=== PATIENT | female | born 1940 | race Caucasian/White ===

== ENCOUNTER → 2017-10-16 16:13 | Outpatient (CLI) | payer MEDICARE, OTHER, SELFPAY ==
--- NOTE | 2017-10-16 16:18 | MM_ITS ---
MM Dig screening mamm BI w/CAD CAD Screening COMPARISON: Digital mammograms 09/26/2016 and 09/23/2015 INDICATION: There is been previous lumpectomy left breast for malignancy and there is a history of breast cancer in patient's maternal aunt diagnosed after menopause. TECHNIQUE: Standard CC and MLO images were obtained. R2 CAD reviewed. FINDINGS: Again noted is a markedly dense and heterogenic parenchymal pattern lessening the sensitivity of mammography. There are stable postlumpectomy scarring in the axillary tail left breast with surgical clips noted. There are few benign-appearing calcification in each breast. There is no new or suspicious lesion in either breast and there are no suspicious microcalcifications. IMPRESSION: Stable exam with dense and heterogenic parenchymal pattern and no suspicious lesion seen BI-RADS Category: 2 Benign Finding(s) RECOMMENDED FOLLOW-UP: 1YR - 1 YEAR FOLLOW-UP (A letter has been sent to the patient regarding results of the study.)
== END ==
PROVIDERS: Family Provider Internal Medicine Adolescent Medicine; PCP Internal Medicine Adolescent Medicine; Visit Provider Internal Medicine Adolescent Medicine
DX: Z12.31 Encounter for screening mammogram for malignant neoplasm of breast (principal)
CPT/HCPCS: 77067

== ENCOUNTER → 2018-05-28 13:30 | Outpatient (CLI) | payer MEDICARE, OTHER, SELFPAY ==
--- NOTE | 2018-05-28 13:34 | MR_ITS ---
MR shoulder LT wo con HISTORY:Left shoulder pain radiating into the neck. Limited range of motion ITS.REASON: ROTATOR CUFF SYNDROME ORDERING PHYSICIAN: Sergey Stout MD PATIENT AGE: 78 years Comparison: None TECHNIQUE: Standard multiplanar multiecho sequences are performed without contrast. FINDINGS: There is complete tear of both the supraspinatus and infraspinatus tendons with retraction of the musculotendinous fibers. A small amount fluid is present in the subdeltoid region. There is acromioclavicular arthropathy with hypertrophic changes of the acromioclavicular joint and subacromial stenosis with heterogeneous increased T2 signal limits of subacromial region. The subscapularis and teres minor tendons appear intact. There is a moderate-sized shoulder joint effusion with fluid in the subcoracoid region consistent with bursitis. Fluid is present within the bicipital tendon sheath. The bicipital tendon of the long head of biceps does appear intact. No obvious labral tear. No fracture or dislocation. IMPRESSION: 1. Complete tear of the supraspinatus and infraspinatus tendons with retraction of the musculotendinous fibers. 2. Subacromial stenosis with acromioclavicular arthropathy and a moderate-sized shoulder joint effusion with subcoracoid bursitis.
== END ==
PROVIDERS: PCP Internal Medicine Adolescent Medicine; Visit Provider Internal Medicine Adolescent Medicine
DX: M75.102 Unspecified rotator cuff tear or rupture of left shoulder, not specified as traumatic (principal)
CPT/HCPCS: 73221

== ENCOUNTER 2018-07-17 10:00 | Outpatient (RCR) | payer MEDICARE, OTHER, SELFPAY | END 2018-08-04 17:00 | disposition home or self-care (01) | LOC: PT 10:00 | PROVIDERS: Visit Provider Nurse Practitioner Family | DX: M75.100 Unspecified rotator cuff tear or rupture of unspecified shoulder, not specified as traumatic (principal); M54.10 Radiculopathy, site unspecified | CPT/HCPCS: 97012; 97014; 97033; 97110; 97163; G0283 ==

== ENCOUNTER → 2018-09-30 09:31 | Outpatient (CLI) | payer MEDICARE, OTHER, SELFPAY ==
--- NOTE | 2018-09-30 | NVE_ITS ---
Venous Exam IMPRESSIONS No evidence of deep or superficial vein thrombosis involving the veins of the left upper extremity History: Swelling in the left upper extremity. Risk factors: Malignancy: History of breast cancer 1998 with left axillary lymph nodes removed.. Patient states she takes two 81 mg ASA daily. Left upper extremity venous duplex. Doppler flow study including spectral analysis, color and garcia scale imaging. Location: Vascular laboratory. Patient status: Outpatient. Tables: Venous flow and imaging: + + + Location Flow properties + + + Left internal jugular Normal phasicity; spontaneous; compressible + + + Left subclavian Normal phasicity; spontaneous; normal augmentation; compressible + + + Left axillary Normal phasicity; spontaneous; normal augmentation; compressible + + + Left brachial Normal phasicity; spontaneous; normal augmentation; compressible + + + Left cephalic Normal phasicity; spontaneous; normal augmentation; compressible + + + Left basilic Normal phasicity ; spontaneous; normal augmentation; compressible + + + Left radial Compressible + + + Left ulnar Compressible + + + (Report amended ) Electronically signed by: Mahamed Muir [id number]
== END ==
PROVIDERS: PCP Internal Medicine Adolescent Medicine; Visit Provider Internal Medicine Adolescent Medicine
DX: M79.89 Other specified soft tissue disorders (principal)
CPT/HCPCS: 93971

== ENCOUNTER → 2018-10-22 14:19 | Outpatient (CLI) | payer MEDICARE, OTHER, SELFPAY ==
--- NOTE | 2018-10-22 14:23 | MM_ITS ---
MM Dig mamm BI DX w/CAD, US breast LT complete INDICATION: Left arm swelling, history of breast cancer, left breast pain ORDERING PHYSICIAN: Sergey Stout MD PATIENT AGE: 78 years COMPARISON: 09/24/2016, 09/23/2015 TECHNIQUE: Standard images performed along with spot compression views of the left breast and left breast ultrasound FINDINGS: There is average to dense fibroglandular tissue. Right breast: Scattered asymmetric densities are present consistent with fibroglandular tissue. Coarse calcification is noted in the upper outer aspect of the right breast. Left breast: There is asymmetric density in the medial aspect of the left breast may represent fibroglandular tissue having a somewhat similar appearance on the previous mammograms. No sonographic correlate. Postsurgical changes are present in the upper outer aspect of the left breast with surgical clips in this region. There is irregular increased parenchymal density at this area likely related to parenchymal scarring from the previous surgery. Left breast ultrasound: There is a 17 x 8 mm area of hypoechogenicity in the upper outer aspect of the left breast with posterior acoustical shadowing corresponding to the mammographic abnormality consistent with scarring. No previous ultrasounds are available for comparison. IMPRESSION: Overall no significant change with no convincing evidence of malignancy. Probable scarring in the upper outer left breast in the biopsy bed. Asymmetric density in the medial aspect of the left breast slightly more prominent. Recommend 6 month mammographic and sonographic follow-up on the left BI-RADS Category: 3 Probably Benign Finding Short Term Follow-up RECOMMENDED FOLLOW-UP: 6M - 6 MONTH FOLLOW-UP (A letter has been sent to the patient regarding results of the study.)
--- NOTE | 2018-10-22 16:07 | CT_ITS ---
CT chest wo/w con HISTORY: ITS.REASON: HISTORY OF LT. BREAST CANCER; LYMPHEDEMA OF LT. ARM ORDERING PHYSICIAN: Sergey Stout MD PATIENT AGE: 78 years COMPARISON: 06/14/2016 Technique: Axial images obtained following the administration of 75 mL of Optiray 350 . Sagittal, and coronal reformatted images are also generated and reviewed. All CT scans at the facility use one or more dose reduction, viz: automated exposure control, ma/kV adjustment per patient size (including targeted exams where dose is matched to indication, i.e. head), or iterative reconstruction technique. FINDINGS: No mediastinal or hilar mass or adenopathy is evident. No axillary adenopathy. There are postsurgical changes of the left breast similar to the previous exam. No evidence of aortic aneurysm or dissection. No evidence of central pulmonary embolus. Superior vena cava is patent. There are coronary artery calcifications present. There is a small hiatal hernia. There are mild fibrotic changes in the lung apices scattered sub-5 mm opacities are noted unchanged calcified granuloma is present in the lingula. No suspicious pulmonary nodules are apparent a stable 6 x 3 mm nodule present in the left posterior costophrenic sulcus. No effusions or infiltrates. Upper abdominal images show postcholecystectomy changes with biliary ectasia. There are degenerative changes of the thoracic spine. No bony lytic changes are evident. IMPRESSION: 1. Overall stable CT appearance of the chest. 2. No evidence of metastatic disease or adenopathy.
== END ==
PROVIDERS: PCP Internal Medicine Adolescent Medicine; Visit Provider Internal Medicine Adolescent Medicine
DX: N64.4 Mastodynia (principal); I89.0 Lymphedema, not elsewhere classified; Z85.3 Personal history of malignant neoplasm of breast
CPT/HCPCS: 71270; 76641; 77066; Q9967

== ENCOUNTER → 2018-11-17 14:03 | Outpatient (CLI) | payer MEDICARE, OTHER, SELFPAY ==
--- NOTE | 2018-11-17 14:12 | XR_ITS ---
XR shoulder LT min 2V HISTORY: Left shoulder pain ITS.REASON: AP, Scapular-y, axillary views ORDERING PHYSICIAN: Evon Salas MD PATIENT AGE: 78 years Comparison: None FINDINGS: There is mild acromioclavicular arthropathy with low-lying acromion which may result in impingement symptomatology. No fracture or dislocation. No lytic or blastic change. IMPRESSION: Subacromial stenosis with mild osteoarthritic change of the acromioclavicular joint
== END ==
PROVIDERS: PCP Internal Medicine Adolescent Medicine; Visit Provider Orthopaedic Surgery
DX: M25.512 Pain in left shoulder (principal)
CPT/HCPCS: 73030

== ENCOUNTER 2018-12-31 13:00 | Outpatient (RCR) | payer MEDICARE, OTHER, SELFPAY ==
--- NOTE | 2018-11-27 11:28 | HMH.PTOPWND ---
Rehab Outpt Wound Evaluation Rehab OP Wound Evaluation Start: 11/27/18 11:03 Freq: Status: Active Protocol: Document 11/27/18 11:20 LORRI (Rec: 11/27/18 11:27 PHORNE [id number]) Electronically Signed By Du Feliz, PT 11/27/18 11:20 Subjective/History History History Pt is a 78 yowf who presents with c/o increased edema in the left UE for several mos with insidious onset of symptoms. She has hx of left breast cancer with lumpectomy and 3 lymph nodes removed ~ 9 yrs ago. She also currently has left RCT complete tears in supraspinatus and infraspinatus per MRI. She reports pain is 1/10 at rest, but 10/10 at worst (most pain is due to RCT tears). She reports PMH of HL, right TKA, and lumbar fusion at unknown levels They put rods in my back. Lymphedema Eval Classification of Lymphedema Secondary Lymphedema Yes Stemmer's sign Stemmer's Sign no Stage of Lymphedema Lymphedema stages Stage I (Pitting edema, reduces w/ elevation, no fibrosis) Skin Changes Dry Skin Yes Pain Scale Pain Scale (0-10) 1 Affected Extremities Areas Affected by Lymphedema/Edema Left Upper Extremity,Left Breast,Left Axilla Manual Lymphatic Drainage Treatment Area MLD Treatment Area Left Upper Extremity,Left Breast,Left Axilla Wound Problems/Impairments Impairments Problems/Impairmments Palpation Tenderness,Impaired Range of Motion,Impaired Strength,Impaired Lifting, Impaired Dressing,Impaired Household Care,Impaired Recreational Activities, Increased Edema,Lymphedema Present,Subjective C/O Pain, Impaired Self Care/Self Management Prognosis Rehab Potential Good Clinical Impression Consistent with Diagnosis Yes Short Term Goals Number of Weeks 4 Decreased Palpation Tenderness Yes: to min Decrease Subjective C/O Pain Yes: 8/10 at worst Patient to Understand Lymphedema Yes Treatment and Exercise
== END 2018-12-31 13:05 | disposition home or self-care (01) ==
LOC: PT 13:00
PROVIDERS: Visit Provider Internal Medicine Adolescent Medicine
DX: I89.0 Lymphedema, not elsewhere classified (principal)
CPT/HCPCS: 97140; 97163

== ENCOUNTER → 2019-02-27 10:25 | Outpatient (CLI) | payer MEDICARE, OTHER, SELFPAY ==
--- NOTE | 2019-02-27 10:29 | XR_ITS ---
EXAM: XR cervical spine 5V HISTORY: ITS.REASON: neck pain ORDERING PHYSICIAN: Evon Salas MD PATIENT AGE: 79 years COMPARISON: None FINDINGS: Bone density and vertebral body heights are normal. There is a 2 mm anterior subluxation of C4 on C5 likely related to the severe facet hypertrophy on the right side. There is moderate to severe loss of disc space height with anterior spurs at C5 5-6 and C6-7. Posterior elements are intact. There are some areas of osseous foraminal encroachment which is moderate on the right because of facet hypertrophy at C3-4 and mild to moderate foraminal encroachment on the left at C3-4, C4-5 and C5-6 and C6/7 due to uncovertebral joint hypertrophy. There are small calcific densities in the mid and left neck area. Impression: C4 on C5 mild subluxation related to facet arthrosis. Multiple levels of right-sided facet arthrosis and associated moderate osseous foraminal stenosis on the right at C3-4. Discussed above multiple levels of spondylosis on the left side. Chronic degenerative disc disease at C5-6 and C6-7. Probable calcific atherosclerotic vascular disease involving bilateral carotid bifurcation areas.
== END ==
PROVIDERS: PCP Internal Medicine Adolescent Medicine; Visit Provider Orthopaedic Surgery
DX: M54.2 Cervicalgia (principal)
CPT/HCPCS: 72050

== ENCOUNTER → 2019-03-13 09:01 | Outpatient (CLI) | payer MEDICARE, OTHER, SELFPAY ==
--- NOTE | 2019-03-13 09:22 | CT_ITS ---
CT abdomen pelvis wo/w con CLINICAL INDICATION: Left-sided pain into the left groin area ITS.REASON: RKISTEN FEMORAL HERNIA W/O OBSTRUCTION ORDERING PHYSICIAN: Sergey Stout MD PATIENT AGE: 79 years COMPARISON: None TECHNIQUE: Contrast Used:75ml Optiray 350 Oral Contrast: 450ml Redicat Axial images obtained without and with contrast with sagittal and coronal reformats. All CT scans at the facility use one or more dose reduction, viz: automated exposure control, ma/kV adjustment per patient size (including targeted exams where dose is matched to indication, i.e. head), or iterative reconstruction technique. FINDINGS: Patchy areas of atelectasis or scarring present in the right middle lobe and lingula. There is a small hiatal hernia. There has been a prior cholecystectomy. Coronary artery calcifications are present. There are postcholecystectomy changes with mild prominence of the biliary tree. The spleen, adrenal glands, pancreas, and kidneys have an unremarkable appearance. No renal or ureteral calculi. No hydronephrosis. There is a small linear area of decreased attenuation in the body/tail the pancreas at approximately 12 x 3 mm nonspecific and may represent a cleft and partial volume averaging artifact. Post hysterectomy changes. No pelvic mass abnormal fluid collection or focal inflammatory change. No evidence of inguinal or femoral hernia. Artifact is present from the lumbar spine. There has been prior posterior fusion at L3-L4 and L5. IMPRESSION: 1. No acute abdominal or pelvic findings. 2. No evidence of inguinal or femoral hernia. No intestinal obstruction or free air. No evidence of appendicitis or diverticulitis. There are posthysterectomy changes
== END ==
PROVIDERS: PCP Internal Medicine Adolescent Medicine; Visit Provider Internal Medicine Adolescent Medicine
DX: K41.20 Bilateral femoral hernia, without obstruction or gangrene, not specified as recurrent (principal)
CPT/HCPCS: 74178; Q9967

== ENCOUNTER → 2019-04-13 13:59 | Outpatient (POV) | payer MEDICARE, OTHER, SELFPAY | PROVIDERS: PCP Internal Medicine Adolescent Medicine; Visit Provider Nurse Practitioner Family | DX: Z00.00 Encounter for general adult medical examination without abnormal findings (principal) ==

== ENCOUNTER → 2019-04-28 12:54 | Outpatient (CLI) | payer MEDICARE, OTHER, SELFPAY ==
--- NOTE | 2019-04-28 12:57 | MM_ITS ---
PROCEDURE: MM DIG MAMM DX UNILAT LT CAD CLINICAL INDICATION: ABNORMAL MAMM The COMPARISON: DIAG MAMMO BI-LAT W/ CAD from 08/22/2011 DIAG MAMMO BI-LAT W/ CAD from 09/02/2013 [facility] DIG MAMM-SCREEN KRISTEN W/CAD from 09/26/2016 [facility] MM Dig screening mamm BI w/CAD from 10/16/2017 BREASTLT US breast LT complete from 10/22/2018 [facility] MM Dig mamm BI DX w/CAD from 10/22/2018 US BREAST LT COMPLETE from 04/28/2019 TECHNIQUE: Standard CC and MLO images were obtained. R2 CAD reviewed. Left breast ultrasound complete with axilla FINDINGS: Average to dense fibroglandular tissue. Surgical clips are present in the upper outer aspect of left breast toward the axilla. At this area there is a persistent nodular the lesion measuring 14 x 11 mm which is stable compared to multiple previous exams suggesting an area of scarring. Asymmetry once again noted involving the medial aspect of the left breast overall not significantly changed. No sonographic correlate. Left breast ultrasound: Hypoechoic area once again noted in the 1 o'clock region in the upper outer aspect of the left breast at 15 x 7 mm similar to the previous exam with posterior acoustical shadowing stones stable over multiple previous years and may represent an area of scarring. The remaining breast has an unremarkable appearance. IMPRESSION: Overall no change in the asymmetry in the medial aspect of the left breast in the nodule in the upper outer left breast felt to represent scarring on multiple previous studies there is some nodularity in the medial aspect of the left breast which appears stable dating back to 10/16/2017. No sonographic correlate. Probably benign. Recommend bilateral 6 month follow-up to put the patient back on schedule in October of 2019 BI-RAD Category: 3 Probably Benign Finding Short Term Follow-up FOLLOW-UP: 6M 6Month Follow-up (A letter has been sent to the patient regarding results of the study.) Dictated by: Mahamed Muir MD 05/01/2019 10:46 Electronically signed by Mahamed Muir MD in [place] 05/01/2019 10:46
== END ==
PROVIDERS: PCP Internal Medicine Adolescent Medicine; Visit Provider Internal Medicine Adolescent Medicine
DX: R92.8 Other abnormal and inconclusive findings on diagnostic imaging of breast (principal)
CPT/HCPCS: 76641; 77065

== ENCOUNTER → 2019-05-18 10:30 | Outpatient (POV) | payer MEDICARE, OTHER, SELFPAY ==
[2019-05-18 11:18] VITALS: BP 138/73; PULSE 79; RESP 18; O2SAT 98; BMI 22.1
--- NOTE | 2019-05-19 10:54 | HMH.PMCON ---
Assessment and Plan (1) Facet arthropathy Current visit: Yes Status: Chronic Category: Medical Code(s): M47.819 - Spondylosis without myelopathy or radiculopathy, site unspecified (2) Facet arthropathy, lumbar Current visit: Yes Status: Chronic Category: Medical Code(s): M47.816 - Spondylosis without myelopathy or radiculopathy, lumbar region - Assessment and plan all Dx Assessment and Plan for all problems:: We will plan on a medial branch block at L3-L4 L4-L5 L5-S1 bilaterally. I believe it would be beneficial for the patient. She may be a neurotomy candidate we did discuss the diagnostic nature of this injection. She understands that and would still like to move forward she is not on any anticoagulation therapy. She is continuing a home stretching program. She is failed over 6 months of conservative therapies including medications and epidural injections. Dr. Garvin has reviewed this note and agrees with this plan of care. This note was dictated using voice recognition software and may contain errors or omissions HPI - Data of Consult Consult date: 05/18/19 Requesting Physician: Stacie Zhao APRN Primary Care Provider: Sergey Stout MD - Consult Narrative Reason for consult: Back pain History of present illness: Ms. Singleton is a 79 year old female who presents for consultation in regards to her low back pain. Patient had surgery by Dr. Adrien hagen. She was receiving injections however she was not getting any relief from it. Patient is tried epidural injections with no benefit. We discussed potentially medial branch block injections. Patient has a very focal pain it is nonradiating. She has difficulty with mopping in any kind of twisting movement. She rates her pain today a 6 out of 10. She is tried and failed epidural injections, physical therapy, she has had pain for over 6 months. CC: Stacie Zhao APRN [facility] History I have reviewed the patient's past medical history: Yes Medical History: Reports:: Cancer Denies:: Diabetes Mellitus Type 1, Diabetes Mellitus Type 2, Lung Disease, Seizures *Have you ever received a pneumonia vaccine?: Yes *Have you received a flu vaccine this season?: Yes Other Medical History: Reports: Radiation Therapy Laterality Cases: Left: Breast Biopsy Other Surgeries: Yes: Hysterectomy-Total - *Social History Smoking Status: Never smoker Alcohol Intake: never Alcohol Intake Frequency:: 3 or more drinks per day *Occupational Status:: other Housing: house Household Members: other *Travel in the last 8 weeks: None Family Hx:: No significant family history Review of Systems - Review of Systems ROS General: no recent weight change, no fever, no sleep disturbances Respiratory: no cough, no shortness of air, no recurring pulmonary infections Cardiovascular/Peripheral Vascular: No chest pain, No palpitations, no edema, no shortness of breath. Gastrointestinal: no new onset incontinence, normal bowel movements reported Genitourinary: no new onset incontinence Musculoskeletal: Back pain Psychiatric: normal mood/ affect Neurological: [denies new onset weakness in extremities], [denies new onset balance issues] Meds Home Medications Medication Instructions Recorded Confirmed Type Atorvastatin Calcium [Atorvastatin 40 mg PO DAILY 02/20/18 03/01/19 History 40mg Tab] Calcium Carbonate [Calcium] 600 mg PO DAILY 02/20/18 03/01/19 History [place]-3 Fatty Acids [Fish Oil] 300 mg PO DAILY 02/20/18 03/01/19 History buPROPion HCl [Bupropion HCl Sr] 150 mg PO DAILY 02/20/18 03/01/19 History cholecalciferol (vitamin D3) 5,000 5,000 unit PO DAILY 11/17/18 03/01/19 History unit capsule melatonin 5 mg capsule 5 mg PO ONCE cap 11/17/18 03/01/19 History multivitamin,[id number] 1 tab PO DAILY 11/17/18 03/01/19 History tablet gabapentin 300 mg capsule 300 mg PO DAILY 02/27/19 03/01/19 History Azithromycin [Zithromax 250mg 250 mg PO DIRECTED #6
== END ==
PROVIDERS: PCP Internal Medicine Adolescent Medicine; Visit Provider Clinical Nurse Specialist Family Health
DX: M47.816 Spondylosis without myelopathy or radiculopathy, lumbar region (principal)
CPT/HCPCS: 99202

== ENCOUNTER → 2019-05-25 08:46 | Outpatient (POV) | payer MEDICARE, OTHER, SELFPAY | PROVIDERS: PCP Internal Medicine Adolescent Medicine; Visit Provider Nurse Practitioner Family | DX: Z00.00 Encounter for general adult medical examination without abnormal findings (principal) ==

== ENCOUNTER → 2019-07-13 14:56 | Outpatient (POV) | payer MEDICARE, OTHER, SELFPAY ==
[2019-07-13 15:30] VITALS: BP 152/80; PULSE 84; RESP 18; O2SAT 98; BMI 22.9
--- NOTE | 2019-07-14 08:26 | HMH.PAINSOAP ---
[facility] Pain Management SOAP Note Subjective:: She is a pleasant 79-year-old white female who presents today for follow-up after a medial branch block at L3-L4 L4-L5 L5-S1 bilaterally. Patient is reporting 90% relief of her symptoms for 2 weeks her pain is begun to return. Patient would like to repeat this because I do believe that she is a potential neurotomy candidate and she may want to move forward with an RFA. Patient is not on any anticoagulation therapy. Patient is continuing anti-inflammatories and a home stretching program. 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 Gastrointestinal: no new onset incontinence, normal bowel movements reported Genitourinary: no new onset incontinence Musculoskeletal: Back pain Psychiatric: normal mood/ affect Neurological: [denies new onset weakness in extremities], [denies new onset balance issues] Objective:: Physical Exam General: Alert and oriented x3, no acute distress, pleasant and cooperative, [on room air] Lungs: Resps E/U, Symmetrical chest expansion, Eyes: PERRL Musculoskeletal: Flexion and extension of lumbar spine somewhat guarded secondary to pain, deep tendon reflexes normal, strength in upper and lower extremities [5/5], [abnormal gait noted] Neurological: speech clear, manager customs equal, no gross sensory deficits Assessment:: 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 I will follow-up with her after this reassess her symptoms that time she is been instructed to call the office if she has any issues prior to her next appointment. Dr. Garvin has reviewed this note and agrees with this plan of care. This note was dictated using voice recognition software and may contain errors or omissions [facility] History I have reviewed the patient's past medical history: Yes Medical History: Reports:: Cancer, Hyperlipidemia Denies:: Diabetes Mellitus Type 1, Diabetes Mellitus Type 2, Lung Disease, Seizures *Have you ever received a pneumonia vaccine?: Yes *Have you received a flu vaccine this season?: Yes Other Medical History: Reports: Radiation Therapy Laterality Cases: Left: Breast Biopsy Other Surgeries: Yes: Hysterectomy-Total - *Social History Smoking Status: Never smoker Alcohol Intake: never Alcohol Intake Frequency:: 3 or more drinks per day *Occupational Status:: other Housing: house Household Members: other *Travel in the last 8 weeks: None Family Hx:: No significant family history
== END ==
PROVIDERS: PCP Internal Medicine Adolescent Medicine; Visit Provider Clinical Nurse Specialist Family Health
DX: M51.36 Other intervertebral disc degeneration, lumbar region (principal); M47.816 Spondylosis without myelopathy or radiculopathy, lumbar region; M54.06 Panniculitis affecting regions of neck and back, lumbar region
CPT/HCPCS: 99212

== ENCOUNTER → 2019-08-24 13:48 | Outpatient (POV) | payer MEDICARE, OTHER, SELFPAY ==
[2019-08-24 14:35] VITALS: BP 133/71; PULSE 80; RESP 18; O2SAT 98; BMI 22.9
--- NOTE | 2019-08-25 09:35 | P.CONS_ITS ---
[facility] Pain Management SOAP Note Subjective:: Patient is a pleasant 79-year-old white female presents today for follow-up after lumbar medial branch block. She got some relief however it did not last long. She rates her pain a 1 out of 10. Patient had one medial branch block where she got a significant amount of relief. However patient states that she does have diverticulitis and is been having issues with this. On Saturday she has an appointment to be seen by the mercury recoverer. I do believe that this needs to be discussed in regards to potentially referred pain in her back. I will follow-up with her in 2 weeks reassess her symptoms at that time and will decide where to move forward in regards to her low back pain control. ROS General: no recent weight change, no fever, no sleep disturbances Respiratory: no cough, no shortness of air, no recurring pulmonary infections Cardiovascular/Peripheral Vascular: No chest pain, No palpitations, no edema, no shortness of breath. Gastrointestinal: no new onset incontinence, normal bowel movements reported Genitourinary: no new onset incontinence Musculoskeletal: Back pain, abdominal pain Psychiatric: normal mood/ affect Neurological: [denies new onset weakness in extremities], [denies new onset balance issues] Objective:: Physical Exam General: Alert and oriented x3, no acute distress, pleasant and cooperative, [on room air] Lungs: Resps E/U, Symmetrical chest expansion, Eyes: PERRL Musculoskeletal: Flexion and extension of lumbar ssomewhat guarded secondary to pain, deep tendon reflexes normal, strength in upper and lower extremities [5/5], slightly antalgic gait noted Neurological: speech clear, remelt sugar boiler equal, no gross sensory deficits Assessment:: 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 Dr. Garvin has reviewed this note and agrees with this plan of care. This note was dictated using voice recognition software and may contain errors or omissions [facility] History I have reviewed the patient's past medical history: Yes Medical History: Reports:: Cancer, Hyperlipidemia Denies:: Diabetes Mellitus Type 1, Diabetes Mellitus Type 2, Lung Disease, Seizures *Have you ever received a pneumonia vaccine?: Yes *Have you received a flu vaccine this season?: Yes Other Medical History: Reports: Radiation Therapy Laterality Cases: Left: Breast Biopsy Other Surgeries: Yes: Hysterectomy-Total - *Social History Smoking Status: Never smoker Alcohol Intake: never Alcohol Intake Frequency:: 3 or more drinks per day *Occupational Status:: other Housing: house Household Members: other *Travel in the last 8 weeks: None Family Hx:: No significant family history
== END ==
PROVIDERS: PCP Internal Medicine Adolescent Medicine; Visit Provider Clinical Nurse Specialist Family Health
DX: M51.36 Other intervertebral disc degeneration, lumbar region (principal); M47.816 Spondylosis without myelopathy or radiculopathy, lumbar region; M54.06 Panniculitis affecting regions of neck and back, lumbar region; E78.5 Hyperlipidemia, unspecified; Z88.2 Allergy status to sulfonamides
CPT/HCPCS: 99212

== ENCOUNTER → 2019-08-31 12:47 | Outpatient (POV) | payer MEDICARE, OTHER, SELFPAY | PROVIDERS: Visit Provider Nurse Practitioner Family | DX: Z00.00 Encounter for general adult medical examination without abnormal findings (principal) ==

== ENCOUNTER → 2019-09-07 13:34 | Outpatient (POV) | payer MEDICARE, OTHER, SELFPAY ==
[2019-09-07 15:13] VITALS: BP 150/79; PULSE 83; RESP 18; O2SAT 98; BMI 23.6
--- NOTE | 2019-09-08 08:48 | HMH.PAINSOAP ---
[facility] Pain Management SOAP Note Subjective:: Patient is a pleasant 79-year-old white female who presents today for follow-up. Patient had 2 lumbar medial branch blocks and received 80% relief of her symptoms with these. Patient is interested in moving forward with a neurotomy/RFA I do believe this would be beneficial. Patient is not on any anticoagulation therapy. She is continuing with anti-inflammatories. She rates her pain today at 3 out of 10. She has a positive Kemps test and facet loading lumbar spine. ROS General: no recent weight change, no fever, no sleep disturbances Respiratory: no cough, no shortness of air, no recurring pulmonary infections Cardiovascular/Peripheral Vascular: No chest pain, No palpitations, no edema, no shortness of breath. Gastrointestinal: no new onset incontinence, normal bowel movements reported Genitourinary: no new onset incontinence Musculoskeletal: Back pain Psychiatric: normal mood/ affect, [denies depression], [denies anxiety] Neurological: [denies new onset weakness in extremities], [denies new onset balance issues] Objective:: Physical Exam General: Alert and oriented x3, no acute distress, pleasant and cooperative, [on room air] Lungs: Resps E/U, Symmetrical chest expansion, Eyes: PERRL Musculoskeletal: Flexion and extension of lumbar spine somewhat guarded secondary to pain, deep tendon reflexes normal, strength in upper and lower extremities [5/5], slightly antalgic gait noted Neurological: speech clear, folder operator equal, no gross sensory deficits Assessment:: Degenerative disc disease lumbar spine with lumbar spondylosis and facet arthropathy Plan:: We will plan an L3-4 L4-L5 L5-S1 bilateral RFA starting with the right side and then in 2 weeks we will do the left side. She is been instructed to call the office if she has any issues prior to her next appointment. I will follow-up with her after her injections reassess her symptoms at that time. Dr. Garvin has reviewed this note and agrees with this plan of care. This note was dictated using voice recognition software and may contain errors or omissions [facility] History I have reviewed the patient's past medical history: Yes Medical History: Reports:: Cancer, Hyperlipidemia Denies:: Diabetes Mellitus Type 1, Diabetes Mellitus Type 2, Lung Disease, Seizures *Have you ever received a pneumonia vaccine?: Yes *Have you received a flu vaccine this season?: Yes Other Medical History: Reports: Radiation Therapy Laterality Cases: Left: Breast Biopsy Other Surgeries: Yes: Hysterectomy-Total - *Social History Smoking Status: Never smoker Alcohol Intake: never Alcohol Intake Frequency:: 3 or more drinks per day *Occupational Status:: other Housing: house Household Members: other *Travel in the last 8 weeks: None Family Hx:: No significant family history
== END ==
PROVIDERS: PCP Internal Medicine Adolescent Medicine; Visit Provider Clinical Nurse Specialist Family Health
DX: M51.36 Other intervertebral disc degeneration, lumbar region (principal); M47.816 Spondylosis without myelopathy or radiculopathy, lumbar region; M54.06 Panniculitis affecting regions of neck and back, lumbar region
CPT/HCPCS: 99212

== ENCOUNTER → 2019-09-21 14:08 | Outpatient (CLI) | payer MEDICARE, OTHER, SELFPAY ==
--- NOTE | 2019-09-21 14:08 | MR_ITS ---
PROCEDURE: MR SHOULDER LT WO CON CLINICAL INDICATION: shoulder pain COMPARISON: No exams were available for comparison TECHNIQUE: Routine multiplanar multisequence exam was performed. FINDINGS: There is some patient motion artifact degradation of images. There are full-thickness tears with retraction of the supraspinatus and infraspinatus tendons of the rotator cuff. There is some signal abnormality with thickening of the subscapularis tendon as it overlies the anterior medial humeral head. Tendinosis or partial substance tearing there should be considered. Bicipital tendon is in place. A greater than normal amount of fluid is seen in the bicipital tendon sheath. A large glenohumeral joint effusion is noted. A moderate amount of fluid is seen in the subacromial/subdeltoid bursa. There is no definite labral tear. There is superior subluxation of the humeral head at the glenohumeral joint with decreased acromial humeral distance which is approximately 4 millimeters. There is mild AC joint arthropathy with fluid in the acromioclavicular joint space and there is marginal spurring off of the inferior margin of the distal clavicle. IMPRESSION: Full-thickness tears with retraction of the supraspinatus and infraspinatus tendons of the rotator cuff. Partial-thickness tear of the subscapularis tendon versus tendinosis Large joint effusion with acromioclavicular joint arthropathy. Dictated by: Chris Bartholomew 09/21/2019 16:39 Electronically signed by Chris Bartholomew in [place] 09/21/2019 16:39
== END ==
PROVIDERS: PCP Internal Medicine Adolescent Medicine; Visit Provider Orthopaedic Surgery
DX: M75.102 Unspecified rotator cuff tear or rupture of left shoulder, not specified as traumatic (principal)
CPT/HCPCS: 73221

== ENCOUNTER → 2019-10-01 09:59 | Outpatient (CLI) | payer MEDICARE, OTHER, SELFPAY ==
--- NOTE | 2019-10-01 10:05 | XR_ITS ---
PROCEDURE: XR SHOULDER LT MIN 2V CLINICAL INDICATION: grashey,scapular y and axillary Left shoulder pain with limited range of, rotator cuff tear COMPARISON: [id number] XR shoulder LT min 2V from 11/17/2018 FINDINGS: No fracture, dislocation, lytic change, or blastic change evident. No significant degenerative change IMPRESSION: Negative radiographs of left shoulder Dictated by: Mahamed Muir MD 10/01/2019 11:28 Electronically signed by Mahamed Muir MD in [place] 10/01/2019 11:28
== END ==
PROVIDERS: PCP Internal Medicine Adolescent Medicine; Visit Provider Orthopaedic Surgery
DX: M75.102 Unspecified rotator cuff tear or rupture of left shoulder, not specified as traumatic (principal)
CPT/HCPCS: 73030

== ENCOUNTER → 2019-10-26 13:32 | Outpatient (CLI) | payer MEDICARE, OTHER, SELFPAY ==
--- NOTE | 2019-10-26 13:40 | MM_ITS ---
PROCEDURE: MM DIG MAMM BI DX W/CAD Digital Breast Tomosynthesis Included CLINICAL INDICATION: ABN MAMM Follow-up abnormal mammogram COMPARISON: DMSB DIG MAMM-SCREEN KRISTEN W/CAD from 09/26/2016 [facility] MM Dig screening mamm BI w/CAD from 10/16/2017 [facility] MM Dig mamm BI DX w/CAD from 10/22/2018 US BREAST LT COMPLETE from 04/28/2019 MM DIG MAMM DX UNILAT LT CAD from 04/28/2019 TECHNIQUE: Standard CC and MLO images and 3D Tomosynthesis was obtained. R2 CAD reviewed. FINDINGS: There is average fibroglandular tissue. Scattered benign-appearing calcifications are noted. A cluster of coarse calcifications noted in the superior aspect of the right breast unchanged. Postsurgical changes are present in the left breast with asymmetry in the upper aspect of the left breast consistent with scarring overall not significantly changed dating back to 10/16/2017. No new nodules or malignant-appearing microcalcifications evident asymmetry once again noted in the medial aspect of the left breast also unchanged from 10/16/2017. IMPRESSION: BI-RAD Category: 2 Benign Finding(s) FOLLOW-UP: 1YR 1 Year Follow-up the (A letter has been sent to the patient regarding results of the study.) Dictated by: Mahamed Muir MD 11/10/2019 12:45 Electronically signed by Mahamed Muir MD in [place] 11/10/2019 12:45
== END ==
PROVIDERS: PCP Internal Medicine Adolescent Medicine; Visit Provider Internal Medicine Adolescent Medicine
DX: R92.8 Other abnormal and inconclusive findings on diagnostic imaging of breast (principal)
CPT/HCPCS: 77062; 77066; G0279

== ENCOUNTER → 2019-11-02 14:56 | Outpatient (POV) | payer MEDICARE, OTHER, SELFPAY ==
[2019-11-02 15:12] VITALS: BP 139/71; PULSE 81; RESP 18; O2SAT 99; BMI 22.9
--- NOTE | 2019-11-02 15:52 | HMH.PAINSOAP ---
[facility] Pain Management SOAP Note Subjective:: This visit was performed via telemedicine. The patient has chosen to have telemedicine visit for his/her symptoms due to risk associated with COVID19 Patient is a pleasant 79-year-old white female who presents today for follow-up after RFA of the facet joint/medial branches of L3-L4 L4-L5 and L5-S1 on the left side. She is being treated for low back pain with lumbar radiculopathy symptoms as well as facet arthropathy and lumbar spondylosis. She is also treated for postlaminectomy syndrome lumbar spine. Patient says that she got approximately 1 to 2 days of relief following the injection up to 40%. She says that her pain did return. Patient does not feel as though the RFA relieved her pain. She says that her pain is worse with walking. She says that standing is near impossible . She says that she does continue with a stretching program at home. She has had physical therapy in the past. She continues to use Biofreeze along with ice and heat therapies. Patient says she recently started using CBD cream to see if she can get relief. She does not seem to be getting any relief at this time. She does rate her pain a 4 out of 10 today. Review of Systems General: No recent weight changes, no fever, no sleep disturbances Respiratory: No cough, no shortness of air, no recurring pulmonary infections Cardiovascular/peripheral vascular: No chest pain, no palpitations, no edema, no shortness of breath Gastrointestinal: No new onset incontinence, normal bowel movements reported Genitourinary: No new onset incontinence Musculoskeletal: Low back pain Psychiatric: Normal mood/affect Neurological: [Denies weakness in extremities], [denies balance issues] Objective:: Physical exam constitutional: Healthy appearing, well-developed, alert and oriented, no acute distress noted Psychiatric: Judgment and insight intact. Mood normal, affect appropriate Head: Normocephalic, atraumatic, extraocular movement intact Respiratory: Nonlabored, non-dyspneic Cardiovascular: No cyanosis, no clubbing, no edema observed Skin: Head and neck, no lesions or rashes noted. Bilateral upper extremities no lesions or rashes noted Gait: Able to walk without assist of heel and toe walk Neurological: Sensation grossly intact per patient C3-T1 Musculoskeletal: Full range of motion, positive straight leg raise Assessment:: Degenerative disc disease lumbar spine with lumbar facet arthropathy and lumbar spondylosis, postlaminectomy syndrome lumbar spine Plan:: The patient I did discuss possible spinal cord stimulation. She understands that we will not be able to proceed with any type of elective procedures at this time. For now, however, we will give the patient Pennsaid cream to see if this relieves any of her pain. If she does get relief, we will call in diclofenac gel 1% 4 g topical 4 times daily. She is unable to tolerate oral anti-inflammatories due to severe GI upset even when taken with Pepcid. We will see the patient back in the clinic in 1 month to reassess her symptoms. If the patient has any concerns before her next appointment she has been instructed to contact the clinic. Dr. Garvin has reviewed this note and agrees with this plan of care. This note was dictated using voice recognition software and make contain errors or omissions. This encounter was performed as telemedicine. The visit was performed via a secure to a video and audio to minimize risk and transmission of COVID19. Patient understands limitations of telemedicine visits which include inability to check reflexes, possibly missing subtle findings on the physical exam. Alternative options were presented to the patient and the patient did elect to proceed with the visit. The patient and I specifically discussed risk factors for COVID19. These risks include, but are not limited to age greater than 60, heart or lung disease, diabetes, immunosupp
== END ==
PROVIDERS: PCP Internal Medicine Adolescent Medicine; Visit Provider Clinical Nurse Specialist Family Health
DX: M51.36 Other intervertebral disc degeneration, lumbar region (principal); M54.06 Panniculitis affecting regions of neck and back, lumbar region; M47.816 Spondylosis without myelopathy or radiculopathy, lumbar region; M96.1 Postlaminectomy syndrome, not elsewhere classified
CPT/HCPCS: 99212

== ENCOUNTER → 2019-12-01 09:00 | Outpatient (POV) | payer MEDICARE, OTHER, SELFPAY ==
[2019-12-01 09:37] VITALS: BP 143/73; PULSE 83; RESP 18; TEMP 36.8; O2SAT 97; BMI 22.9
--- NOTE | 2019-12-01 11:32 | HMH.PAINSOAP ---
[facility] Pain Management SOAP Note Subjective:: Patient is a pleasant 79-year-old white female who presents today for follow-up. Patient has had multiple injections and radiofrequency ablations with no success in regards to pain relief. She has no pain when she is sitting however she is unable to walk secondary to pain. She has had lumbar spine surgery and since then she has had quite a few issues in regards to it. We had a long discussion in regards to neuro stimulation. I do believe that this would benefit her. Most of her pains in her low back and legs. Patient and I discussed the Medtronic system she would like to move forward with a trial in regards to this. Patient and I went over all of the risks and benefits together I provided her with information in regards to it as well. She is tried conservative treatments including physical therapy, anti-inflammatories, medications for over a year she is also tried multiple injection therapies over a year including facet joint injections and radiofrequency ablations. She is also had surgery of her lumbar spine with no pain relief. We will move forward with a neurostimulator trial. She rates her pain today an 8 out of 10 while walking ROS General: no recent weight change, no fever, no sleep disturbances Respiratory: no cough, no shortness of air, no recurring pulmonary infections Cardiovascular/Peripheral Vascular: No chest pain, No palpitations, no edema, no shortness of breath. Gastrointestinal: no new onset incontinence, normal bowel movements reported Genitourinary: no new onset incontinence Musculoskeletal: Back pain, leg pain Psychiatric: normal mood/ affect Neurological: [denies new onset weakness in extremities], [denies new onset balance issues] Objective:: Physical Exam General: Alert and oriented x3, no acute distress, pleasant and cooperative, [on room air] Lungs: Resps E/U, Symmetrical chest expansion, Eyes: PERRL Musculoskeletal: Flexion and extension of lumbar spine somewhat guarded secondary to pain, deep tendon reflexes normal, strength in upper and lower extremities [5/5], antalgic gait noted Neurological: speech clear, wigs salesperson equal, no gross sensory deficits Assessment:: Postlaminectomy syndrome lumbar radiculopathy Plan:: We will schedule patient for a neurostimulator trial. Will use EnzymeRx DTM therapy. Patient is not on any anticoagulation therapy. I will follow-up with her after the trial reassess her symptoms at that time she has been instructed to call the office if she has any issues prior to her next appointment. Dr. Garvin has reviewed this note and agrees with this plan of care. This note was dictated using voice recognition software and may contain errors or omissions [facility] History I have reviewed the patient's past medical history: Yes Medical History: Reports:: Cancer (Breast), Hyperlipidemia Denies:: Diabetes Mellitus Type 1, Diabetes Mellitus Type 2, Lung Disease, MRSA, Seizures *Have you ever received a pneumonia vaccine?: Yes *Have you received a flu vaccine this season?: Yes Other Medical History: Reports: Arthritis, Radiation Therapy. Denies: Blood Transfusion Reaction Laterality Cases: Left: Breast Biopsy Other Surgeries: Yes: Hysterectomy-Total Amputation: No - *Social History Smoking Status: Never smoker Alcohol Intake: never Alcohol Intake Frequency:: 3 or more drinks per day *Occupational Status:: other Housing: house Household Members: other *Travel in the last 8 weeks: None Family Hx:: No significant family history
== END ==
PROVIDERS: PCP Internal Medicine Adolescent Medicine; Visit Provider Clinical Nurse Specialist Family Health
DX: M96.1 Postlaminectomy syndrome, not elsewhere classified (principal); M54.16 Radiculopathy, lumbar region
CPT/HCPCS: 99212

== ENCOUNTER → 2019-12-07 10:48 | Outpatient (CLI) | payer MEDICARE, OTHER, SELFPAY ==
[2019-12-07 11:36] LABS: Basophils % 0.5 % (0.1-2.0); Eosinophils # 0.1 K/mm3 (0.0-0.4); Eosinophils % 2.1 % (0.1-12.0); Hematocrit 37.3 % (37.0-47.0); Hemoglobin 12.3 g/dL (12.2-16.2); Lymphocytes # 1.4 K/mm3 (0.7-4.5); Lymphocytes % 23.5 % (10-50); Mean Corpuscular HGB Conc 33.1 g/dL (31.8-35.4); Mean Corpuscular Hemoglobin 32.5 pg (27.0-31.2); Mean Corpuscular Volume 98.2 fl (81-99); Mean Platelet Volume 8.1 fl (7.4-10.4); Monocytes # 0.3 K/mm3 (0.1-1.0); Monocytes % 5.7 % (1.7-9.3); Neutrophils % 68.1 % (37.0-80.0); Platelet Count 264 K/mm3 (142-424); Red Cell Distribution Width 12.6 % (11.5-17.5); White Blood Count 5.9 K/mm3 (4.8-10.8)
[2019-12-07 12:54] LABS: Anion Gap 8.8 mEq/L (5-15); Blood Urea Nitrogen 17 mg/dl (7-17); Calcium 9.7 mg/dl (8.4-10.2); Carbon Dioxide 30 mmol/L (22.0-30.0); Chloride 104 mmol/L (98-107); Estimated Glomerular Filt Rate 81 ml/min (>60); GFR (African American) 98 ML/MIN (>60); Glucose 96 mg/dl (74-100); Potassium 4.8 mmoL/L (3.5-5.1); Sodium 138 mmol/L (136-145)
[2019-12-08 08:53] LABS: Covid-19 Nasal PCR Sendout Lex NOT DETECTED
--- NOTE | 2019-12-08 10:13 | PC.NURSE ---
0933- pt, Agustina WALKER & Rhona WALKER notified of negative COVID 19 results.
== END ==
PROVIDERS: Visit Provider Anesthesiology
DX: Z01.818 Encounter for other preprocedural examination (principal)
CPT/HCPCS: 36415; 80048; 85025; U0003

== ENCOUNTER 2019-12-09 08:30 | Day surgery (SDC) | payer MEDICARE, OTHER, SELFPAY ==
--- NOTE | 2019-12-04 13:42 | SUR.PREOP ---
12/04/19 @ 4427--PHONE CALL MADE TO PATIENT. PATIENT UNDERSTANDS THAT LAB WORK AND COVID-19 TESTING NEEDS TO BE COMPLETED @ 1030 ON 12/07/19. PATIENT UNDERSTANDS IF LAB WORK AND COVID-19 TESTS ARE NOT COMPLETED BY 12PM ON THAT DATE, THE SURGERY SCHEDULED WILL BE CANCELLED AND RESCHEDULED FOR ANOTHER TIME.
[2019-12-08 10:52] VITALS: BMI 23.3
[2019-12-09] VITALS (7 sets, daily range): BP systolic 124–158; BP diastolic 59–83; PULSE 70–92; RESP 18; TEMP 36.4–36.7; O2SAT 98–100
--- NOTE | 2019-12-09 09:10 | HMH.ANESCL ---
[facility] Anesthesia Checklist - Patient Identification Patient Identification: Arm Band - Structural Data Admitted From: Home Planned Operative Procedure/s: trial neurostimulator leads placement under fluoroscopy Consent for Planned Operative Procedure(s) Verified: Yes Verified Documents: Surgical Consent, History and Physical - NPO Status Verified Time NPO: 00:00 - Additional verifications Anesthesia Reactions: No Hx Blood Transfusions: Yes Blood Transfusion Reaction: No - Airway Assessment C-Spine Mobility Assessed: Yes (mp2) TMJ Mobility Assessed: Yes Dentition: Edentulous - Neurological Assessment Level of Consciousness: Awake, Alert - Anesthesia Plan Anesthesia Risk discussed: Yes Anesthesia Plan: Verified ASA Class: II Anesthesia Type: MAC [facility] History I have reviewed the patient's past medical history: Yes Medical History: Reports:: Anxiety, Cancer (left breast), Depression, Hyperlipidemia Denies:: Diabetes Mellitus Type 1, Diabetes Mellitus Type 2, Internal Pacemaker, Lung Disease, MRSA, Seizures *Have you ever received a pneumonia vaccine?: Yes *Have you received a flu vaccine this season?: Yes Other Medical History: Reports: Arthritis, Radiation Therapy. Denies: Blood Transfusion Reaction Anesthesia experience/problems:: nac Laterality Cases: Left: Breast Biopsy, Lumpectomy, Right: Total Knee Replacement, Bilateral: Cataract Other Surgeries: Yes: Hysterectomy-Total, Other. No: Pacemaker Amputation: No - *Social History Educational Level: Completed High School Smoking Status: Never smoker Alcohol Intake: never Alcohol Intake Frequency:: 3 or more drinks per day Substance Use Type: denies use *Occupational Status:: retired Housing: house Household Members: other *Travel in the last 8 weeks: None Family Hx:: Cancer, Coronary Artery Disease, Diabetes, Heart Attack, Tuberculosis
--- NOTE | 2019-12-09 09:46 | XR_ITS ---
PROCEDURE: XR LUMBAR SPINE 2-3V CLINICAL INDICATION: verification of spinal cord stimulator leads COMPARISON: No exams were available for comparison FINDINGS: Epidural stimulator device is present. There are 2 leads present. One lead tip is at the T6-T7 level while another lead tip is at the T7-T8 level. There postsurgical changes of the lumbar and there is mild dextroscoliosis. There are degenerative changes in the thoracic spine with no acute fracture or dislocation apparent. The upper most T-spine is not included on the exam on the AP view. IMPRESSION: Epidural stimulator device present as described above. Dictated by: Mahamed Muir MD 12/09/2019 18:47 Electronically signed by Mahamed Muir MD in [place] 12/09/2019 18:47
--- NOTE | 2019-12-09 11:35 | P.OP_ITS ---
Date of procedure: 12/09/19 Pre-op Diagnosis:: Postlaminectomy syndrome of lumbar spine with lumbar radiculopathy symptoms and degenerative disc disease of lumbar spine Post-op Diagnosis:: Same Procedure performed:: Spinal cord stimulator trial with epidural lead placement x2 Surgeon:: Blake Garivn MD SAMPLE COLLECTOR:: Den Das Anesthesia: MAC Estimated blood loss (mL): 2 Clinical Note:: This patient is a pleasant 79-year-old white female who we have been treating for low back pain with lumbar radicular symptoms and postlaminectomy syndrome lumbar spine. She has had medial branch blocks and radiofrequency ablations of the facet joints without much long-term success. A lot of her pain is in her back with some pain down her legs. She is scheduled for spinal cord stimulator trial with DTM therapy today. Operative findings:: None Operative note:: Informed consent was obtained risk and benefits of the procedure was planed to the patient. Patient was taken to the procedure room. He was prepped using ChloraPrep. She was prepped and draped in sterile fashion. Skin and subcutaneous tissues were anesthetized using lidocaine. 17-gauge epidural needle was inserted and advanced into the L1-L2 interspace. Stimulating lead was inserted and advanced very easily to the T8-T9 vertebral bodies. Lead placement was checked in AP and lateral views. A second needle was then inserted and advanced into the L2-L3 interspace. A second stimulating lead was inserted and advanced again very easily to the T9-T10 vertebral body. Again lead placement was checked in AP and lateral views. The stylette and needles were removed. The leads were secured in place. The patient was taken to recovery in stable condition. Final x-rays were gotten while in recovery in the AP and lateral views. Patient was programmed by the [employer] authorization representative with DTM programming. She tolerated the procedure well with no complications. Patient was discharged home neurologically intact with good relief of pain symptoms. Plan and disposition: We will follow-up with this patient in 3 days for reprogramming. We will follow-up in 1 week for lead pull. If she has any problems or questions she is to call us back in the pain clinic. Condition: stable Disposition: PACU Complications:: None
== END 2019-12-09 13:30 | disposition home or self-care (01) ==
LOC: OR 08:31
PROVIDERS: PCP Internal Medicine Adolescent Medicine; Visit Provider Anesthesiology
PROC: (CPT 63650; principal; 2019-12-09 10:00)
DX: M96.1 Postlaminectomy syndrome, not elsewhere classified (principal); M51.16 Intervertebral disc disorders with radiculopathy, lumbar region; Z88.2 Allergy status to sulfonamides; E78.5 Hyperlipidemia, unspecified; I10 Essential (primary) hypertension; Z85.3 Personal history of malignant neoplasm of breast
CPT/HCPCS: 63650 ×2; 72100; 96374; C1897; J3370

== ENCOUNTER → 2019-12-15 08:53 | Outpatient (POV) | payer MEDICARE, OTHER, SELFPAY ==
[2019-12-15 09:08] VITALS: BP 124/63; PULSE 85; RESP 20; TEMP 36.6; O2SAT 96; BMI 23.6
--- NOTE | 2019-12-15 09:36 | P.PCN_ITS ---
- Procedure Date: 12/15/19 Time: 09:36 Anesthesiologist:: Stacie Zhao APRN Complications:: None Pre-procedure Diagnosis:: Postlaminectomy syndrome lumbar spine with lumbar radiculopathy symptoms of degenerative disc disease lumbar spine Post-procedure Diagnosis:: Same Indications for Procedure:: Patient is a very pleasant 79-year-old white female who presents today for follow-up and spinal cord stimulator trial lead removal. Patient got significant relief with her trial going between 50 and 80% relief of her symptomology. She is much more active and able to do activities of daily living. Her pain was decreased significantly. She would like to move forward to permanent implant of the neurostimulator with a Medtronic system. Physical Exam General: Alert and oriented x3, no acute distress, pleasant and cooperative, [on room air] Lungs: Resps E/U, Symmetrical chest expansion, Eyes: PERRL Musculoskeletal: Flexion and extension of lumbar spine somewhat guarded se condary to pain, deep tendon reflexes normal, strength in upper and lower extremities [5/5], slightly antalgic gait noted Neurological: speech clear, president and chief executive officer equal, no gross sensory deficits Procedure Details:: After informed consent was obtained the risk and benefits of the procedure were explained to the patient. Patient's vital signs were monitored with noninvasive blood pressure cuff and pulse oximeter. Patient's tape was removed on her back. The area in which her epidural leads entered was examined to ensure no redness or draining. Patient leads were then removed in sterile fashion. Patient then had Band-Aids placed over the puncture sites. Patient tolerated the procedure well. Plan and Disposition:: Overall patient is doing extremely well. We will move forward with a permanent Medtronic neurostimulator implant at the T8-T9 vertebral body levels and a second stimulating lead at T9-T10 vertebral body. Patient is not on any anticoagulation therapy. Dr. Garvin has reviewed this note and agrees with this plan of care. This note was dictated using voice recognition software and may contain errors or omissions
== END ==
PROVIDERS: PCP Internal Medicine Adolescent Medicine; Visit Provider Clinical Nurse Specialist Family Health
DX: M96.1 Postlaminectomy syndrome, not elsewhere classified (principal); M51.16 Intervertebral disc disorders with radiculopathy, lumbar region
CPT/HCPCS: 99212

== ENCOUNTER → 2020-01-14 09:07 | Outpatient (CLI) | payer MEDICARE, OTHER, SELFPAY ==
--- NOTE | 2020-01-14 09:14 | XR_ITS ---
PROCEDURE: XR KNEE LT 4V CLINICAL INDICATION: knee pain Knee pain COMPARISON: No exams were available for comparison FINDINGS: No fracture or dislocation. No lytic or blastic change. There is normal mineralization. Moderate osteoarthritic changes are present involving the medial compartment. Other findings:There are 3 calcific densities medial to the distal femur consistent with loose bodies along the medial aspect of the distal femur consistent with loose bodies. There are minimal osteoarthritic changes of the patellofemoral joint. Small suprapatellar effusion is noted. Vascular calcifications also noted. IMPRESSION: Osteoarthritis with knee joint effusion and loose bodies Dictated by: Mahamed Muir MD 01/14/2020 15:50 Electronically signed by Mahamed Muir MD in [place] 01/14/2020 15:50
== END ==
PROVIDERS: PCP Internal Medicine Adolescent Medicine; Visit Provider Orthopaedic Surgery
DX: M25.562 Pain in left knee (principal)
CPT/HCPCS: 73564

== ENCOUNTER 2020-02-10 11:00 | Outpatient (RCR) | payer MEDICARE, OTHER, SELFPAY ==
--- NOTE | 2020-01-19 10:23 | HMH.PTOPWND ---
Rehab Outpt Wound Evaluation Rehab OP Wound Evaluation Start: 01/19/20 09:55 Freq: Status: Active Protocol: Document 01/19/20 10:15 LORRI (Rec: 01/19/20 10:22 PHORKIRSTIN [id number]) Electronically Signed By Du Feliz, PT 01/19/20 10:15 Subjective/History History History Pt is 79 yowf who presents with c/o continued L UE edema and pain x ~ 1-2 yrs. She has pain due to chronic L RCT tear which has repsponed to cortisone injection in the past, but her most recent one did not help very much. She has edema due to hx of L side breast cancer with 3 lymph nodes removed and has developed lymphedema after surgery. The decreased mobility of the L UE due to RCT tear has increased the edema in her L UE due to post cancer surgery lymphedema. She also has hx of R TKA, L knee pain due to OA, and significant lumbar pain with hx of surgery and now a plan for implanted stimulator. Subjective Subjective Currently pain in the L shld is 3/10, at worst is 10/10. Lymphedema Eval Classification of Lymphedema Secondary Lymphedema Yes: L breast CA and surgery Stemmer's sign Stemmer's Sign no Stage of Lymphedema Lymphedema stages Stage I (Pitting edema, reduces w/ elevation, no fibrosis) Skin Changes Dry Skin Yes Other Changes Yes Pain Scale Pain Scale (0-10) 10 Affected Extremities Areas Affected by Lymphedema/Edema Left Upper Extremity,Left Breast,Left Axilla Manual Lymphatic Drainage Treatment Area MLD Treatment Area Left Upper Extremity,Left Breast,Left Axilla Wound Problems/Impairments Impairments Problems/Impairmments Palpation Tenderness,Impaired Range of Motion,Impaired Strength,Impaired Lifting, Impaired Recreational Activities,Increased Edema, Lymphedema Present,Subjective C/O Pain,Impaired Self Care/ Self Management
== END 2020-02-11 11:05 | disposition home or self-care (01) ==
LOC: PT 11:00
PROVIDERS: PCP Internal Medicine Adolescent Medicine; Visit Provider Orthopaedic Surgery
DX: I89.0 Lymphedema, not elsewhere classified (principal)
CPT/HCPCS: 97140; 97163

== ENCOUNTER → 2020-04-14 13:12 | Outpatient (POV) | payer MEDICARE, OTHER, SELFPAY ==
[2020-04-14 14:32] VITALS: BP 144/88; PULSE 72; RESP 16; TEMP 36.7; O2SAT 97; BMI 23.5
--- NOTE | 2020-04-14 14:54 | HMH.PAINSOAP ---
[facility] Pain Management SOAP Note Subjective:: Patient is a 80-year-old white female who presents today for follow-up. She has been treated for chronic low back pain with lumbar radiculopathy symptoms as well as postlaminectomy syndrome lumbar spine. Patient says that she was scheduled to undergo a spinal cord stimulator trial, however, she says she was stung by bee and was uncomfortable undergoing the trial after edema in her left arm from a bee sting. Patient says she also had time to discuss the stimulator with family friends and physicians who have advised her not to proceed with the spinal cord stimulator implant. She says that she would like to try TENS unit at the mentation of Dr. Golden. She is seeing Dr. Golden for a torn her cuff on the left side as well as left knee pain. Patient says she is getting injections in both her left shoulder and left knee by Dr. Golden. Patient would like us to order a TENS unit for her to see if this gives her relief in her low low back. Rates her pain a 5 out of 10 today. Review of Systems General: No recent weight changes, no fever, no sleep disturbances Respiratory: No cough, no shortness of air, no recurring pulmonary infections Cardiovascular/peripheral vascular: No chest pain, no palpitations, no edema, no shortness of breath Gastrointestinal: No new onset incontinence, normal bowel movements reported Genitourinary: No new onset incontinence Musculoskeletal: Low back pain Psychiatric: Normal mood/affect Neurological: [Denies weakness in extremities], [denies balance issues] Objective:: Physical exam General: Alert and oriented x3, no acute distress, pleasant and cooperative, [on room air] Lungs: Respirations even and unlabored, symmetrical chest expansion Eyes: PERRL Musculoskeletal: Flexion and extension of lumbar spine somewhat guarded secondary to pain, deep tendon reflexes normal, strength in upper and lower extremities [5/5], [abnormal gait noted] Neurological: Speech clear, 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 She does not want to proceed with the spinal cord stimulator implant. She is being seen by Dr. Golden for her left knee pain and her left shoulder pain. We will plan to see her back in the clinic in a month to reassess her symptoms after use of her TENS unit. Patient has been instructed to contact clinic if she has any concerns before her next appointment. The patient and I specifically discussed risk factors for COVID19. These risks include, but are not limited to age greater than 60, heart or lung disease, diabetes, immunosuppression, and travel. We also discussed NSAIDs may worsen COVID19 infection or symptoms. Patient should not use NSAIDs to treat COVID19 signs or symptoms. Patient was also informed that any type of corticosteroid of any form (oral or injection) will decrease the patient's immune system response and may increase the likelihood of COVID19 infection [address] symptoms[address] Garvin has reviewed this note and agrees with this plan of care. This note was dictated using voice recognition software and make contain errors or omissions. [facility] History I have reviewed the patient's past medical history: Yes Medical History: Reports:: Anxiety, Cancer, Depression, Hyperlipidemia Denies:: Diabetes Mellitus Type 1, Diabetes Mellitus Type 2, Internal Pacemaker, Lung Disease, MRSA, Seizures *Have you ever received a pneumonia vaccine?: Yes *Have you received a flu vaccine this season?: Yes Other Medical History: Reports: Arthritis, Radiation Therapy. Denies: Blood Transfusion Reaction Laterality Cases: Left: Breast Biopsy, Lumpectomy Other Surgeries: Yes: Hysterectomy-Total, Other. No: Pacemaker Amputation: No - *Social History Smoking Status: Never smoker
== END ==
PROVIDERS: PCP Internal Medicine Adolescent Medicine; Visit Provider Clinical Nurse Specialist Family Health
DX: M51.16 Intervertebral disc disorders with radiculopathy, lumbar region (principal); M96.1 Postlaminectomy syndrome, not elsewhere classified
CPT/HCPCS: 99212

== ENCOUNTER → 2020-06-02 09:30 | Outpatient (POV) | payer MEDICARE, OTHER, SELFPAY ==
[2020-06-02 09:36] VITALS: BP 125/85; PULSE 65; RESP 18; O2SAT 98; BMI 22.9
--- NOTE | 2020-06-02 10:05 | HMH.PAINSOAP ---
[facility] Pain Management SOAP Note Subjective:: Patient is a 80-year-old white female who presents today for follow-up. She has been treated for chronic low back pain with lumbar radiculopathy symptoms as well as postlaminectomy syndrome of her lumbar spine. Patient rates her pain a 0 out of 10 today. She says she is doing well overall with her low back pain. Most of her pain is primarily in her left knee. She says she is having difficulty walking and standing due to the pain in her knee. She does rate her pain to her low back 0 out of 10 and I 4 out of 10 to her left knee. She is scheduled to go surgical intervention to her left knee with Dr. Golden. She does not want to do any further injective therapy to her spine until she completes her surgery for her knee. Patient does continue with a home stretching program. She does use ice and heat therapies. Her granddaughter is purchasing the patient a TENS unit for her intermittent pain in her back. Review of Systems General: No recent weight changes, no fever, no sleep disturbances Respiratory: No cough, no shortness of air, no recurring pulmonary infections Cardiovascular/peripheral vascular: No chest pain, no palpitations, no edema, no shortness of breath Gastrointestinal: No new onset incontinence, normal bowel movements reported Genitourinary: No new onset incontinence Musculoskeletal: Intermittent low back pain, left knee pain Psychiatric: Normal mood/affect Neurological: [Denies weakness in extremities], [denies balance issues] Objective:: Physical exam General: Alert and oriented x3, no acute distress, pleasant and cooperative, [on room air] Lungs: Respirations even and unlabored, symmetrical chest expansion Eyes: PERRL Musculoskeletal: Flexion and extension of left lower extremity somewhat guarded secondary to pain, deep tendon reflexes normal, strength in upper and lower extremities [5/5], slightly antalgic gait noted Neurological: 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 She is not having any issues with her low back, however, most of her pain is in her left knee at this time. She is scheduled to undergo surgical procedure to her left knee with Dr. Golden. We will plan to follow-up with her after her surgery. We will schedule her for a 3-month follow-up. She has been instructed to contact the clinic if she has any concerns before her next appointment. The patient and I specifically discussed risk factors for COVID19. These risks include, but are not limited to age greater than 60, heart or lung disease, diabetes, immunosuppression, and travel. We also discussed NSAIDs may worsen COVID19 infection or symptoms. Patient should not use NSAIDs to treat COVID19 signs or symptoms. Patient was also informed that any type of corticosteroid of any form (oral or injection) will decrease the patient's immune system response and may increase the likelihood of COVID19 infection [address] symptoms[address] Garvin has reviewed this note and agrees with this plan of care. This note was dictated using voice recognition software and make contain errors or omissions. [facility] History I have reviewed the patient's past medical history: Yes Medical History: Reports:: Anxiety, Cancer, Depression, Hyperlipidemia Denies:: Diabetes Mellitus Type 1, Diabetes Mellitus Type 2, Internal Pacemaker, Lung Disease, MRSA, Seizures *Have you ever received a pneumonia vaccine?: Yes *Have you received a flu vaccine this season?: Yes Other Medical History: Reports: Arthritis, Radiation Therapy. Denies: Blood Transfusion Reaction Laterality Cases: Left: Breast Biopsy, Lumpectomy Other Surgeries: Yes: Hysterectomy-Total, Other. No: Pacemaker Amputation: No - *Social History Smoking Status:
== END ==
PROVIDERS: PCP Internal Medicine Adolescent Medicine; Visit Provider Clinical Nurse Specialist Family Health
DX: M51.16 Intervertebral disc disorders with radiculopathy, lumbar region (principal); M96.1 Postlaminectomy syndrome, not elsewhere classified; M25.562 Pain in left knee
CPT/HCPCS: 99212

== ENCOUNTER → 2020-06-06 14:09 | Outpatient (POV) | payer MEDICARE, OTHER, SELFPAY | PROVIDERS: Visit Provider Nurse Practitioner Family | DX: Z00.00 Encounter for general adult medical examination without abnormal findings (principal) ==

== ENCOUNTER 2020-08-17 10:00 | Outpatient (RCR) | payer MEDICARE, OTHER, SELFPAY | END 2020-08-17 11:00 | disposition home or self-care (01) | LOC: PT.CARL 10:00 | PROVIDERS: PCP Internal Medicine Adolescent Medicine; Visit Provider Orthopaedic Surgery Adult Reconstructive Orthopaedic Surgery | DX: M25.562 Pain in left knee (principal); Z96.652 Presence of left artificial knee joint | CPT/HCPCS: 97010; 97014; 97110; 97140; 97163; G0283 ==

== ENCOUNTER → 2020-10-28 09:08 | Outpatient (CLI) | payer MEDICARE, OTHER, SELFPAY ==
--- NOTE | 2020-10-28 09:13 | MM_ITS ---
PROCEDURE: MM DIG SCREENING MAMM BI W/CAD Digital Breast Tomosynthesis Included CLINICAL INDICATION: SCREENING COMPARISON: MG DXBI MM Dig mamm BI DX w/CAD from 10/22/2018 MG MM DIG MAMM DX UNILAT LT CAD from 04/28/2019 MG MM DIG MAMM BI DX W/CAD from 10/26/2019 TECHNIQUE: Standard CC and MLO images and 3D Tomosynthesis was obtained. R2 CAD reviewed. FINDINGS: The breasts are composed of heterogeneously dense tissue, may obscure small masses. Postsurgical changes are noted in the left upper outer quadrant. No interval change compared to prior study. Bilateral benign appearing calcifications are noted. No dominant mass lesion, suspicious calcification or architectural distortion is noted. Glandular asymmetries are noted bilaterally, demonstrate no significant interval change compared to prior study. IMPRESSION: Postsurgical changes in the left upper outer quadrant. No interval change. BI-RAD Category: 2 Benign Finding(s) FOLLOW-UP: 1YR 1 Year Follow-up (A letter has been sent to the patient regarding results of the study.) Dictated by: Sherie Vora 11/03/2020 18:21 Sherie Vora in [place] 11/03/2020 18:21
== END ==
PROVIDERS: PCP Internal Medicine Adolescent Medicine; Visit Provider Internal Medicine Adolescent Medicine
DX: Z12.31 Encounter for screening mammogram for malignant neoplasm of breast (principal)
CPT/HCPCS: 77063; 77067

== ENCOUNTER → 2020-11-10 12:58 | Outpatient (CLI) | payer MEDICARE, OTHER, SELFPAY ==
--- NOTE | 2020-11-10 13:02 | XR_ITS ---
PROCEDURE: XR DEXA AXIAL SKELETON CLINICAL HISTORY: POST MENOPAUSAL COMPARISON: No exams were available for comparison FINDINGS: The right hip BMD is 0.660 with a T-score of -1.7. The left hip BMD is 0.688 with a T-score of -1.5. The left forearm BMD is 0.664 with a T-score of -0.5. IMPRESSION: This patient is considered osteopenic according to the World Health Organization criteria. Bone density is between 10 and 25 percent below young normal. Fracture risk is moderate. Treatment is advised. Based on these results a follow-up exam is recommended in 2 year. Dictated by: Mahamed Muir MD 11/10/2020 23:18 Mahamed Muir MD in [place] 11/11/2020 10:18
== END ==
PROVIDERS: PCP Internal Medicine Adolescent Medicine; Visit Provider Internal Medicine Adolescent Medicine
DX: Z78.0 Asymptomatic menopausal state (principal); M85.89 Other specified disorders of bone density and structure, multiple sites; E55.9 Vitamin D deficiency, unspecified
CPT/HCPCS: 77080

== ENCOUNTER → 2021-04-11 20:59 | Outpatient (CLI) | payer MEDICARE, OTHER, SELFPAY ==
[2021-04-11 21:11] LABS: Basophils % 0.7 % (0.1-2.0); Eosinophils # 0.2 K/mm3 (0.0-0.4); Eosinophils % 2.9 % (0.1-12.0); Hematocrit 40.5 % (37.0-47.0); Hemoglobin 12.9 g/dL (12.2-16.2); Lymphocytes # 0.8 K/mm3 (0.7-4.5); Lymphocytes % 15.2 % (10-50); Mean Corpuscular HGB Conc 31.9 g/dL (31.8-35.4); Mean Corpuscular Volume 100.2 fl (81-99); Mean Platelet Volume 10.9 fl (7.4-10.4); Monocytes # 0.4 K/mm3 (0.1-1.0); Monocytes % 6.5 % (1.7-9.3); Neutrophils % 74.6 % (37.0-80.0); Platelet Count 271 K/mm3 (142-424); Red Blood Count 4.05 M/mm3 (4.20-5.40); Red Cell Distribution Width 12.9 % (11.5-17.5); White Blood Count 5.4 K/mm3 (4.8-10.8)
[2021-04-11 21:29] LABS: Alanine Aminotransferase 26 U/L (12-78); Albumin/Globulin Ratio 1.5 (1.1-1.8); Alkaline Phosphatase 60 U/L (38-126); Anion Gap 13.2 mEq/L (5-15); Aspartate Amino Transferase 34 U/L (14-36); Bilirubin,Total 0.5 mg/dl (0.2-1.3); Blood Urea Nitrogen 17 mg/dl (7-17); Calcium 9.2 mg/dl (8.4-10.2); Carbon Dioxide 27 mmol/L (22.0-30.0); Chloride 106 mmol/L (98-107); Cholesterol 154 mg/dl (140-200); Estimated Glomerular Filt Rate 53 ml/min (>60); GFR (African American) 65 ML/MIN (>60); Globulin 2.7 g/dL (1.3-3.2); Glucose 96 mg/dl (74-100); HDL Cholesterol 52 mg/dl (40-60); Potassium 5.2 mmoL/L (3.5-5.1); Sodium 141 mmol/L (136-145); Total Protein,Serum 6.7 g/dl (6.3-8.2); Triglycerides 137 mg/dl (30-150); VLDL Cholesterol 27 mg/dL (0-40)
[2021-04-11 21:46] LABS: 25-OH Vitamin D, Total 80.7 ng/mL (30-100)
[2021-04-11 23:02] LABS: Ferritin 133 ng/ml (11.1-264)
== END ==
PROVIDERS: Visit Provider Internal Medicine Adolescent Medicine
DX: E78.5 Hyperlipidemia, unspecified (principal); E55.9 Vitamin D deficiency, unspecified; Z86.39 Personal history of other endocrine, nutritional and metabolic disease
CPT/HCPCS: 80053; 80061; 82306; 82728; 85025

== ENCOUNTER → 2021-08-16 13:50 | Outpatient (CLI) | payer MEDICARE, OTHER, SELFPAY ==
--- NOTE | 2021-08-16 13:56 | MM_ITS ---
PROCEDURE INFORMATION: Exam: US Left Breast, Complete MG Left Diagnostic Breast Tomosynthesis Exam date and time: 08/16/2021 1:56 PM Age: 81 years old Clinical indication: Lt breast lumpectomy breast CA with radiation x 20 yrs; Diffuse left breast pain for 1 week, HX of left breast cancer . Mastodynia TECHNIQUE: Imaging protocol: Complete ultrasound of all four quadrants of the Left breast and the retroareolar regions, including ultrasound of the axilla when performed. Left Diagnostic tomosynthesis and 2D mammography including computer-aided detection (CAD) when performed. Unilateral or bilateral exam. COMPARISON: 1. MG MM DIG SCREENING MAMM BI W/CAD 10/28/2020 9:24 AM 2. MG MM DIG MAMM BI DX W/CAD 10/26/2019 1:48 PM FINDINGS: MAMMOGRAPHY: The breast tissue is heterogeneously dense, which may obscure small masses. There is no stellate mass, suspicious architectural distortion or suspicious to suggest malignancy. Stable post operative architectural distortion in the left axillary tail the due to prior lumpectomy for carcinoma. No skin thickening or axillary adenopathy. ULTRASOUND: Sonographic images of the left breast including the retroareolar region, all 4 quadrants and the axilla were obtained Sonographic images of the left 1 o'clock axis demonstrates postoperative scarring due to prior lumpectomy. There are increased echoes coursing through the center of the scar consistent with benign trapped benign fat and/or fibrosis. No suspicious architectural distortion. No suspicious solid or cystic masses are seen. It should be noted that some of the sonographic images are mislabeled, in that, images were obtained in the LEFT breast. IMPRESSION: No mammographic or sonographic evidence of malignancy. Annual screening right mammogram is recommended in October 2021 unless otherwise clinically indicated. ASSESSMENT: BI-RADS Category 2: Benign
== END ==
PROVIDERS: PCP Internal Medicine Adolescent Medicine; Visit Provider Nurse Practitioner Family
DX: N64.4 Mastodynia (principal)
CPT/HCPCS: 76641; 77061; 77065; G0279

== ENCOUNTER → 2021-10-30 08:19 | Outpatient (CLI) | payer MEDICARE, OTHER, SELFPAY ==
--- NOTE | 2021-10-30 08:44 | MM_ITS ---
PROCEDURE INFORMATION: Exam: MG Bilateral Screening 3D Mammography Exam date and time: 10/30/2021 8:40 AM Age: 81 years old Clinical indication: Screening. Personal history of left breast cancer, status post lumpectomy and radiation 20 years ago. TECHNIQUE: Imaging protocol: Bilateral Screening tomosynthesis and 2D mammography including computer-aided detection (CAD) when performed. COMPARISON: 1. MG MM DIG MAMM DX UNILAT LT CAD 08/16/2021 1:54 PM 2. MG MM DIG SCREENING MAMM BI W/CAD 10/28/2020 9:24 AM 3. MG MM DIG MAMM BI DX W/CAD 10/26/2019 1:48 PM 4. MG MM DIG MAMM DX UNILAT LT CAD 04/28/2019 1:21 PM FINDINGS: MAMMOGRAPHY: Breast composition: The breast tissue is heterogeneously dense, which may obscure small masses. Mass: None. Architectural distortion: Stable postoperative architectural distortion in the left axillary tail, with history of prior lumpectomy for carcinoma. Calcifications: No suspicious calcifications. Asymmetric density: None. Skin thickening: None. Axillary adenopathy: None. IMPRESSION: No mammographic evidence of malignancy. Annual screening is recommended unless otherwise clinically indicated. ASSESSMENT: BI-RADS Category 2: Benign
== END ==
PROVIDERS: PCP Internal Medicine Adolescent Medicine; Visit Provider Internal Medicine Adolescent Medicine
DX: Z12.31 Encounter for screening mammogram for malignant neoplasm of breast (principal)
CPT/HCPCS: 77063; 77067

== ENCOUNTER → 2021-12-26 13:14 | Outpatient (CLI) | payer MEDICARE, OTHER, SELFPAY ==
--- NOTE | 2021-12-26 13:17 | US_ITS ---
FINAL REPORT TECHNIQUE: Sonographic images were obtained of the left neck at the area of interest. CLINICAL HISTORY: LUMP ON NECK ATTENTION LT POSTERIOR CHAIN COMPARISON: None FINDINGS: There is no mass or fluid collection at the area of abnormality. Soft tissues are normal. IMPRESSION: No ultrasound abnormality at the area of interest. Reviewed, Interpreted and Dictated by Batool Freitas MD Transcribed by Arin Drake Authenticated by Batool Freitas MD on 12/26/2021 03:15:24 PM [facility]
== END ==
PROVIDERS: PCP Internal Medicine Adolescent Medicine; Visit Provider Nurse Practitioner Family
DX: R22.1 Localized swelling, mass and lump, neck (principal)
CPT/HCPCS: 76536

== ENCOUNTER → 2022-02-23 12:56 | Outpatient (CLI) | payer MEDICARE, OTHER, SELFPAY ==
--- NOTE | 2022-02-23 12:59 | XR_ITS ---
FINAL REPORT CLINICAL HISTORY: low back pain with left sciatica FINDINGS: LEFT HIP Two views including an AP pelvis demonstrate no acute fracture. There is no dislocation. There is mild degenerative change of both hips. The soft tissues are unremarkable. IMPRESSION: Mild degenerative change of both hips with no acute bony abnormality. Reviewed, Interpreted and Dictated by Cory Truner III, MD Transcribed by Arin Drake Authenticated and [facility]
--- NOTE | 2022-02-23 12:59 | XR_ITS ---
FINAL REPORT CLINICAL HISTORY: low back pain with left sciatica FINDINGS: LUMBAR SPINE Two views were obtained. There is fusion at L3, 4 and 5. There is no acute fracture. There is no malalignment. There is moderate and severe degenerative change with disc space narrowing and osteophytes. There is multilevel vacuum disc phenomenon. There are vascular calcifications. IMPRESSION: Degenerative change as described. Reviewed, Interpreted and Dictated by Cory Turner III, MD Transcribed by Arin Drake Authenticated and [facility]
== END ==
PROVIDERS: PCP Internal Medicine Adolescent Medicine; Visit Provider Family Medicine
DX: M54.30 Sciatica, unspecified side (principal); M54.50 Low back pain, unspecified
CPT/HCPCS: 72100; 73502

== ENCOUNTER → 2022-05-10 10:30 | Outpatient (CLI) | payer MEDICARE, OTHER, SELFPAY ==
[2022-05-10 18:22] LABS: MANUAL DIFFERENTIAL MANUAL DIFFERENTIAL (MANUAL DIFF)
[2022-05-10 18:35] LABS: Alanine Aminotransferase 21 U/L (12-78); Albumin Level 4.1 g/dl (3.5-5.0); Albumin/Globulin Ratio 1.7 (1.1-1.8); Alkaline Phosphatase 86 U/L (38-126); Anion Gap 15.9 mEq/L (5-15); Aspartate Amino Transferase 36 U/L (14-36); Bilirubin,Total 0.2 mg/dl (0.2-1.3); Blood Urea Nitrogen 19 mg/dl (7-17); Calcium 9.1 mg/dl (8.4-10.2); Carbon Dioxide 29 mmol/L (22.0-30.0); Chloride 101 mmol/L (98-107); Chol/HDL Ratio 2.7 (1-3.5); Cholesterol 155 mg/dl (140-200); Estimated Glomerular Filt Rate 53 ml/min (>60); GFR (African American) 65 ML/MIN (>60); Globulin 2.4 g/dL (1.3-3.2); Glucose 99 mg/dl (74-100); HDL Cholesterol 57 mg/dl (40-60); Potassium 4.9 mmoL/L (3.5-5.1); Sodium 141 mmol/L (136-145); Total Protein,Serum 6.5 g/dl (6.3-8.2); Triglycerides 127 mg/dl (30-150); VLDL Cholesterol 25 mg/dL (0-40)
[2022-05-10 18:36] LABS: Basophils # 0.1 K/mm3 (0-0.2); Basophils % 1.2 % (0.1-2.0); Eosinophils # 0.2 K/mm3 (0.0-0.4); Hematocrit 41.4 % (37.0-47.0); Hemoglobin 13.2 g/dL (12.2-16.2); Lymphocytes # 0.9 K/mm3 (0.7-4.5); Lymphocytes % 16.2 % (10-50); Mean Corpuscular HGB Conc 31.8 g/dL (31.8-35.4); Mean Corpuscular Hemoglobin 31.6 pg (27.0-31.2); Mean Corpuscular Volume 99.5 fl (81-99); Mean Platelet Volume 10.1 fl (7.4-10.4); Monocytes # 0.4 K/mm3 (0.1-1.0); Monocytes % 7.4 % (1.7-9.3); Neutrophils # 3.8 K/mm3 (1.8-7.8); Neutrophils % 71.2 % (37.0-80.0); Platelet Count 285 K/mm3 (142-424); Red Blood Count 4.16 M/mm3 (4.20-5.40); Red Cell Distribution Width 13.1 % (11.5-17.5); White Blood Count 5.3 K/mm3 (4.8-10.8)
[2022-05-10 18:46] LABS: Direct LDL Cholesterol 68.67 mg/dL (100-129)
[2022-05-10 19:22] LABS: Hypochromasia 1+; Lymphocytes % 17 % (10-50); Monocytes % 6 % (2-9); Neutrophils % 77 % (42-76); Platelet Estimate Normal; Total Cells Counted 100
[2022-05-18 20:28] LABS: 1,25 Dihydroxy Vitamin D 37 pg/mL (.); 1,25-Dihydroxy, Vitamin D-2 <10 pg/mL (.); 1,25-Dihydroxy, Vitamin D-3 35 pg/mL (.)
== END ==
PROVIDERS: PCP Nurse Practitioner Family; Visit Provider Nurse Practitioner Family
DX: D64.9 Anemia, unspecified (principal); E78.5 Hyperlipidemia, unspecified
CPT/HCPCS: 80053; 80061; 82652; 85007; 85014; 85018; 85048; 85049

== ENCOUNTER → 2022-05-21 11:13 | Outpatient (CLI) | payer MEDICARE, OTHER, SELFPAY ==
--- NOTE | 2022-05-21 11:17 | XR_ITS ---
FINAL REPORT CLINICAL HISTORY: Right foot pain FINDINGS: RIGHT FOOT Three views of the right foot demonstrate no acute fracture or dislocation. The visualized joint spaces are normally aligned. There are mild degenerative changes. There is a mild hallux valgus deformity. There is a calcification adjacent to the proximal 5th metatarsal uncertain age in may represent sequela of prior injury. There is a small posterior calcaneal spur. IMPRESSION: Degenerative change with no definite acute bony abnormality. Calcification adjacent to the proximal 5th metatarsal of uncertain age, may represent sequela of prior injury. Reviewed, Interpreted and Dictated by Cory Turner III, MD Transcribed by Arin Drake Authenticated and [facility]
--- NOTE | 2022-05-21 11:17 | XR_ITS ---
FINAL REPORT CLINICAL HISTORY: Left foot pain FINDINGS: LEFT FOOT Three views of the left foot demonstrate no acute fracture or dislocation. The visualized joint spaces are normally aligned. There are mild degenerative changes. There is a mild hallux valgus deformity. There is a calcification adjacent to the proximal 5th metatarsal uncertain age in may represent sequela of prior injury. IMPRESSION: Degenerative change with no definite acute bony abnormality. Calcification adjacent to the proximal 5th metatarsal of uncertain age, may represent sequela of prior injury. Reviewed, Interpreted and Dictated by Cory Turner III, MD Transcribed by Arin Drake Authenticated and . [facility]
== END ==
PROVIDERS: PCP Family Medicine; Visit Provider Nurse Practitioner Family
DX: B35.1 Tinea unguium (principal)
CPT/HCPCS: 73630; 87102; 87206; 87220

== ENCOUNTER → 2022-08-27 08:18 | Outpatient (CLI) | payer MEDICARE, OTHER, SELFPAY ==
--- NOTE | 2022-08-27 08:20 | US_ITS ---
FINAL REPORT CLINICAL HISTORY: DECREASED PULSES,CLAUDICATION AND REST PAIN,HLD,HX LT BREAST CA FINDINGS: ANKLE-BRACHIAL PRESSURE INDICES Pressure indices are as follows: RIGHT LOWER EXTREMITY: Ankle-brachial pressure index: 1.02 Comments: Normal LEFT LOWER EXTREMITY: Ankle-brachial pressure index: 1.12 Comments: Normal IMPRESSION: No evidence of significant obstructive peripheral vascular disease of the lower extremities Reviewed, Interpreted and Dictated by Batool Freitas MD Transcribed by Laisha Jean Baptiste Authenticated and [facility]
== END ==
PROVIDERS: PCP Family Medicine; Visit Provider Family Medicine
DX: R09.89 Other specified symptoms and signs involving the circulatory and respiratory systems (principal)
CPT/HCPCS: 93923

== ENCOUNTER 2022-08-28 14:00 | Outpatient (RCR) | payer MEDICARE, OTHER, SELFPAY | END 2022-09-20 14:45 | disposition home or self-care (01) | LOC: PT 14:00 | PROVIDERS: PCP Family Medicine; Visit Provider Physician Assistant Surgical | DX: M51.36 Other intervertebral disc degeneration, lumbar region (principal); M19.90 Unspecified osteoarthritis, unspecified site; M54.32 Sciatica, left side | CPT/HCPCS: 97010; 97014; 97110; 97140; 97163; G0283 ==

== ENCOUNTER → 2022-11-01 10:49 | Outpatient (CLI) | payer MEDICARE, OTHER, SELFPAY ==
--- NOTE | 2022-11-01 10:49 | MM_ITS ---
PROCEDURE INFORMATION: Exam: MG Bilateral Screening 3D Mammography Exam date and time: 11/01/2022 11:06 AM Age: 82 years old Clinical indication: Screening. Personal history of left breast cancer, status post lumpectomy and radiation. TECHNIQUE: Imaging protocol: Bilateral Screening tomosynthesis and 2D mammography including computer-aided detection (CAD) when performed. COMPARISON: 1. MG MM DIG SCREENING MAMM BI W/CAD 10/30/2021 8:40 AM 2. MG MM DIG MAMM DX UNILAT LT CAD 08/16/2021 1:54 PM 3. MG MM DIG SCREENING MAMM BI W/CAD 10/28/2020 9:24 AM 4. MG MM DIG MAMM BI DX W/CAD 10/26/2019 1:48 PM FINDINGS: MAMMOGRAPHY: Breast composition: The breasts are heterogeneously dense, which may obscure small masses. Mass: None. Architectural distortion: Stable postoperative architectural distortion and surgical clips in the left axillary tail with history of left lumpectomy. Calcifications: No suspicious calcifications. Asymmetric density: None. Skin thickening: None. Axillary adenopathy: None. IMPRESSION: No mammographic evidence of malignancy. Annual screening is recommended unless otherwise clinically indicated. ASSESSMENT: BI-RADS Category 2: Benign
== END ==
PROVIDERS: PCP Family Medicine; Visit Provider Family Medicine
DX: Z12.31 Encounter for screening mammogram for malignant neoplasm of breast (principal)
CPT/HCPCS: 77063; 77067

== ENCOUNTER 2022-11-24 10:00 | Emergency (ER) | payer MEDICARE, OTHER, SELFPAY ==
[2022-11-24] VITALS (7 sets, daily range): BP systolic 111–174; BP diastolic 62–106; PULSE 76–85; RESP 16–18; TEMP 36.7; O2SAT 92–98; BMI 23.7
--- NOTE | 2022-11-24 10:21 | HMH.EDBACK ---
Discharge Plan Disposition Patient Disposition: Home, Self-Care Condition: Fair Prescriptions Prescriptions: New baclofen 5 mg tablet 5 mg PO Q8H PRN (Reason: pain) Qty: 20 0RF hydromorphone [Dilaudid] 2 mg tablet 2 mg PO Q6H PRN (Reason: pain) Qty: 10 0RF No Action gabapentin 300 mg capsule 300 mg PO TID Metamucil 3.4 gram/5.4 gram powder 1 tbsp PO DAILY Rx Instructions: mix into at least 8 oz of water or juice before administering diclofenac sodium 1 % gel 4 g topical QID PRN (Reason: pain ) 30 Days Qty: 100 2RF Rx Instructions: apply to single, ankle, foot; for foot includes sole/toes/top of foot. Apply to feet if you can not take oral NSAID Complete Multivitamin tablet 1 tab PO DAILY melatonin 5 mg capsule 5 mg PO ONCE atorvastatin 80 mg tablet 80 mg PO DAILY bupropion HCl 150 mg tablet sustained-release 12 hr 150 mg PO DAILY alendronate 70 mg tablet 70 mg PO WEEKLY 30 Days Qty: 5 3RF duloxetine 60 mg capsule,delayed release(DR/EC) 60 mg PO DAILY 90 Days Qty: 90 0RF calcium carbonate 600 MG tablet 600 mg PO DAILY omega-3 fatty acids 300 MG capsule 300 mg PO DAILY polyethylene glycol 3350 17 GM powder in packet 17 gm PO DAILY aspirin 81 MG tablet,delayed release (DR/EC) 1 mg PO DAILY Referrals Follow up/Referrals: Pool Brown MD [Primary Care Provider] - See instructions Activity Restrictions/Add. Instructions Additional Instructions/Restrictions: Please keep all follow-up appointments as scheduled. Follow-up with your primary care doctor if your pain continues. Return to the emergency department immediately if you feel worse in any way. Clinical Impressions Clinical Impression: Back pain with sciatica Instructions Patient Instructions: DI for Back Pain With Sciatica Discharge ED Provider: Lesli Reyes Back Pain HPI General Chief Complaint: PAIN Stated Complaint: Back pain going into left leg Time Seen by Provider: 11/24/22 10:21 Mode of Arrival: Family Vehicle Source of Information: Patient History of Present Illness HPI Narrative: The patient presents to the emergency department complaining of low back pain radiating to the left lower extremity. She has a known history of chronic back pain. She had surgery several years ago. Over the last 2 months she has had worsening pain. She already had a CT of the back approximately 1-1/2 months ago. She has not had any trauma. She states that the pain feels the same as it did before surgery except that it is now on the left side and before surgery it was on the right side. She complains of intermittent paresthesias in the left leg. She denies any urinary incontinence or retention. Related Data Home Medications Medication Instructions Recorded Confirmed calcium carbonate 600 mg calcium 600 mg PO DAILY Supplement 02/20/18 11/19/22 (1,500 mg) tablet omega-3 fatty acids 300 mg capsule 300 mg PO DAILY Cholesterol 02/20/18 11/19/22 melatonin 5 mg capsule 5 mg PO ONCE sleep 11/17/18 11/19/22 multivitamin,gk-enet-pzmkhwvs 1 tab PO DAILY Supplement 11/17/18 11/19/22 (Complete Multivitamin tablet) polyethylene glycol 3350 17 gram 17 gm PO DAILY constipation 03/01/19 11/19/22 oral powder packet aspirin 81 mg tablet,delayed 1 mg PO DAILY Blood thinner 09/23/19 11/19/22 release gabapentin 300 mg capsule 300 mg PO TID Pain 02/08/22 11/19/22 psyllium husk 3.4 gram/5.4 gram 1 tbsp PO DAILY 02/08/22 11/19/22 oral powder (Metamucil) atorvastatin 80 mg tablet 80 mg PO DAILY 05/10/22 11/19/22 bupropion HCl 150 mg tablet,12 hr 150 mg PO DAILY 11/19/22 11/19/22 sustained-release Previous Rx's Medication Instructions Recorded diclofenac sodium 1 % topical gel 4 g topical QID PRN pain 30 days 05/22/22 #100 grams alendronate 70 mg tablet 70 mg PO WEEKLY 30 days #5 tabs 10/15/22 duloxetine 60 mg capsule,delayed 60 mg PO DAILY Art
--- NOTE | 2022-11-24 11:14 | PC.NURSE ---
rounded on patient; call light within reach
--- NOTE | 2022-11-24 11:20 | PC.NURSE ---
notified ER MD pt reports pain not improving.
--- NOTE | 2022-11-24 11:59 | PC.NURSE ---
MD notified of pt's pain unchanged. verbal order given to give Baclofen 5mg. pt given warm blanket and pillow.
--- NOTE | 2022-11-24 12:02 | PC.NURSE ---
pharmacy called for Baclofen. MD at bedside talking with patient.
== END 2022-11-24 12:23 | disposition home or self-care (01) ==
PROVIDERS: Emergency Provider Emergency Medicine; PCP Family Medicine
DX: M54.42 Lumbago with sciatica, left side (principal)
CPT/HCPCS: 96372; 99283; 99284

== ENCOUNTER 2022-11-25 10:26 | Observation (INO) | payer MEDICARE, OTHER, SELFPAY ==
[2022-11-25] VITALS (16 sets, daily range): BP systolic 124–177; BP diastolic 62–91; PULSE 67–86; RESP 14–18; TEMP 36.6–36.7; O2SAT 83–99; BMI 24.0; BMI 22.6
--- NOTE | 2022-11-25 10:29 | HMH.EDBACK ---
Discharge Plan Disposition Patient Disposition: Admitted as Observation Chief Complaint: Back Pain/Injury Clinical Impressions Clinical Impression: Sciatica associated with disorder of lumbar spine Discharge ED Provider: Lesli Reyes Back Pain [facility] General Chief Complaint: Back Pain/Injury Stated Complaint: back pain Time Seen by Provider: 11/25/22 10:27 Mode of Arrival: EMS Source of Information: Patient and EMS History of Present Illness HPI Narrative: The patient presents to the emergency department via ambulance today. She was seen by me yesterday for acute exacerbation of chronic back pain. She was discharged with a prescription for Dilaudid and baclofen. Her last Dilaudid dose was about 1 AM last night. She states that the pain has not improved. She has no neurological symptoms. Related Data Home Medications Medication Instructions Recorded Confirmed calcium carbonate 600 mg calcium 600 mg PO DAILY Supplement 02/20/18 11/19/22 (1,500 mg) tablet omega-3 fatty acids 300 mg capsule 300 mg PO DAILY Cholesterol 02/20/18 11/19/22 melatonin 5 mg capsule 5 mg PO ONCE sleep 11/17/18 11/19/22 multivitamin,tb-hcru-vgtlaqwh 1 tab PO DAILY Supplement 11/17/18 11/19/22 (Complete Multivitamin tablet) polyethylene glycol 3350 17 gram 17 gm PO DAILY constipation 03/01/19 11/19/22 oral powder packet aspirin 81 mg tablet,delayed 1 mg PO DAILY Blood thinner 09/23/19 11/19/22 release gabapentin 300 mg capsule 300 mg PO TID Pain 02/08/22 11/19/22 psyllium husk 3.4 gram/5.4 gram 1 tbsp PO DAILY 02/08/22 11/19/22 oral powder (Metamucil) atorvastatin 80 mg tablet 80 mg PO DAILY Cholesterol 05/10/22 11/19/22 bupropion HCl 150 mg tablet,12 hr 150 mg PO DAILY mood 11/19/22 11/19/22 sustained-release alendronate 70 mg tablet 70 mg PO WEEKLY bones 11/25/22 Previous Rx's Medication Instructions Recorded diclofenac sodium 1 % topical gel 4 g topical QID PRN pain 30 days 05/22/22 #100 grams duloxetine 60 mg capsule,delayed 60 mg PO DAILY Arthritis 90 days 10/22/22 release #90 caps baclofen 5 mg tablet 5 mg PO Q8H PRN pain #20 tabs 11/24/22 hydromorphone 2 mg tablet 2 mg PO Q6H PRN pain #10 tabs 11/24/22 (Dilaudid) Allergies Allergy/AdvReac Type Severity Reaction Status Date / Time Sulfa (Sulfonamide Allergy Unknown Verified 11/19/22 13:45 Antibiotics) [facility] Disclaimer: The information contained in this section may have been updated after the patient was seen, as this information can be updated by other users. Medical History Allergy to sulfa drugs Anemia Anxiety Arthritis Cancer Depression Facet arthropathy Facet arthropathy, lumbar Hyperlipidemia Irregular heart rhythm Labile hypertension Lingular pneumonia Low back pain Pain around toenail, left foot Sciatic leg pain Surgical History H/O breast biopsy H/O lumpectomy History of cataract surgery History of cholecystectomy History of hysterectomy History of left knee replacement History of lumpectomy of left breast History of right knee joint replacement Previous back surgery Family History Other Cancer Coronary artery disease Diabetes Heart attack Tuberculosis Social History Smoking Status: Never smoker second hand exposure: No alcohol intake: never substance use type: denies use current occupational status: other Travel in the last 8 weeks: None household members: none housing: house current occupational exposures/hazards: No caffeine: No ROS Obtained: Yes All systems reviewed & no additional complaints except as documented Physical Exam General General appearance: alert Head Head exam: atraumatic Eye Eye exam: Present normal appearance ENT ENT exam: Present normal
--- NOTE | 2022-11-25 10:42 | PC.NURSE ---
Allergy and fall bracelet placed on patient
--- NOTE | 2022-11-25 10:52 | PC.NURSE ---
pt o2 sat dropped to 83% after medication administration. nasal cannula applied, pt's pulse ox changed over to sticky pulse ox, pt's hand wrapped in warm blanket. pt oxygen 97% oxygen removed. pt alert and oriented. family at bedside, call light with in reach.
--- NOTE | 2022-11-25 11:25 | XR_ITS ---
PROCEDURE INFORMATION: Exam: XR Chest Exam date and time: 11/25/2022 11:45 AM Age: 82 years old Clinical indication: Other: Vomitted foreign body last night; Additional info: Family request; PT spit up foreign body last night TECHNIQUE: Imaging protocol: Radiologic exam of the chest. Views: 1 view. COMPARISON: CR Chest 03/01/2019 8:19 AM FINDINGS: Tubes, catheters and devices: Surgical clips project over the left breast. Lungs: Calcified granuloma in the mid left lung. No focal airspace consolidation. Pleural spaces: Unremarkable. No pleural effusion. No pneumothorax. Heart/Mediastinum: Unremarkable. No cardiomegaly. Bones/joints: Unremarkable. IMPRESSION: No acute cardiopulmonary abnormality. No radiopaque foreign bodies are seen.
--- NOTE | 2022-11-25 11:26 | PC.NURSE ---
pt's daughter came up and spoke with myself and Trace Gibbons RN regarding request for chest xray. per report pt spit up what she thought could've been blood last night but daughter states possible ham. daughter states pt has been dealing with the loss of her oldest daughter and has stated that her pain is t/o entire body. Spoke with MD regarding request, chest xray ordered. pt does state Dilaudid has helped her pain. pt resting upon entering room.
--- NOTE | 2022-11-25 11:55 | PC.NURSE ---
pt ws able to get up and stand on the side of bed with assistance. pt c/o pain under left buttock, visual assessment performed no break down or skin issues noted. palpated and asked if pt was having pain and pt then denied. pt sat back on the side of the bed and had a vomiting episode. MD asked for Zofran, pt given 4mg Zofran IV. pt given crackers and Kasie Mist d/t stating she had not ate this am.
--- NOTE | 2022-11-25 12:05 | PC.NURSE ---
MD notified family would like to speak with him.
--- NOTE | 2022-11-25 12:14 | PC.NURSE ---
MD at bedside speaking with pt and family.
--- NOTE | 2022-11-25 12:45 | PC.NURSE ---
family states pt is having a charley horse and requesting potassium check.
--- NOTE | 2022-11-25 12:46 | PC.NURSE ---
spoke with MD regarding lab work. orders entered at this time.
--- NOTE | 2022-11-25 12:50 | PC.NURSE ---
NOTIFIED LAB STAFF OF NEW ORDERS ON PT, SPOKE WITH JANN
[2022-11-25 12:55] LABS: Chloride 101 mmol/L (98-107); Potassium 4.3 mmoL/L (3.5-5.1); Sodium 137 mmol/L (136-145)
[2022-11-25 12:57] LABS: Blood Urea Nitrogen 16 mg/dl (7-17); Creatinine Clearance Estimated 51 mL/min (50-200); Estimated Glomerular Filt Rate 69 ml/min (>60); GFR (African American) 84 ML/MIN (>60)
[2022-11-25 12:58] LABS: Alanine Aminotransferase 58 U/L (12-78); Albumin Level 4.6 g/dl (3.5-5.0); Albumin/Globulin Ratio 1.5 (1.1-1.8); Alkaline Phosphatase 77 U/L (38-126); Anion Gap 11.3 mEq/L (5-15); Aspartate Amino Transferase 69 U/L (14-36); Basophils % 0.4 % (0.1-2.0); Bilirubin,Total 0.8 mg/dl (0.2-1.3); Carbon Dioxide 29 mmol/L (22.0-30.0); Eosinophils # 0.1 K/mm3 (0.0-0.4); Eosinophils % 1.6 % (0.1-12.0); Globulin 3.1 g/dL (1.3-3.2); Hemoglobin 13.3 g/dL (12.2-16.2); Lymphocytes # 1.3 K/mm3 (0.7-4.5); Lymphocytes % 18.2 % (10-50); Mean Corpuscular HGB Conc 31.7 g/dL (31.8-35.4); Mean Corpuscular Volume 97.9 fl (81-99); Monocytes # 0.5 K/mm3 (0.1-1.0); Monocytes % 7.3 % (1.7-9.3); Neutrophils # 5.1 K/mm3 (1.8-7.8); Neutrophils % 72.6 % (37.0-80.0); Platelet Count 310 K/mm3 (142-424); Red Blood Count 4.29 M/mm3 (4.20-5.40); Red Cell Distribution Width 12.4 % (11.5-17.5); Total Protein,Serum 7.7 g/dl (6.3-8.2); White Blood Count 7.1 K/mm3 (4.8-10.8)
[2022-11-25 12:59] LABS: Calcium 9.5 mg/dl (8.4-10.2); Glucose 100 mg/dl (74-100)
--- NOTE | 2022-11-25 13:35 | PC.NURSE ---
MD spoke with Dr. Trace Higgins regarding admission. pt being swabbed at this time. MD updated familly on admission.
[2022-11-25 13:40] LABS: Coronavirus 19, PCR Not Detected (NotDetected); Influenza A, PCR Not Detected (NotDetected); Influenza B, PCR Not Detected (NotDetected)
--- NOTE | 2022-11-25 13:40 | PC.NURSE ---
notified packing house supervisor of admission
--- NOTE | 2022-11-25 14:13 | PC.NURSE ---
Report called to Mylene Allen RN
--- NOTE | 2022-11-25 14:52 | EXP.HP ---
History of Present Illness *Admission Date: 11/25/22 *Reason for visit:: Back pain *History of present illness: 82-year-old female with history of chronic low back pain with neuropathy presented to the emergency department due to acutely worsening back pain in the last 3 days. She is pending a nerve stimulator implantation in the near future. When discussing symptoms with patient she is unable to provide much history and is tangential. States she has been having trouble sleeping last few days. Currently is stating that she has low lumbar back pain with radiation down her left leg. It is stabbing in the spine and causing electrical sensation down her left leg. She denies any falls or trauma. Her oral medications for anxiety pain and sleep have been unable to help her. She received multiple doses of IV pain medications in the ER with minimal relief. No infectious symptoms, fever, anything concerning to her. Discussed the case with her daughters at bedside. It seems like they are having difficulty taking care of her. She lives at home alone and was very high functioning until 1 month ago. It coincides with an event that occurred approximately 2 months ago when the patient daughter unexpectedly and was found at home. She has since then has been having increased anxiety paranoia and depression. They think her symptoms are partly psychosomatic as symptoms that she describes are often changing fleeting and difficult to describe. What is being described as back pain now was previously located elsewhere in her body. They also reports she was cleaning she had blood in her vomit but when they looked at it it was just ham and food particles. They are mainly concerned about the psychiatric status of the patient as her current back pain seems to be more of a manifestation of underlying psychiatric issues. They have no medical concerns at this time. [facility] Disclaimer: The information contained in this section may have been updated after the patient was seen, as this information can be updated by other users. Medical History Allergy to sulfa drugs Anemia Anxiety Arthritis Cancer Depression Facet arthropathy Facet arthropathy, lumbar Hyperlipidemia Irregular heart rhythm Labile hypertension Lingular pneumonia Low back pain Pain around toenail, left foot Sciatic leg pain Surgical History H/O breast biopsy H/O lumpectomy History of cataract surgery History of cholecystectomy History of hysterectomy History of left knee replacement History of lumpectomy of left breast History of right knee joint replacement Previous back surgery Family History Other Cancer Coronary artery disease Diabetes Heart attack Tuberculosis Social History Smoking Status: Never smoker second hand exposure: No alcohol intake: never substance use type: denies use current occupational status: other Travel in the last 8 weeks: None household members: none housing: house current occupational exposures/hazards: No caffeine: No Review of Systems Review of Systems Review of systems:: pertinent systems reviewed and negative unless documented below Constitutional Constitutional: Denies body ache(s), Denies chills, Reports difficulty sleeping, Denies fever(s) and Denies frequent falls *Neurologic Neurologic: Denies frequent falls Meds Home Medications and Allergies Home Medications Medication Instructions Recorded Confirmed Type calcium carbonate 600 mg calcium 600 mg PO DAILY Supplement 02/20/18 11/25/22 History (1,500 mg) tablet omega-3 fatty acids 300 mg capsule 300 mg PO DAILY Cholesterol 02/20/18 11/25/22 History melatonin 5 mg capsule 5 mg PO ONCE sleep 11/17/18 11/25/22 History multivitamin,tx-iron-min
--- NOTE | 2022-11-25 15:01 | XR_ITS ---
PROCEDURE INFORMATION: Exam: XR Lumbosacral Spine Exam date and time: 11/25/2022 3:44 PM Age: 82 years old Clinical indication: Low back pain; Prior surgery; Surgery date: 6+ months; Surgery type: Lumbar surgery many years ago patient stated. ; Additional info: Pain and hardware TECHNIQUE: Imaging protocol: Radiologic exam of the lumbosacral spine. Views: 2 or 3 views. COMPARISON: CR XR LUMBAR SPINE 2-3V 02/23/2022 1:04 PM FINDINGS: Bones/joints: Patient is status post fusion of the lumbar spine with pedicle screws at L3 through L5 with vertical stabilization rods which appear stable and intact. Advanced multilevel degenerative disc disease with pronounced disc space narrowing associated with prominent spurring as well as vacuum phenomenon at the L1-L2 through L5-S1 level similar to previous. Alignment is preserved. Soft tissues: Unremarkable. IMPRESSION: Stable L-spine x-ray with postop and advanced multilevel degenerative changes. No acute findings.
--- NOTE | 2022-11-25 15:34 | PC.NURSE ---
pt is currently resting in bed with her eyes closed. i spoke to MD regarding dilaudid she received in the ER. pt is confused @ his time and is a poor historian. Will continue to monitor. bed alarm in place
[2022-11-25 16:01] LABS: C-Reactive Protein 1.2 mg/L (0-4)
[2022-11-25 16:20] LABS: Erythrocyte Sedimentation Rate 42 mm/hr (0-30)
[2022-11-25 18:24] LABS: Microscopic, Urine URINE MICROSCOPIC (MICROSCOPIC)
--- NOTE | 2022-11-25 18:43 | PC.NURSE ---
pt noted to have episodes of confusion and being unable to answer questions. Per family she had not voided since 0900. I contaced . Clean catch sample obtained. pt was incontinent. Family denies that pt has a history of diabetes and does not wan fsbs. pt gait unsteady at times and generalized weakness noted. Bed alarm in place.
[2022-11-25 19:28] LABS: Appearance,Urine CLEAR (Clear); Bilirubin,Urine Negative (Negative); Blood, Urine Negative (Negative); Color,Urine YELLOW (Yellow); Glucose,Urine (UA) Negative (Negative); Ketones,Urine Negative (Negative); Leukocyte Esterase,Urine 1+ (Negative); Nitrate,Urine Negative (Negative); Protein,Urine Negative (Negative); Specific Gravity, Urine 1.015 (1.005-1.030); Urobilinogen,Urine 0.2 EU/dl (0.2)
[2022-11-25 19:45] LABS: Bacteria,Urine Trace /lpf; Hyaline Casts,Urine Occasional #/lpf (0); Squamous Epithelial Cell,Urine Occasional #/hpf (0-5)
[2022-11-26 04:00] VITALS: BP 135/60; PULSE 82; RESP 18; TEMP 36.7; O2SAT 95; BMI 22.9
[2022-11-26 06:34] LABS: Basophils # 0.1 K/mm3 (0-0.2); Basophils % 0.7 % (0.1-2.0); Eosinophils # 0.3 K/mm3 (0.0-0.4); Eosinophils % 4.4 % (0.1-12.0); Hematocrit 38.2 % (37.0-47.0); Hemoglobin 12.3 g/dL (12.2-16.2); Lymphocytes # 1.3 K/mm3 (0.7-4.5); Lymphocytes % 17.4 % (10-50); Mean Corpuscular HGB Conc 32.2 g/dL (31.8-35.4); Mean Corpuscular Hemoglobin 31.2 pg (27.0-31.2); Mean Corpuscular Volume 96.8 fl (81-99); Mean Platelet Volume 7.3 fl (7.4-10.4); Monocytes # 0.5 K/mm3 (0.1-1.0); Monocytes % 7.1 % (1.7-9.3); Neutrophils # 5.1 K/mm3 (1.8-7.8); Neutrophils % 70.4 % (37.0-80.0); Platelet Count 267 K/mm3 (142-424); Red Blood Count 3.95 M/mm3 (4.20-5.40); Red Cell Distribution Width 12.4 % (11.5-17.5); White Blood Count 7.2 K/mm3 (4.8-10.8)
[2022-11-26 06:39] LABS: Chloride 104 mmol/L (98-107); Potassium 4.1 mmoL/L (3.5-5.1); Sodium 137 mmol/L (136-145)
[2022-11-26 06:41] LABS: Alanine Aminotransferase 45 U/L (12-78); Alkaline Phosphatase 71 U/L (38-126); Aspartate Amino Transferase 52 U/L (14-36); Bilirubin,Total 0.8 mg/dl (0.2-1.3); Blood Urea Nitrogen 25 mg/dl (7-17); Creatinine Clearance Estimated 52 mL/min (50-200); Estimated Glomerular Filt Rate 53 ml/min (>60); GFR (African American) 65 ML/MIN (>60)
[2022-11-26 06:42] LABS: Albumin Level 4.2 g/dl (3.5-5.0); Albumin/Globulin Ratio 1.5 (1.1-1.8); Anion Gap 10.1 mEq/L (5-15); Carbon Dioxide 27 mmol/L (22.0-30.0); Globulin 2.8 g/dL (1.3-3.2); Glucose 99 mg/dl (74-100); Magnesium 2.1 mg/dl (1.6-2.3); Phosphorous 3.4 mg/dl (2.5-4.5)
--- NOTE | 2022-11-26 07:48 | HMH.PHAINT1 ---
Pharmacy Intervention Comments: Reconciled patient's home medications using pharmacy fill history and patient interview.
[2022-11-26 07:56] VITALS: BP 127/71; PULSE 90; RESP 18; TEMP 36.6; O2SAT 94
--- NOTE | 2022-11-26 08:53 | EXP.DC.SUM ---
General Admission date:: 11/25/22 Discharge date: 11/26/22 HPI HPI HPI: 82-year-old female with history of chronic low back pain with neuropathy presented to the emergency department due to acutely worsening back pain in the last 3 days. She is pending a nerve stimulator implantation in the near future. When discussing symptoms with patient she is unable to provide much history and is tangential. States she has been having trouble sleeping last few days. Currently is stating that she has low lumbar back pain with radiation down her left leg. It is stabbing in the spine and causing electrical sensation down her left leg. She denies any falls or trauma. Her oral medications for anxiety pain and sleep have been unable to help her. She received multiple doses of IV pain medications in the ER with minimal relief. No infectious symptoms, fever, anything concerning to her. Discussed the case with her daughters at bedside. It seems like they are having difficulty taking care of her. She lives at home alone and was very high functioning until 1 month ago. It coincides with an event that occurred approximately 2 months ago when the patient daughter unexpectedly and was found at home. She has since then has been having increased anxiety paranoia and depression. They think her symptoms are partly psychosomatic as symptoms that she describes are often changing fleeting and difficult to describe. What is being described as back pain now was previously located elsewhere in her body. They also reports she was cleaning she had blood in her vomit but when they looked at it it was just ham and food particles. They are mainly concerned about the psychiatric status of the patient as her current back pain seems to be more of a manifestation of underlying psychiatric issues. They have no medical concerns at this time. Hospital Course Hospital Course Hospital Course: 82-year-old female admitted for acute exacerbation of chronic back pain requiring inpatient pain management as it is refractory to oral and outpatient therapy.? At this time I am uncertain of the etiology behind the back pain but do not have concern for infectious etiology given her normal white count and lack of infectious symptoms.? I will evaluate with x-rays to see if there are fractures and can perform CT if needed however the sensitivity of evaluation may be limited due to underlying metal artifact from spinal hardware.? Acute on chronic back pain -Establish with pain management at [facility]. Given acute worsening, admitted for pain control. Has done well with Toradol and occasional opiates. Is na?ve to opiates however. Will transition to lidocaine patch and continue Toradol. Would benefit from continued therapy. PT and OT evaluated during admission, recommend short-term rehab for therapy on her lower back given risk of fall at home. Is scheduled to see her pain management as an outpatient in the coming weeks for trial of nerve stimulator. Of note, imaging during admission showing stable degenerative disease and stable hardware. Continue gabapentin and duloxetine per home regimen. Anxiety / Depression -Continue home meds including Wellbutrin and duloxetine. Patient appears to be having grief reaction given the loss of her daughter 2 months ago. This is adding a psychosomatic component to her pain. Patient is scheduled to see a therapist at [facility] later this week to initiate therapy for her depression and grief reaction. She has been appropriate with staff, no concern for karla psychiatric disorder. Medically stable for discharge for continued therapy. Patient has graciously been accepted by [facility]. Discharged in stable condition. Exam Data for Last 24 hours Vital signs and Labs for Last 24 Hours: Temp Pulse Resp BP Pulse Ox 97.8 F 90 18 127/71 94 L 11/26/22 07:56 11/26/22 07:56 11/26/22 07:56 11/26/22 07:56 11/04
--- NOTE | 2022-11-26 10:01 | HMH.OTEV ---
OT Inpatient Evaluation Rehab OT IP Evaluation Start: 11/26/22 07:32 Freq: ONCE Status: Active Protocol: Document 11/26/22 09:55 [place] (Rec: 11/26/22 10:01 [facility] [id number]) Rehab OT IP Assessment Subjective History Pt oriented x 3 on arrival. Pt agreeable to engage in therapy evaluation. Pt was admitted on 11/25/22 due to chronic back pain. Prior to being in the hospital, pt lived at home alone. Pt claims she was independent with all ADLs. She did use a cane during ambulation. Pt reports she was able to complete IADLs independently as well. Family does check on patient often to assist with needs. Pt has a past medical history of: Allergy to sulfa drugs Anemia Anxiety Arthritis Cancer Depression Facet arthropathy Facet arthropathy, lumbar Hyperlipidemia Irregular heart rhythm Labile hypertension Lingular pneumonia Low back pain Pain around toenail, left foot Sciatic leg pain Subjective My back is hurting this morning. Objective Patient Orientation Person,Place,Birthday Upper Extremity Gross ROM WFL Bed Mobility bed mobility-scooting,bed mobility - supine/sit,bed mobility - rolling Assist Level Contact Guard/Hand Hold Transfer Training Sit/Stand Transfer Assist Level Minimal x 1 (25% assist) Chair Transfer Ability Minimal x 1 (25% assist) Chair Transfer Technique Sit to/from Ambulatory Chair Transfer Assistive Devices Straight Cane Rehab OT IP prob,goals,plan Problems Date of Evaluation: 11/26/22 OT IP Problems Bed Mobility,Transfers,Balance ,Self care,Safety Rehab Potential Rehab Potential Good Equipment Needs Assistive Devices
--- NOTE | 2022-11-26 11:04 | SW/DCPLANNER ---
Addendum entered by Kenyatta Schuler 11/26/22 12:54: [facility] is able to accept this patient today. I have updated MD and patient/family: patient is agreeable at this time. Patient will discharge today. Original Note: PT/OT has recommended SNF level of care at time of discharge. Patient/family are agreeable to placement at [facility] or [facility]. I have faxed information to both facilities. These are the only facilities patient is interested in and would prefer to return home with family and home health services if neither facility can accept. Patient/family does understand that she is medically stable for discharge today.
--- NOTE | 2022-11-26 12:09 | HMH.PTEV ---
Physical Therapy Evaluation Rehab PT IP Evaluation Start: 11/25/22 15:13 Freq: ONCE Status: Active Protocol: Document 11/26/22 11:48 BISI (Rec: 11/26/22 12:09 BISI [id number]) Subjective/History History History Pt is an 82 year old female with a history of chronic low back pain with neuropathy presented to the emergency department on 11/25/2022 due to acutely worsening back pain in the last 3 days. She is pending a nerve stimulator implantation in the near future. Pt was unable to provide much detail regarding LBP symptoms. Pt stated she has been having trouble sleeping last few days. Currently is stating that she has low lumbar back pain with radiation down her left leg. Pt described pain as stabbing with electrical sensation down her left leg. Pt denied any falls or trauma. She received multiple doses of IV pain medications in the ER with minimal relief. No infectious symptoms, fever, anything concerning to her. Pt lost her daughter ~ 2 months ago and has been having increased anxiety paranoia and depression. PMH: Allergy to sulfa drugs, Anemia, Anxiety, Arthritis, Cancer, Depression, Facet arthropathy, Facet arthropathy, Hyperlipidemia, Irregular heart rhythm, Labile hypertension, Lingular pneumonia , Low back pain, Pain around toenail, left foot, Sciatic leg pain Subjective Subjective Pt presents seated on bed with family at side, agreeable to therapy initial evaluation. Pt reports she is having back pain at rest. Pt reports that at baseline, she lives alone
--- NOTE | 2022-11-27 13:09 | CARE MANAGER ---
Attempted to contact [facility]. Unable to get anyone to answer.
== END 2022-11-26 14:31 ==
LOC: ER 10:31 → 2ND 13:59
PROVIDERS: Admitting Provider Student in an Organized Health Care Education/Training Program; Emergency Provider Emergency Medicine; PCP Family Medicine; Visit Provider Student in an Organized Health Care Education/Training Program
DX: M54.9 Dorsalgia, unspecified (principal); Z79.899 Other long term (current) drug therapy; M54.30 Sciatica, unspecified side; M54.50 Low back pain, unspecified; E78.5 Hyperlipidemia, unspecified; R52 Pain, unspecified; F43.21 Adjustment disorder with depressed mood; Z20.822 Contact with and (suspected) exposure to COVID-19
CPT/HCPCS: G0378; 36415; 71045; 72100; 80053; 81001; 83735; 84100; 85025; 85651; 86140; 87086; 87088; 87186; 97162; 97166; 97530; 99285; C9803; J2405; U0003; U0005

== ENCOUNTER 2023-01-29 09:00 | Outpatient (RCR) | payer MEDICARE, OTHER, SELFPAY ==
--- NOTE | 2022-12-04 12:36 | HMH.PTOPEV ---
PT Outpatient Evaluation Rehab PT Outpatient Evaluation Start: 12/04/22 09:59 Freq: Status: Active Protocol: Document 12/04/22 09:59 PDESEROUX (Rec: 12/04/22 12:36 PDESEROUX [id number]) E-signed By Kayden Montiel, PT Outpatient Therapy Subjective History Subjective History Pt. is a 82 year old female whom presents to [facility] Outpatient Physical Therapy Services in [place] for the initial evaluation this date( 12/04/22) w/ c/o subacute and constant B/L lumbar and LLE P! , numbness, and weakness of insidious onset 3 months ago that has progressively gotten worse. Pt. reports I kept putting it off until I couldn' t walk. Pt. reports admitting self to the E.R. secondary to not being able to ambulate nor stand secondary to the P!. Pt. reports she was in the hospital for two nights, and then discharged to a Jail. Pt. reports only spending one night in the Jail secondary to, I couldn't handle my roommate at the Jail. Pt. reports symptoms worsen w/ standing, bed mobility, and ambulation. Pt. reports P! is sharp and shooting into the LLE to the foot w/ ambulating and standing. Pt. reports having symptom relief w/ sitting and resting. Pt. denies having any injections for current complaint. Pt. reports having recent diagnostic imaging, however, pt. is unable to recall results at this time. Physical Therapy to contact location of imaging to obtain results, pt. agreed to consent. Pt. reports she is scheduled to RTND on 12/11/22 to have surgery for a pain stimulator. Current medication list
== END 2023-01-29 10:00 | disposition home or self-care (01) ==
LOC: PT 09:00
PROVIDERS: PCP Family Medicine; Visit Provider Family Medicine
DX: M54.9 Dorsalgia, unspecified (principal); M54.50 Low back pain, unspecified; M54.32 Sciatica, left side
CPT/HCPCS: 97110; 97140; 97163; 97164

== ENCOUNTER → 2023-05-16 12:52 | Outpatient (CLI) | payer MEDICARE, OTHER, SELFPAY ==
--- NOTE | 2023-05-16 12:58 | XR_ITS ---
FINAL REPORT CLINICAL HISTORY: left shoulder pain no surgery previous torn rotator cuff a few years ago FINDINGS: Left shoulder Three views were obtained. There is no acute fracture or dislocation. There are mild AC and glenohumeral joint degenerative changes. No soft tissue abnormality is identified. IMPRESSION: Mild degenerative changes. Reviewed, Interpreted and Dictated by Cory Turner III, MD Transcribed by Jodi Russell Authenticated and [facility]
[2023-05-16 16:49] LABS: Alanine Aminotransferase 26 U/L (12-78); Albumin Level 4.2 g/dl (3.5-5.0); Albumin/Globulin Ratio 1.6 (1.1-1.8); Alkaline Phosphatase 66 U/L (38-126); Anion Gap 14.6 mEq/L (5-15); Aspartate Amino Transferase 43 U/L (14-36); Bilirubin,Total 0.4 mg/dl (0.2-1.3); Blood Urea Nitrogen 20 mg/dl (7-17); Calcium 9.5 mg/dl (8.4-10.2); Carbon Dioxide 27 mmol/L (22.0-30.0); Chloride 104 mmol/L (98-107); Chol/HDL Ratio 2.9 (1-3.5); Cholesterol 157 mg/dl (140-200); Estimated Glomerular Filt Rate 69 ml/min (>60); GFR (African American) 83 ML/MIN (>60); Globulin 2.7 g/dL (1.3-3.2); Glucose 100 mg/dl (74-100); HDL Cholesterol 55 mg/dl (40-60); Potassium 4.6 mmoL/L (3.5-5.1); Sodium 141 mmol/L (136-145); Total Protein,Serum 6.9 g/dl (6.3-8.2); Triglycerides 144 mg/dl (30-150); VLDL Cholesterol 29 mg/dL (0-40)
[2023-05-16 17:00] LABS: Direct LDL Cholesterol 74.99 mg/dL (100-129)
[2023-05-16 17:02] LABS: Basophils % 0.6 % (0.1-2.0); Eosinophils # 0.2 K/mm3 (0.0-0.4); Eosinophils % 4.8 % (0.1-12.0); Hemoglobin 13.4 g/dL (12.2-16.2); Lymphocytes % 20.7 % (10-50); Mean Corpuscular HGB Conc 33.4 g/dL (31.8-35.4); Mean Corpuscular Hemoglobin 32.9 pg (27.0-31.2); Mean Corpuscular Volume 98.5 fl (81-99); Mean Platelet Volume 10.1 fl (7.4-10.4); Monocytes # 0.3 K/mm3 (0.1-1.0); Monocytes % 6.4 % (1.7-9.3); Neutrophils # 3.4 K/mm3 (1.8-7.8); Neutrophils % 67.4 % (37.0-80.0); Platelet Count 259 K/mm3 (142-424); Red Blood Count 4.06 M/mm3 (4.20-5.40); Red Cell Distribution Width 12.2 % (11.5-17.5)
[2023-05-16 17:19] LABS: Thyroid Stimulating Hormone 1.82 uIU/mL (0.465-4.68)
== END ==
PROVIDERS: PCP Family Medicine; Visit Provider Family Medicine
DX: E78.5 Hyperlipidemia, unspecified; M54.50 Low back pain, unspecified; M25.512 Pain in left shoulder
CPT/HCPCS: 73030; 80053; 80061; 84443; 85025

== ENCOUNTER 2023-09-02 18:48 | Outpatient (CLI) | payer MEDICARE, SELFPAY | END 2023-09-02 23:59 | LOC: LAB.DROPOF 18:49 | PROVIDERS: PCP Family Medicine; Visit Provider Family Medicine | DX: R39.9 Unspecified symptoms and signs involving the genitourinary system (principal) | CPT/HCPCS: 87086 ==

== ENCOUNTER 2023-11-04 15:12 | Outpatient (CLI) | payer MEDICARE, SELFPAY ==
[2023-11-08 04:50] LABS: Atopobium vaginae Low - 0 Score (.); BVAB2 Low - 0 Score (.); Candida albicans NAA Negative (Negative); Candida glabrata Negative (Negative); Chlamydia Trachomatis NAA Negative (Negative); HSV 1 NAA Negative (Negative); HSV 2 NAA Negative (Negative); Megasphaera 1 Low - 0 Score (.); Neisseria gonorrhoeae NAA Negative (Negative); Trich vag NAA Negative (Negative)
[2023-11-16 00:08] LABS: Mycoplasma genitalium NAA Negative (Negative); Mycoplasma hominis NAA Negative (Negative); Ureaplasma spp NAA Negative (Negative)
== END 2023-11-04 23:59 | disposition home or self-care (01) ==
LOC: LAB.DROPOF 15:12
PROVIDERS: PCP Urology; Visit Provider Urology
DX: N95.2 Postmenopausal atrophic vaginitis (principal); N76.0 Acute vaginitis
CPT/HCPCS: 87491; 87529; 87563; 87591; 87661; 87798; 87801

== ENCOUNTER 2023-11-05 09:47 | Outpatient (CLI) | payer MEDICARE, SELFPAY ==
--- NOTE | 2023-11-05 09:48 | XR_ITS ---
FINAL REPORT CLINICAL HISTORY: r/o osteomyelitis left foot 4-5 toes MP COMPARISON: 05/21/2022 FINDINGS: Left foot Three views were obtained. There is no acute fracture or dislocation. There are mild degenerative changes. Chronic calcification is seen adjacent to the proximal 5th metatarsal. No definite bony erosion is identified. There is no significant change from previous. IMPRESSION: No definite bony erosion. If indicated, MRI is a more sensitive study. Reviewed, Interpreted and Dictated by Cory Turner III, MD Transcribed by Jodi Russell Authenticated and . [facility]
--- NOTE | 2023-11-05 09:48 | MM_ITS ---
PROCEDURE INFORMATION: Exam: MG Bilateral Screening 3D Mammography Exam date and time: 11/05/2023 9:41 AM Age: 83 years old Clinical indication: Screening examination TECHNIQUE: Imaging protocol: Bilateral Screening tomosynthesis and 2D mammography including computer-aided detection (CAD) when performed. COMPARISON: 1. MG MM DIG SCREENING MAMM BI W/CAD 11/01/2022 11:06 AM 2. MG MM DIG SCREENING MAMM BI W/CAD 10/30/2021 8:40 AM FINDINGS: MAMMOGRAPHY: Breast composition: The breasts are heterogeneously dense, which may obscure small masses. Mass: None. Architectural distortion: Stable post operative architectural distortion in the left upper outer quadrant due to prior lumpectomy for carcinoma. Calcifications: No suspicious calcifications. Asymmetric density: None. Skin thickening: None. Axillary adenopathy: None. IMPRESSION: No mammographic evidence of malignancy. Annual screening is recommended unless otherwise clinically indicated. ASSESSMENT: BI-RADS Category 2: Benign.
== END 2023-11-05 23:59 ==
LOC: RAD 09:48
PROVIDERS: PCP Family Medicine; Visit Provider Family Medicine
DX: Z12.31 Encounter for screening mammogram for malignant neoplasm of breast (principal); M79.672 Pain in left foot
CPT/HCPCS: 73630; 77063; 77067

== ENCOUNTER 2023-12-19 10:46 | Outpatient (CLI) | payer MEDICARE, SELFPAY ==
--- NOTE | 2023-12-19 10:46 | CT_ITS ---
FINAL REPORT TECHNIQUE: Axial CT images of the abdomen and pelvis were obtained before and after the administration of IV contrast. Oral contrast was administered.This study was performed with techniques to keep radiation doses as low as reasonably achievable (ALARA). Individualized dose reduction techniques using automated exposure control or adjustment of mA and/or kV according to the patient''s size were employed. CLINICAL HISTORY: Hematuria FINDINGS: Abdomen: There is mild bibasilar atelectasis or scar. The heart is normal in size. The liver has an unremarkable appearance. Patient is status post cholecystectomy. There is mild biliary ductal dilatation, likely post cholecystectomy change. The spleen is unremarkable. No adrenal masses present. The pancreas has an unremarkable appearance. The kidneys enhance normally. The aorta is normal in caliber. There is no free fluid or adenopathy. No mass or abnormal fluid collection is seen. Precontrast images demonstrate no evidence of nephrolithiasis. Pelvis: The appendix is not well visualized. Patient is status post hysterectomy. There is fusion of L3-L5. There are degenerative changes of the lumbar spine. The urinary bladder is unremarkable. No inflammatory process is seen. There is no evidence of mass or adenopathy. There is no evidence of bowel obstruction. IMPRESSION: No renal mass identified. Reviewed, Interpreted and Dictated by Cory Turner III, MD Transcribed by Jodi Russell Authenticated and [facility]
[2023-12-19 11:09] LABS: Blood Urea Nitrogen 20 mg/dl (7-17)
[2023-12-19 11:10] LABS: Estimated Glomerular Filt Rate 60 ml/min (>60); GFR (African American) 73 ML/MIN (>60)
[2023-12-19] MEDS: IOPAMIDOL-370 (76%);100ML BOTTLE 75 ML IV (11:55)
[2023-12-19] MEDS: SODIUM CHLORIDE 0.9% 10ML SYR (RAD ONLY) 10 ML IV (11:55)
== END 2023-12-19 23:59 | disposition home or self-care (01) ==
LOC: RAD 10:46
PROVIDERS: PCP Family Medicine; Visit Provider Urology
DX: R31.9 Hematuria, unspecified (principal)
CPT/HCPCS: 36415; 74178; 82565; 84520; Q9967

== ENCOUNTER 2023-12-20 08:40 | Day surgery (SDC) | payer MEDICARE, SELFPAY ==
[2023-12-20 09:13] VITALS: BP 130/69; PULSE 71; RESP 16; TEMP 36.1; O2SAT 96
[2023-12-20 09:24] VITALS: BMI 23.6
[2023-12-20 11:39] VITALS: BP 118/61; PULSE 64; RESP 16; TEMP 37.1; O2SAT 96
--- NOTE | 2023-12-20 11:44 | P.PCN_ITS ---
[facility] Procedure Note Date: 12/20/23 Time: 11:44 Procedure Note:: Preop diagnosis hematuria postop diagnosis: Urethritis Operation: Cystoscopy: The patient was brought to the procedure room she was prepped and draped in the usual manner. She has atrophic vaginitis. After she is prepped and draped she underwent sterile catheterization for urine culture and sensitivity. The patient then underwent flexible cystoscopy. The ureteral orifice ease are normal bilaterally with clear reflux of urine. The bladder itself is [place] pink in color throughout without evidence of bladder stone tumor hemorrhage or infection. The patient does have significant urethritis and this is the likely source for the hematuria. She currently is on Estrace that hopefully will help the urethritis.
[2023-12-20 11:58] VITALS: BP 117/55; PULSE 63; RESP 16; TEMP 37.1; O2SAT 95
== END 2023-12-20 11:58 | disposition home or self-care (01) ==
PROVIDERS: PCP Family Medicine; Visit Provider Urology
PROC: 0TJB8ZZ Inspection of Bladder, Via Natural or Artificial Opening Endoscopic (ICD-10-PCS; CPT 52000; principal; 2023-12-20 09:45)
DX: N34.2 Other urethritis (principal); N95.2 Postmenopausal atrophic vaginitis; R31.9 Hematuria, unspecified
CPT/HCPCS: 52000

== ENCOUNTER 2024-11-06 10:37 | Outpatient (CLI) | payer MEDICARE, BC, SELFPAY ==
--- NOTE | 2024-11-06 10:40 | MM_ITS ---
PROCEDURE INFORMATION: Exam: MG Bilateral Screening 3D Mammography Exam date and time: 11/06/2024 10:56 AM Age: 84 years old Clinical indication: Screening. Personal history of left breast cancer, status post lumpectomy and radiation. TECHNIQUE: Imaging protocol: Bilateral Screening tomosynthesis and 2D mammography including computer-aided detection (CAD) when performed. COMPARISON: 1. MG MM DIG SCREENING MAMM BI W/CAD 11/05/2023 9:41 AM 2. MG MM DIG SCREENING MAMM BI W/CAD 11/01/2022 11:06 AM 3. MG MM DIG SCREENING MAMM BI W/CAD 10/30/2021 8:40 AM 4. MG MM DIG MAMM DX UNILAT LT CAD 08/16/2021 1:54 PM FINDINGS: MAMMOGRAPHY: Breast composition: The breasts are heterogeneously dense, which may obscure small masses. Mass: None. Architectural distortion: Stable postoperative architectural distortion and surgical clips in the left axillary tail with history of left lumpectomy. Calcifications: No suspicious calcifications. Asymmetric density: None. Skin thickening: None. Axillary adenopathy: None. IMPRESSION: No mammographic evidence of malignancy. Annual screening is recommended unless otherwise clinically indicated. In women diagnosed with breast cancer before age 50 or with personal histories of breast cancer and dense breasts, the [employer] recommends annual supplemental MRI in addition to yearly mammography. Alternative supplemental studies may include breast sonography or contrast enhanced mammography. ASSESSMENT: BI-RADS Category 2: Benign.
== END 2024-11-06 23:59 | disposition home or self-care (01) ==
LOC: RAD 10:38
PROVIDERS: PCP Family Medicine; Visit Provider Family Medicine
DX: Z12.31 Encounter for screening mammogram for malignant neoplasm of breast (principal)
CPT/HCPCS: 77063; 77067

== ENCOUNTER 2025-04-13 18:24 | Emergency (ER) | payer MEDICARE, BC, SELFPAY ==
--- OUTSIDE RECORDS SUMMARY | 2024-11-07 17:30 | XMS_ITS ---
Author Organization [facility] D N[facility] Address [address] [facility] [address] [place] [address] Care Team Providers Care Pure Pak Machine Operator Name Role Phone CucaamandaSergey Primary Care Provider Migration, Provider Unavailable Unavailable Allergies Allergen (clinical drug ingredient) Drug/Non Drug Allergy documented on EMR Reaction Allergy Type Onset Date Status SULFA (uncoded) Unknown Allergy Acti ve REASON FOR VISIT [facility] To [facility] Conversion Encounter Medications Medication SIG (Take, Route, [...] review and pick correct strength-formulatio n from [employer] options. If intended option is not shown, discontinue and re-order from Quick Search* 11/19/2013 Active Aspirin 81 MG 1 tab(s) orally bid Active Gabapentin 300 MG 1 cap(s) orally 3 times a day; Duration: 90 days 04/03/2022 Active Calcium 600 + D 600 MG-800 INTL UNITS 1 TAB(S) ORALLY 2 TIMES A DAY *Please review and pick correct strength-formulatio n from [employer] options. If intended option is not shown, discontinue and re-order from Quick Search* Active Vitamin D (Ergocalciferol) 2000 MG 1 CAP(S) ORALLY DAILY; Duration: 90 DAYS *Please review and pick correct strength-formulatio n from [employer] options. If intended option is not shown, discontinue and re-order from Quick Search* Active Multivitamin 1 TAB ONCE A DAY *Please review and pick correct strength-formulatio n from [employer] options. If intended option is not shown, discontinue and re-order from Quick Search* Active Encounters Encounter Location Date Provider Diagnosis [facility] [address] [facility] [address] [place] [address] 11/07/2024 Provider Migration Mechanical low back pain [...] * Roro CANCHOLA HDOB:1940 (85 yo F)Acc No.[id number]:11/07/2024 Patient: Roro KIMBROUGH Provider: Aris hagan Migration :1940 A ge:84 Y S ex:Female Date:11/07/2024 Address:[address], [place], [id number] Pcp:Sergey Stout Subjective: * Chief Complaints: * [facility] * Medical History: * Medications: T aking Multivitamin 1 TAB ONCE A DAY , Notes to Pharmacist: *Please review and pick correct strength-formulation from [employer] options. If intended option is not shown, discontinue and re-order from Quick Search*, Taking Calcium 600 + D 600 MG-800 INTL UNITS TABLET 1 TAB(S) ORALLY 2 TIMES A DAY , Notes to Pharmacist: *Please review and pick correct strength-formulation from [employer] options. If intended option is not shown, discontinue and re-order from Quick Search*, Taking Vitamin D (Ergocalciferol) 2000 MG CAPSULE 1 CAP(S) ORALLY DAILY , Notes to Pharmacist: *Please review and pick correct strength-formulation from [employer] options. If intended option is not shown, discontinue and re-order from Quick Search*, Taking Fish Oil 1000 MG DIRECTED PO QD , Notes to Pharmacist: 300mg *Please review and pick correct strength- formulation from [employer] options. If intended option is not shown, [...] tab(s), orally, once a week, 28 day(s), 4.00741, Refills 2; S tart buPROPion HCl ER [...] Electronic signature of Prov ider Migration on 04/13/2025 at 06:53 PM EDT Sign off status: Pending * Provider: Aris hagan Migration Date: 0 11/07/2024 Generated for New rodriguez/Shani/Joneitting on: 0 04/13/2025 06:53 PM EDT
[2025-04-13 18:27] VITALS: BP 166/79; PULSE 73; RESP 20; TEMP 36.8; O2SAT 97; BMI 22.1
[2025-04-13 18:46] VITALS: O2SAT 96
--- NOTE | 2025-04-13 18:50 | XR_ITS ---
PROCEDURE INFORMATION: Exam: XR Left Ankle Exam date and time: 04/13/2025 6:56 PM Age: 85 years old Clinical indication: Pain; Foot; Left; Additional info: Fall, lateral, medial posterior pain TECHNIQUE: Imaging protocol: Radiologic exam of the left ankle. Views: 3 or more views. COMPARISON: CR XR FOOT LT MIN 3V 11/05/2023 10:15 AM FINDINGS: Bones/joints: Old dystrophic calcification of the base of the 5th metatarsal bone. No acute fracture. Soft tissues: Normal. IMPRESSION: Old dystrophic calcification of the base of the 5th metatarsal bone. No acute fracture.
--- NOTE | 2025-04-13 18:50 | XR_ITS ---
PROCEDURE INFORMATION: Exam: XR Left Foot Exam date and time: 04/13/2025 6:56 PM Age: 85 years old Clinical indication: Pain; Foot; Left; Additional info: Lateral tenderness TECHNIQUE: Imaging protocol: Radiologic exam of the left foot. Views: 3 or more views. COMPARISON: CR XR FOOT LT MIN 3V 11/05/2023 10:15 AM FINDINGS: Bones/joints: Old dystrophic calcification at the base of the 5th metatarsal bone. Soft tissues: Normal. IMPRESSION: No acute findings.
--- NOTE | 2025-04-13 18:52 | ED_ITS ---
<Statement entered by Shayna Tate DO - 04/13/25 23:30> I was consulted by the OLMAN, and we discussed the complexity of problems being addressed. I approve the treatment and management plan for this patient's care in the emergency department, thus performing a substantial portion of the medical decision making. Shayna Tate DO Discharge Plan Disposition Patient Disposition: Home, Self-Care Prescriptions Prescriptions: No Action amoxicillin 500 mg tablet 500 mg PO BID Qty: 20 0RF Complete Multivitamin tablet 1 tab PO DAILY alprazolam 0.25 mg tablet 0.25 mg PO HS PRN (Reason: sleep) Qty: 20 0RF atorvastatin 80 mg tablet 80 mg PO DAILY 90 Days Qty: 90 0RF bupropion HCl [Wellbutrin XL] 300 mg tablet extended release 24 hr 300 mg PO DAILY 90 Days Qty: 90 0RF gabapentin 300 mg capsule 300 mg PO TID 30 Days Qty: 270 1RF alendronate 70 mg tablet See Rx Instructions .ROUTE .COMPLEX Qty: 5 5RF Dose Instruction: Take 1 tablet by mouth once a week Rx Instructions: Take 1 tablet by mouth once a week calcium carbonate 600 MG tablet 600 mg PO DAILYP PRN (Reason: Acid Reflux) omega-3 fatty acids 300 MG capsule 300 mg PO DAILY polyethylene glycol 3350 17 GM powder in packet 17 gm PO DAILY aspirin 81 MG tablet,delayed release (DR/EC) 1 mg PO DAILY Referrals Follow up/Referrals: Anthony Pop DO [Staff Physician, Orthopedics] - See instructions Pool Brown MD [Primary Care Provider, Internal Medicine] - See instructions Activity Restrictions/Add. Instructions Additional Instructions/Restrictions: Today you were evaluated in the emergency department and diagnosed with 5th metatarsal avulsion fracture, most likely with tendon involvement. Please follow-up with Ortho, the phone number will be listed above. Please use the walking boot as directed. Return to the ED for worsening of condition. Clinical Impressions Clinical Impression: Avulsion fracture Instructions Patient Instructions: DI for Avulsion Fracture Print Language Print Language: Finnish Discharge ED Provider: Shayna Tate General Adult HPI <Lupe Lux APRN - Last Filed: 04/13/25 19:47> General Chief complaint: Fall Stated complaint: AO 04/13/25 injury left foot injury Time Seen by Provider: 04/13/25 18:29 Mode of Arrival: Ambulatory Source of Information: Patient Description of Symptoms (Recalled from ER Triage Doc. by RN): patient presents to the ED with family after a fall at home. Patient was trying to get into her h ouse and didnt lift her foot up high enough. Patient did fall forward mostly landing on her left ankle, and did hit her head. No loss of consciousness noted. History of Present Illness HPI narrative: patient is an 85-year-old female PMHx hyperlipidemia who presents to the ED after a fall that occurred today. Patient states she was walking through a doorway when her foot tripped over the threshold, she was carrying things in her hand when she fell forward, patient states she landed on her left knee. Denies head injury, denies loss of consciousness. Denies being on blood thinners. Patient states the only area of pain is her left foot and ankle. Related Data Home Medications ?Medication ?Instructions ?Recorded ?Confirmed calcium carbonate 600 mg PO DAILYP PRN Acid Re flux 02/20/18 08/27/24 omega-3 fatty acids 300 mg capsule 300 mg PO DAILY Cho lesterol 02/20/18 08/27/24 multivitamin,id-tcsh-[id number] 1 tab PO DAILY Supplemen t 11/17/18 08/27/24 (Complete Multivitamin tablet) polyethylene glycol 3350 17 gram 17 gm PO DAILY consti pation 03/01/19 08/27/24 oral powder packet aspirin 81 mg tablet,delayed 1 mg PO DAILY Heart disea se 09/23/19 08/27/24 release Previous Rx's ?Medication ?Instructions ?Recorded amoxicillin 500 mg tablet 500 mg PO BID #20 tabs 08/27 alprazolam 0.25 mg tablet 0.25 mg PO HS PRN sleep #20 tabs 11/25/24 atorvastatin 80 mg tablet 80 mg PO DAILY Cholesterol 9 0 days 01/21/25 #90 tabs bupropion HCl 300 mg 24 hr tablet, 300 mg PO DAILY 90 days #90 tabs 01/27/25 extended release (Wellbutrin XL) gabapentin 300 mg capsule 300 mg PO TID Pain 30 days # 270 01/27/25 caps alendronate 70 mg tablet See Rx Instructions .Route 0 04/12/25 .COMPLEX #5 tabs Allergies Allergy/AdvReac Type Severity Reaction Status Date / Time Sulfa (Sulfonamide Allergy Unknown Verified 08/27/24 10:43 Antibiotics) PFSH <Lupe Lux APRN - Last Filed: 04/13/25 19:47> [facility] Disclaimer: The information contained in this section may have been updated after the patient was seen, as this information can be updated by other users. Medical History Pain around toenail, left foot Arthritis Depression Cancer Anxiety Irregular heart rhythm Sciatic leg pain Low back pain Facet arthropathy, lumbar Facet arthropathy Labile hypertension Lingular pneumonia Allergy to sulfa drugs Anemia Hyperlipidemia Surgical History History of lumpectomy of left breast H/O breast biopsy History of cataract surgery H/O lumpectomy History of cholecystectomy History of right knee joint replacement History of left knee replacement History of hysterectomy Previous back surgery Family History Other Cancer Coronary artery disease Diabetes Heart attack Tuberculosis Social History Smoking Status: Never smoker second hand exposure: No alcohol intake: never substance use type: denies use current occupational status: other Travel in the last 8 weeks?: None household members: none housing: house current occupational exposures/hazards: No caffeine: No Have you lived/traveled outside US in past 30 days?: No Contact w/someone who lives/traveled outside US past 30 days?: No Exposure to someone with infectious disease in past 14 days?: No Do you have a fever (greater than 100.4 F or 38 C)?: No Have you tested positive for COVID-19?: No Exposed to someone with COVID-19 in past 14 days?: No Do you have a sore throat?: No Do you have a cough?: No Do you have any weakness?: No Do you have any diarrhea?: No Are you experiencing any unusual bleeding?: No Do you have any muscle aches/pain?: No Do you have any abdominal pain?: No Are you experiencing loss of taste or smell?: No Other Medical History Have you received the Flu Vaccine for this season: No Have you received the Pneumonia Vaccine: Yes <Lupe Lux APRN - Last Filed: 04/13/25 19:47> ROS Obtained: Yes Systems reviewed as appropriate & no additional complaints except as documented Physical Exam <Lupe Lux APRN - Last Filed: 04/13/25 19:47> General General appearance: alert Neck Neck exam: Present full ROM Respiratory Respiratory exam: Present normal lung sounds bilaterally Cardiovascular Cardiovascular exam: Present regular rate Extremities Exam Extremities exam: Present other (Left lower extremity lateral, medial, posterior ankle tenderness. Left lateral ankle edema. Left lateral foot tenderness. Patient has decreased ROM due to pain. Neurovascular status intact) Neurological Exam Neurological exam: Present alert Medical Decision Making <Lupe Lux APRN - Last Filed: 04/13/25 19:47> Medical Records Screening: Per USPSTF and CDC recommendations, given the prevalence of disease in our region, it is our hospital?s policy to screen for HIV and viral Hepatitis for all patients aged 18 and over and those with ongoing risk factors. [place] Inquiry Pt receiving controlled substance: No Vital Signs: 04/13/25 18:27 04/13/25 18:46 04/13/25 19:00 Temperature 98.2 F Temperature Source Oral Pulse Rate 74 Pulse Rate [Right Radial] 73 Respiratory Rate 20 14 Blood Pressure 176/76 H Blood Pressure [Right Arm] 166/79 H Blood Pressure Mean 104 Blood Pressure Mean [Right Arm] 108 Blood Pressure Source Blood Pressure Source [Right Arm] Automatic Cuff Blood Pressure Position [Right Arm] Sitting 02 Sat by Pulse Oximetry 97 96 95 Oxygen Delivery Method Room Air Room Air 04/13/25 19:30 04/13/25 19:39 Temperature 98.7 F Temperature Source Pulse Rate 73 74 Pulse Rate [Right Radial] Respiratory Rate 15 21 Blood Pressure 161/81 H 161/81 H Blood Pressure [Right Arm] Blood Pressure Mean 107 Blood Pressure Mean [Right Arm] Blood Pressure Source Automatic Cuff Blood Pressure Source [Right Arm] Blood Pressure Position [Right Arm] 02 Sat by Pulse Oximetry 95 Oxygen Delivery Method Room Air Orders (Tests/Meds): ED MEDICATIONS Discontinued Medications Generic Name Dose Route Start Last Admin Trade Name Freq PRN Reason Stop Dose Admin Acetaminophen 1,000 mg 04/13/25 18:50 04/13/25 19:00 Acetaminophen 500mg Tab PO 04/13/25 18:51 1,000 mg ONCE ONE Administration ORDERS Category Date Time Status Ankle XR - Left minimum 3 Views [XR ankle LT min 3V] Exams 04/13/25 18:50 Completed Stat XR foot LT min 3V Stat Exams 04/13/25 18:50 Completed Medical Decision Narrative: In summary, patient is an 85-year-old female PMHx hyperlipidemia who presents to the ED after a fall that occurred today. Patient states she was walking through a doorway when her foot tripped over the threshold, she was carrying things in her hand when she fell forward, patient states she landed on her left knee. Denies head injury, denies loss of consciousness. Denies being on blood thinners. Patient states the only area of pain is her left foot and ankle. Family members at bedside states that patient crawled to her phone, called them and they were able to get her to bear weight however with pain. Upon initial evaluation, patient is alert and oriented, cooperative. She has elevated blood pressure, otherwise stable. Physical exam remarkable for a left lateral ankle edema, tenderness, posterior ankle tenderness, medial ankle tenderness. Left lower extremity pulses intact. No spinal deformity, no step-offs, no tenderness . No chest wall tenderness. Bilateral upper extremities nontender, full ROM. Discussed with patient we will proceed with imaging, patient will be symptomatically managed with 1000 mg of Tylenol. X-rays obtained. My independent and informal interpretation of the x-ray is 1/5 metatarsal avulsion fracture, most likely associated with peroneal tendon injury. Patient was placed in a walking boot, she has a walker at home to assist with steadying herself. I discussed with patient and family that since they are already scheduled to see chairperson anesthesiology in a few days, he will most likely not have to follow-up with Ortho however I did place orthopedic phone number on the discharge papers. <Shayna Tate, DO - Last Filed: 04/13/25 23:30> Vital Signs: 04/13/25 18:27 04/13/25 18:46 04/13/25 19:00 Temperature 98.2 F Temperature Source Oral Pulse Rate 74 Pulse Rate [Right Radial] 73 Respiratory Rate 20 14 Blood Pressure 176/76 H Blood Pressure [Right Arm] 166/79 H Blood Pressure Mean 104 Blood Pressure Mean [Right Arm] 108 Blood Pressure Source Blood Pressure Source [Right Arm] Automatic Cuff Blood Pressure Position [Right Arm] Sitting 02 Sat by Pulse Oximetry 97 96 95 Oxygen Delivery Method Room Air Room Air 04/13/25 19:30 04/13/25 19:39 Temperature 98.7 F Temperature Source Pulse Rate 73 74 Pulse Rate [Right Radial] Respiratory Rate 15 21 Blood Pressure 161/81 H 161/81 H Blood Pressure [Right Arm] Blood Pressure Mean 107 Blood Pressure Mean [Right Arm] Blood Pressure Source Automatic Cuff Blood Pressure Source [Right Arm] Blood Pressure Position [Right Arm] 02 Sat by Pulse Oximetry 95 Oxygen Delivery Method Room Air Orders (Tests/Meds): ED MEDICATIONS Discontinued Medications Generic Name Dose Route Start Last Admin Trade Name Danyelle PRN Reason Stop Dose Admin Acetaminophen 1,000 mg 04/13/25 18:50 04/13/25 19:00 Acetaminophen 500mg Tab PO 04/13/25 18:51 1,000 mg ONCE ONE Administration ORDERS Category Date Time Status Ankle XR - Left minimum 3 Views [XR ankle LT min 3V] Exams 04/13/25 18:50 Completed Stat XR foot LT min 3V Stat Exams 04/13/25 18:50 Completed Medical Decision Narrative: In summary, patient is an 85-year-old female PMHx hyperlipidemia who presents to the ED after a fall that occurred today. Patient states she was walking through a doorway when her foot tripped over the threshold, she was carrying things in her hand when she fell forward, patient states she landed on her left knee. Denies head injury, denies loss of consciousness. Denies being on blood thinners. Patient states the only area of pain is her left foot and ankle. Family members at bedside states that patient crawled to her phone, called them and they were able to get her to bear weight however with pain. Upon initial evaluation, patient is alert and oriented, cooperative. She has elevated blood pressure, otherwise stable. Physical exam remarkable for a left lateral ankle edema, tenderness, posterior ankle tenderness, medial ankle tenderness. Left lower extremity pulses intact. No spinal deformity, no step-offs, no tenderness. No chest wall tenderness. Bilateral upper extremities nontender, full ROM. Differential includes but not limited to: fracture, dislocation, sprain, strain, amongst others. Discussed with patient we will proceed with imaging, patient will be symptomatically managed with 1000 mg of Tylenol. X-rays obtained. Patient did not hit her head did not lose consciousness, patient is [place] CT head negative Nexus negative by criteria therefore CT imaging of the head and C-spine were not obtained at this time. My independent and informal interpretation of the x-ray is 1/5 metatarsal avulsion fracture, most likely associated with peroneal tendon injury. Patient was placed in a walking boot, she has a walker at home to assist with steadying herself. I discussed with patient and family that since they are already scheduled to see chairperson anesthesiology in a few days, he will most likely not have to follow-up with Ortho however I did place orthopedic phone number on the discharge papers. Critical Care <Lupe Lux APRN - Last Filed: 04/13/25 19:47> Critical Care Time Critical Care Time: No
--- NOTE | 2025-04-13 18:53 | ECG_ITS ---
APPROVED REPORT Exam: Resting ECG HR:71 bpm ECG Measurements Heart Rate 71 AXES CO 169 P 72 QRSd 89 QRS 68 QT 412 T 76 QTc 435 Conclusion Normal sinus rhythm without acute ST or T wave changes concerning for ischemia Electronically signed by : Shayna Tate, 04/14/2025 00:21:46
--- OUTSIDE RECORDS SUMMARY | 2025-04-13 18:53 | XMS_ITS | Clinical Summary ---
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 buPROPion SR (WELLBUTRIN SR) 150 MG 12 hr tablet Take 1 tablet by mouth Every Morning. 2 Active gabapentin (NEURONTIN) 300 MG capsule TAKE 1 CAPSULE BY MOUTH THREE TIMES DAILY FOR 90 DAYS 2 Active DULoxetine (CYMBALTA) 60 MG capsule Take 1 capsule by mouth Daily. 2 Active atorvastatin (LIPITOR) 80 MG tablet 2 Active multivitamin with minerals tablet tablet Take 1 tablet by mouth Daily. Active [place]-3 Fatty Acids ([place]-3 Fish Oil) 500 MG capsule Take 500 mg by mouth Daily. Active aspirin 81 MG chewable tablet Chew 1 tablet Daily. Active polyethylene glycol (MIRALAX) 17 GM/SCOOP powder Take 17 g by mouth Daily. Active traMADol (ULTRAM) 50 MG tabletIndications :Age-related osteoporosis without current pathological fracture,Arthriti s,Sciatica of left side,DDD (degenerative disc disease), lumbar Take 1 tablet by mouth Every 8 (Eight) Hours As Needed for Moderate Pain or Severe Pain. 1-2 tablets for pain q 8 hours 40 tablet 1 2 Active alendronate (FOSAMAX) 70 MG tablet Take 1 tablet by mouth 1 (One) Time Per Week. 2 Active calcium acetate (PHOS BINDER,) 667 MG capsule capsule Take 2 capsules by mouth. Active polycarbophil 625 MG tablet tablet Take by mouth Daily. Active Diclofenac Sodium (VOLTAREN) 1 % gel gel APPLY 4 GRAMS OF GEL TOPICALLY FOUR TIMES DAILY NEEDED FOR PAIN. APPLY TO SINGLE ANKLE, FOOT (FOR FOOT INCLUDES SOLE, TOES, TOP OF FOOT). APPLY TO FEET IF YOU CAN NOT TAKE ORAL NSAID. 2 Active melatonin 5 MG tablet tablet 1 tab(s) orally once a day (at bedtime) Active meloxicam (MOBIC) 7.5 MG tablet TAKE 1 TABLET BY MOUTH ONCE DAILY FOR FOOT PAIN 2 Active Baclofen (LIORESAL) 5 MG tablet Take 1 tablet by mouth Every 8 (Eight) Hours As Needed. for pain 3 Active Active Problems Problem Noted Date Diagnosed Date DDD (degenerative disc disease), lumbar 08/13/19 23 Sciatica of left side 08/13/2022 Osteoporosis Arthritis Family History Medical History Relation Name Comments Cancer Father Arthritis Mother Cancer Mother Diabetes Mother Heart disease Mother Cancer Sister Diabetes Sister Relation Name Status Comments Father Mother Sister Social History Tobacco Use Types Packs/Day Years Used Date Smoking Tobacco: Never Smokeless Tobacco: Never Tobacco Cessation:Counseling Given: Not Answered Alcohol Use Standard Drinks/Week Comments Never 0 (1 standard drink = 0.6 oz pur e alcohol) PHQ-2 Answer Date Recorded Retired PHQ-9: Brief Depression Severity Measure Score 8 12/19/2022 Abuse Screen Answer Date Recorded Unsafe at Home or Work/School Not on file Feels Threatened by Someone? Not on file 04/2023 Does Anyone Keep You from Co ntacting Others or Doint Things Outside the Home? Not on file 05/13/2023 Physical Sign of Abuse Present Not on file 1 Housing Stability Answer Date Recorded Current Living Arrangements Not on file 04/2023 Potentially Unsafe Housing Conditions Not on yovany e 05/13/2023 Family and Community Support Answer Dale e Recorded Help with Day-to-Day Activities Not on file 05/13/2023 Lonely or Isolated Not on file 05/13/2023 Employment Answer Date Recorded Do you want help finding or keeping work or a sofia b? Not on file 05/13/2023 Disabilities Answer Date Recorded Concentrating, Remembering, or Making Decisions Difficulty Not on file 05/13/2023 Doing Errands Independently Difficulty Not on fi le 05/13/2023 Education Answer Date Recorded Help with school or training? Not on file Preferred Language Not on file 05/13/2023 PHQ-2 Answer Date Recorded Retired PHQ-9: Brief Depression Severity Measure Score 8 12/19/2022 Comments Unknown Sex and Gender Information Value Date Recorded Sex Assigned at Not on file Legal Sex Female 9:58 AM EDT Gender Identity Not on file Sexual Orientation Not on file Last Filed Vital Signs Vital Sign Reading Time Taken Comments Blood Pressure 116/76 12/27/2022 11:39 AM EDT Pulse 81 12/19/2022 11:47 AM EDT Temperature 35.7 C (96.2 F) 12/19/2022 11:47 AM EDT Respiratory Rate 18 12/19/2022 11:47 AM EDT Oxygen Saturation 97% 12/19/2022 11:47 AM EDT Inhaled Oxygen Concentration - - Weight 68.5 kg (151 lb) 12/27/2022 11:39 AM EDT Height 175.3 cm (5' 9 ) 12/27/2022 11:39 AM EDT Body Mass Index 22.3 12/27/2022 11:39 AM EDT Plan of Treatment Health Maintenance Due Date Last Done Comments DXA SCAN 1940 Pneumococcal Vaccine 50+ (1 of 1 - PCV) 02/16/1992 ZOSTER VACCINE (1 of 2) 02/16/1992 RSV Vaccine - Adults (1 - 1- dose 75+ series) 2017 ANNUAL WELLNESS VISIT 06/26/2022 TDAP/TD VACCINES (2 - Td or Tdap) 02/25/2024 014 COVID-19 Vaccine (4 - 2024-2 6 season) 2025 07/31/2021, 11/24/2020, 10/27/2020 INFLUENZA VACCINE 05/05/2025 05/10/2022, , 04/19/2020, Additional history exists Insurance MEDICARE A & B [facility] [employer] [facility] Care Teams 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
--- OUTSIDE RECORDS SUMMARY | 2025-04-13 18:53 | XMS_ITS | Clinical Summary ---
Author Organization [facility] Address [address] [place] [address] Care Team Providers Care Accounting Instructor Name Role Phone Sergey Stout MD Primary Care Provider [phone] Allergies Active Allergy Reactions Criticality Noted Date Comments Sulfacetamide Rash,Hives,Other - please document in the comment field,Unknown - Patient states they do not know rxn details Medium 01/17/2012 Benadryl did not help the rash/hives Benadryl did not help the rash/hives dizziness Medications atorvastatin (Lipitor) 80 MG tablet 04/25/2020 Active buPROPion SR (Wellbutrin SR) 150 MG 12 hr tablet TAKE 1 TABLET BY MOUTH IN THE MORNING ONCE DAILY 04/17/2021 Active cholecalciferol (D3-5) 5,000 Units tablet 04/25/2020 Active DULoxetine (Cymbalta) [address] capsule 04/25/2020 Activ e gabapentin (Neurontin) 300 MG capsule 05/02/2021 Active Melatonin 5 MG tablet tablet 1 tab(s) orally once a day (at bedtime) Active Meloxicam 7.5 MG tablet dispersibleIndi cations:Osteoar thritis Take 1 tablet by mouth 2 (two) times a day if needed (moderate pain and inflammation ). Do not take with other NSAIDs. Take with food. 60 tablet 1 05/03/2021 Active Multiple Vitamins-Minera ls (multivitamin with minerals) tablet Take 1 tablet by mouth 1 (one) time each day. Active calcium acetate (Phoslo) 667 MG capsule Take 1,334 mg by mouth 3 (three) times a day with meals. Active fish oil ([place]-3) 500 MG capsule Take 500 mg by mouth 1 (one) time each day. Active aspirin 81 MG chewable tablet Chew 81 mg 1 (one) time each day. Active polycarbophil (Fibercon) 625 MG tablet Take by mouth 1 (one) time each day. Active polyethylene glycol (Miralax) 17 g packet Take 17 g by mouth 1 (one) time each day. Active Active Problems No known active problems Immunizations Immunization Administration Dates Next Due Tdap 02/24/2014 Family History Medical History Relation Name Comments Diabetes Mother Relation Name Status Comments Mother Social History Tobacco Use Types Packs/Day Years Used Date Smoking Tobacco: Never Smokeless Tobacco: Never Alcohol Use Standard Drinks/Week Comments Never 0 (1 standard drink = 0.6 oz pur e alcohol) Comments Unknown Sex and Gender Information Value Date Recorded Sex Assigned at Not on file Legal Sex Female 8:16 PM EDT Gender Identity Not on file Sexual Orientation Not on file Last Filed Vital Signs Vital Sign Reading Time Taken Comments Blood Pressure 145/82 07/03/2021 12:32 PM EST Pulse 75 07/03/2021 12:32 PM EST Temperature - - Respiratory Rate - - Oxygen Saturation - - Inhaled Oxygen Concentration - - Weight 72.4 kg (159 lb 9.8 oz) 07/03/2021 12:32 PM EST Height 177.8 cm (5' 10 ) 07/03/2021 12:32 PM EST Body Mass Index 22.9 07/03/2021 12:32 PM EST Plan of Treatment Health Maintenance Due Date Last Done Comments [facility]-Bone Density Scan 1940 [facility]-Depression Screening 1942 [facility]-Infant/Child/Adol SDOH Screenings 1940 [facility]- SDOH Screenings 02/16/1960 [facility]-Adult SDOH Screenings 02/16/1960 [facility]-Zoster Vaccines (2 of 3) 09/27/2014 08/02/2014 [facility]-RSV Vaccine: 60+ Years or (1 - 1-dose 75+ series) 2017 [facility]-DTaP,Tdap,and Td Vaccines (2 - Td or Tdap) 02/25/2024 02/24/2014 [facility]I-LUGIC-17 Vaccine (3 - season) 2025 11/24/2020, 10/27/2020 [facility]-Influenza Vaccine (#1) 04/05/202504/11, 04/19/2020, 05/05/2019, Additional history exists [facility]-Pneumococcal Vaccine: 50+ Years Completed 06/05/2016, 08/27/2007 HPV Vaccines Aged Out No longer eligi ble based on patient's age to complete this topic [facility]-HIB Vaccines Aged Out No longer e ligible based on patient's age to complete this topic [facility]-Hepatitis A Vaccines Aged Out No longer eligible based on patient's age to complete this topic [facility]-IPV Vaccines Aged Out No longer e ligible based on patient's age to complete this topic [facility]-Rotavirus Vaccines Aged Out No lo nger eligible based on patient's age to complete this topic [place] [address] [employer] Care Teams Accounting Instructor Relationship Specialty Start Date End Date Sergey Stout MD [address] [place] [address] [place] [address] PCP - General 12/16/20
--- OUTSIDE RECORDS SUMMARY | 2025-04-13 18:53 | XMS_ITS | Patient Health Record ---
Author Organization [facility] Address [address] [facility] [address] [place] [address] Care Team Providers Care Speech Pathologist Assistant Name Role Phone Sergey Stout Primary Care Provider Migration, Provider Unavailable Unavailable Allergies Allergen (clinical drug ingredient) Drug/Non Drug Allergy documented on EMR Reaction Allergy Type Onset Date Status SULFA (uncoded) Unknown Allergy Acti ve Medications Medication SIG (Take, Route, Frequency, Duration) Notes Start Date End Date Status Cetirizine HCl 10 MG 1 tab(s) orally once a day; Duration: 30 day(s) 12/11/2021 Active Alendronate Sodium 70 MG 1 tab(s) orally once a week; Duration: 28 day(s) 12/09/2020 Active Gabapentin 300 MG 1 cap(s) orally 3 times a day; Duration: 90 days 04/03/2022 Active NIGHTIME SLEEPAID 1 CAP(S) ORALLY EVERY NIGHT *Please review for potential replacement for e-prescription and drug interaction check* Active MIRALAX (OBSOLETE) ORALLY DAILY *Please revie w for potential replacement for e-prescription and drug interaction check* Active Fish Oil 1000 MG DIRECTED PO QD 300mg *Please review and pick correct strength-formulatio n from Medispan options. If intended option is not shown, discontinue and re-order from Quick Search* 11/19/2013 Active Atorvastatin Calcium 80 MG 1 tab(s) orally once a day; Duration: 90 days Active Aspirin 81 MG 1 tab(s) orally bid Active Voltaren 1 % 2 g applied topically 4 times a day; Duration: 30 day(s) 10/10/2021 Active Fluticasone Propionate 50 MCG/ACT 1 spray(s) in each nostril once a day; Duration: 30 day(s) 12/11/2021 Active Metamucil Smooth Texture 58.6 % as directed orally 3 times a day; Duration: 7 day(s) Active Calcium 600 + D 600 MG-800 INTL UNITS 1 TAB(S) ORALLY 2 TIMES A DAY *Please review and pick correct strength-formulatio n from Dailysingle options. If intended option is not shown, discontinue and re-order from Quick Search* Active DULoxetine HCl 60 MG 1 cap(s) orally once a day; Duration: 90 days Active Vitamin D (Ergocalciferol) 2000 MG 1 CAP(S) ORALLY DAILY; Duration: 90 DAYS *Please review and pick correct strength-formulatio n from Dailysingle options. If intended option is not shown, discontinue and re-order from Quick Search* Active buPROPion HCl ER (SR) 150 MG 1 tab(s) orally once a day (in the morning); Duration: 90 day(s) Active Multivitamin 1 TAB ONCE A DAY *Please review and pick correct strength-formulatio n from Dailysingle options. If intended option is not shown, discontinue and re-order from Quick Search* Active Immunizations Vaccine Route Administration Date Status Comme nts Zostavax (Shingles) SC Subcutaneous 08/02/2014 Administere d Prevnar PCV-13 (Pneumococcal conjugate 13) IM Intramuscular 06/05/2016 Administered Pneumococcal Vaccine Unknown 08/27/2007 Administered Influenza (Fluzone)--Medicare only IM Intramuscular 06/28/2015 Administered Influenza (Fluzone)--Medicare only IM Intramuscular 06/05/2016 Administered Influenza (Fluzone)--Medicare only IM Intramuscular 05/14/2017 Administered Fluzone High Dose IM Intramuscular 04/22/2018 Administered Fluzone High Dose IM Intramuscular 05/05/2019 Administered Fluzone High Dose IM Intramuscular 04/19/2020 Administered Fluzone High Dose IM Intramuscular 04/11/2021 Administered Fluvirin--Influenza vaccine 3+ year Unknown 05/14/2007 Administered Fluvirin--Influenza vaccine 3+ year Unknown 05/18/2008 Administered Fluvirin--Influenza vaccine 3+ year Unknown 05/03/2009 Administered Fluvirin--Influenza vaccine 3+ year IM Intramuscular 05/17/2010 Administered Fluvirin--Influenza vaccine 3+ year Unknown 05/30/2011 Administered Social History Tobacco Use: Social History Observation Description Date Details (start date - stop date) Never Smoker NA - NA Smoking: Question Answer Notes Are you a: nonsmoker Additional Findings: Tobacco Non-User Current no n-smoker Problems Problem Type SNOMED Code ICD Code Onset Dates Problem Status W/U Status Risk Notes Problem Mild major depression, single episode (44910117) Major depressive disorder, single episode, 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) Active confirmed Problem Seasonal allergic rhinitis (925424561) Other seasonal allergic rhinitis (J30.2) Active confirmed Problem Allergic rhinitis (43230762) Other allergic rhinitis (J30.89) Active confirmed Problem Vitamin D deficiency (81276120) Vitamin D deficiency (E55.9) Active confirmed Problem Hyperlipidemia (71408441) Hyperlipemia, 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 Problem Essential hypertension (59085478) Hypertension, essential (I10) Active confirmed Problem Osteoarthritis of knee (678883656) Primary osteoarthritis of left knee (M17.12) Active confirmed Problem Abnormal mammogram (710638415) Abnormal mammogram (R92.8) Active confirmed Problem Family History of Cancer of Colon (Situation) (906166887) Family history of colon cancer (Z80.0) Active confirmed Problem Sciatica (20501004) Sciatica of right side (M54.31) Active confirmed Problem Sciatica (94689033) Sciatica of left side (M54.32) Active confirmed Problem Left rotator cuff syndrome (691177576149825) Rotator cuff syndrome of left shoulder (M75.102) Active confirmed Problem Personal history of primary malignant neoplasm of breast (683323056) History of left breast cancer (Z85.3) Active confirmed Problem Osteoarthritis (126459372) Osteoarthritis involving multiple joints on both sides of body (M15.9) Active confirmed Problem Macrocytosis (17778576) Macrocytosis (D75.89) Active confirmed Problem History of iron deficiency (499565130) History of iron deficiency (Z86.39) Active confirmed Problem Lymphedema (630278476) Lymphedema of left arm (I89.0) Active confirmed Encounters Encounter Location Date Provider Diagnosis [facility] [address] [place] [address] 11/07/2024 Provider Migration Mechanical low back pain M54.59 and Persistent cough R05.3 Assessments Encounter Date Diagnosis (ICD Code) Assessment Notes Treatment Notes Treatment Clinical Notes Section Notes 11/07/2024 Mechanical low back pain (ICD-10 - M54.59) 11/07/2024 Persistent cough (ICD-10 - R05.3) Plan Of Treatment Pending Test Test Name Order Date N-CBC 07/02/2011 X ray : Chest 11/16/2013 Ultrasound : Breast, Left 09/29/2018 Urinalysis 01/07/2012 X ray : Knee, Left 07/21/2010 X ray : Knee, Right 07/21/2010 X ray : Hip, Bilateral 07/21/2010 N-TSH (Thyroid Stimulating Hormone) 06/06 N-CMP 07/02/2011 N-Lipid Panel 07/02/2011 Mammogram : Bilateral 10/14/2020 CT Scan : Abdomen and Pelvis with contra st 01/26/2019 N-H & H 2012 CT Scan : Chest with Contrast 02/05/2012 C-CBC 07/07/2014 C-CMP 07/07/2014 C-CMP 03/23/2016 C-CMP 11/01/2020 C-LIPID PANEL 11/01/2020 C-LIPID PANEL 07/07/2014 C-LIPID PANEL 03/23/2016 C-TSH 07/07/2014 C-PROTEIN C ACTIVITY 01/07/2012 C-VITAMIN D, 25-HYDROXY 07/07/2014 C-VITAMIN D, 25-HYDROXY 03/23/2016 N-CRP 01/05/2010 Ferritin, Serum 04/29/2012 Ultrasound : Soft Tissue 09/29/2018 Physical Therapy : Lymphedema 11/24/2018 M-BUN & Creatinine 01/26/2019 M-Vitamin D 25 Hydroxy 04/11/2021 Insurance Providers Payer Name Payer Address Payer Phone Subscriber Number Group Number Insured Name Patient Relationship to Insured Coverage Start Date Coverage End Date [place] [place] [address] [id number] Roro Singleton Self - patient is the insured [employer] Health and Life Insurance [address] [address] [place] [address] [id number] SingletonRoro Self - patient is the insured Medications Administered Medication Instructions Date of Administration Dosage Notes Ceftriaxone 500 11/16/2013 1000 mg Ceftriaxone 500 05/11/2014 500 mg Kenalog 40mg 12/11/2016 40 mg Triamcinolone Acetonide 40mg Injection 03/03/2019 1 mL Kenalog 05/11/2014 1 mL Kenalog 10/26/2016 1 mL Medical (General) History Medical History History ICD Code Hypertension hyperlipidemia Knee osteoarthritis Depression Vit D deficiency Breast cancer - mammograms i n October of 2018 recommended 6 month followup-benign scarring appreciated - in April unchanged.. rec f/u in october 2019 - done in october 2019 and normal - normal again 10/23 Insomnia Colonoscopy 03/2018 with tubular adenoma Dexa 11/23 with mild osteoporosis... prol ia recommended Normal mammogram 10/2021 Surgical History Surgery Date(Month/Year) Cholecystectomy OSCAR/BSO Mastectomy Hand surgery cataracts 2014 Colonscopy R total knee replacement 2007 back surgery - with shanna fercho [place]. Contemplated epidural and orthopedic office 09/20/17 Hospitalization History Reason Date(Month/Year) above pneumonia pneumonia/flu 10/2016
[2025-04-13 19:00] VITALS: BP 176/76; PULSE 74; RESP 14; O2SAT 95
[2025-04-13] MEDS: ACETAMINOPHEN 500MG TAB 1000 MG PO (19:00)
[2025-04-13 19:30] VITALS: BP 161/81; PULSE 73; RESP 15; O2SAT 95
[2025-04-13 19:39] VITALS: BP 161/81; PULSE 74; RESP 21; TEMP 37.1; O2SAT 95
== END 2025-04-13 19:52 | disposition home or self-care (01) ==
PROVIDERS: Emergency Provider Student in an Organized Health Care Education/Training Program; PCP Family Medicine
DX: T14.8XXA Other injury of unspecified body region, initial encounter (principal); E78.5 Hyperlipidemia, unspecified
CPT/HCPCS: 73610; 73630; 93005; 99285

== ENCOUNTER 2025-05-11 08:41 | Outpatient (CLI) | payer MEDICARE, BC, SELFPAY ==
--- OUTSIDE RECORDS SUMMARY | 2024-11-07 17:30 | XMS_ITS ---
Author Organization [facility] D [facility] Address [address] [facility] [address] [place] [address] Care Team Providers Care Senior Bookkeeper Name Role Phone CucaamandaSergey Primary Care Provider Migration, Provider Unavailable Unavailable Allergies Allergen (clinical drug ingredient) Drug/Non Drug Allergy documented on EMR Reaction Allergy Type Onset Date Status SULFA (uncoded) Unknown Allergy Acti ve REASON FOR VISIT [facility] To [facility] Conversion Encounter Medications Medication SIG (Take, Route, [...] review and pick correct strength-formulatio n from [employer] options. If intended option is not shown, discontinue and re-order from Quick Search* 11/19/2013 Active Aspirin 81 MG 1 tab(s) orally bid Active Gabapentin 300 MG 1 cap(s) orally 3 times a day; Duration: 90 days 04/03/2022 Active Calcium 600 + D 600 MG-800 INTL UNITS 1 TAB(S) ORALLY 2 TIMES A DAY *Please review and pick correct strength-formulatio n from [employer] options. If intended option is not shown, discontinue and re-order from Quick Search* Active Vitamin D (Ergocalciferol) 2000 MG 1 CAP(S) ORALLY DAILY; Duration: 90 DAYS *Please review and pick correct strength-formulatio n from [employer] options. If intended option is not shown, discontinue and re-order from Quick Search* Active Multivitamin 1 TAB ONCE A DAY *Please review and pick correct strength-formulatio n from [employer] options. If intended option is not shown, discontinue and re-order from Quick Search* Active Encounters Encounter Location Date Provider Diagnosis [facility] [address] [facility] [address] [place] [address] 11/07/2024 Provider Migration Mechanical low back pain [...] * Roro CANCHOLA HDOB:1940 (85 yo F)Acc No.[id number]:11/07/2024 Patient: Roro KIMBROUGH Provider: Aris hagan Migration :1940 A ge:84 Y S ex:Female Date:11/07/2024 Address:[address], [place], [id number] Pcp:Sergey Stout Subjective: * Chief Complaints: * [facility] . [facility] * Medical History: * Medications: T aking Multivitamin 1 TAB ONCE A DAY , Notes to Pharmacist: *Please review and pick correct strength-formulation from [employer] options. If intended option is not shown, discontinue and re-order from Quick Search*, Taking Calcium 600 + D 600 MG-800 INTL UNITS TABLET 1 TAB(S) ORALLY 2 TIMES A DAY , Notes to Pharmacist: *Please review and pick correct strength-formulation from [employer] options. If intended option is not shown, discontinue and re-order from Quick Search*, Taking Vitamin D (Ergocalciferol) 2000 MG CAPSULE 1 CAP(S) ORALLY DAILY , Notes to Pharmacist: *Please review and pick correct strength-formulation from [employer] options. If intended option is not shown, discontinue and re-order from Quick Search*, Taking Fish Oil 1000 MG DIRECTED PO QD , Notes to Pharmacist: 300mg *Please review and pick correct strength- formulation from [employer] options. If intended option is not shown, [...] tab(s), orally, once a week, 28 day(s), 4.69744, Refills 2; S tart buPROPion HCl ER [...] Electronic signature of Prov ider Migration on 05/11/2025 at 08:53 AM EDT Sign off status: Pending * Provider: Aris hagan Migration Date: 0 11/07/2024 Generated for New rodriguez/Shani/Joneitting on: 1 08:53 AM EDT
--- NOTE | 2025-05-11 08:45 | XR_ITS ---
FINAL REPORT CLINICAL HISTORY: Evaluation of left foot fracture COMPARISON: 04/13/2025 FINDINGS: LEFT FOOT Three views were obtained. There has been interval healing at the base of the distal phalanx great toe. No acute osseous abnormality is identified. There is likely an old avulsion fracture at the base of the fifth metatarsal, unchanged. Mild degenerative disease is identified. There is no acute soft tissue swelling. IMPRESSION: Interval healing at the base of the distal phalanx great toe. Reviewed, Interpreted and Dictated by Batool Freitas MD Transcribed by Jodi Russell Authenticated and [facility]
--- OUTSIDE RECORDS SUMMARY | 2025-05-11 08:53 | XMS_ITS | Clinical Summary ---
Author Organization [facility] Address [address] [place] [address] Care Team Providers Care Kettle Coordinator Name Role Phone Pool Brown MD Primary Care Provider [phone] Allergies Active Allergy Reactions Criticality Noted Date [...] Take 1 tablet by mouth Daily. Active [place]-3 Fatty Acids ([place]-3 Fish Oil) 500 MG capsule Take 500 [...] (2 - Td or Tdap) 02/25/2024 014 INFLUENZA VACCINE 03/05/2025 05/10/2022, , 04/19/2020, Additional history exists COVID-19 Vaccine ( - 2024-2 6 season) 2025 07/31/2021, 11/24/2020, 10/27/2020 Insurance MEDICARE A & B [facility] [employer] [facility] Care Teams Kettle Coordinator Relationship Specialty Start Date End Date Pool Brown MD PCP - General Family Medicine 06/26/22
--- OUTSIDE RECORDS SUMMARY | 2025-05-11 08:53 | XMS_ITS | Patient Health Record ---
Author Organization [facility] Address [address] [facility] [address] [place] [address] Care Team Providers Care Nightman Name Role Phone Sergey Stout Primary Care Provider [phone] Migration, Provider Unavailable Unavailable Allergies Allergen (clinical [...] review and pick correct strength-formulatio n from [employer]en [employer] options. If intended option is not shown, discontinue and re-order from Quick Search* Active DULoxetine HCl 60 MG 1 cap(s) orally once a day; Duration: 90 days Active Vitamin D (Ergocalciferol) 2000 MG 1 CAP(S) ORALLY DAILY; Duration: 90 DAYS *Please review and pick correct strength-formulatio n from [employer] options. If intended option is not shown, discontinue and re-order from Quick Search* Active buPROPion HCl ER (SR) 150 MG 1 tab(s) orally once a day (in the morning); Duration: 90 day(s) Active Multivitamin 1 TAB ONCE A DAY *Please review and pick correct strength-formulatio n from [employer] options. 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) Active confirmed Problem Seasonal allergic rhinitis (972603373) Other seasonal allergic rhinitis (J30.2) Active confirmed Problem Allergic rhinitis (94814553) Other allergic rhinitis (J30.89) Active confirmed Problem Vitamin D deficiency (94893648) Vitamin D deficiency (E55.9) Active confirmed Problem Hyperlipidemia (44991832) Hyperlipemia, 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 Problem Essential hypertension (66388397) Hypertension, essential (I10) Active confirmed Problem Osteoarthritis of knee (866373545) Primary osteoarthritis of left knee (M17.12) Active confirmed Problem Abnormal mammogram (657289883) Abnormal mammogram (R92.8) Active confirmed Problem Family History of Cancer of Colon (Situation) (891799708) Family history of colon cancer (Z80.0) Active confirmed Problem Sciatica (04671045) Sciatica of right side (M54.31) Active confirmed Problem Sciatica (78875108) Sciatica of left side (M54.32) Active confirmed Problem Left rotator cuff syndrome (194203830792077) Rotator cuff syndrome of left shoulder (M75.102) Active confirmed Problem Personal history of primary malignant neoplasm of breast (867681407) History of left breast cancer (Z85.3) Active confirmed Problem Osteoarthritis (243073497) Osteoarthritis involving multiple joints on both sides of body (M15.9) Active confirmed Problem Macrocytosis (20265143) Macrocytosis (D75.89) Active confirmed Problem History of iron deficiency (614080441) History of iron deficiency (Z86.39) Active confirmed Problem Lymphedema (856230641) Lymphedema of left arm (I89.0) Active confirmed Encounters Encounter Location Date Provider Diagnosis [facility] [address] [place] [address] 11/07/2024 Provider Migration Mechanical low back pain [...] C-CMP 11/01/2020 C-LIPID PANEL 11/01/2020 C-LIPID PANEL 03/23/2016 C-LIPID PANEL 07/07/2014 C-TSH 07/07/2014 C-PROTEIN C ACTIVITY 01/07/2012 C-VITAMIN [...] End Date [place] [place] [address] [id number] Roro Singleton Self - patient is the insured [facility] Health and Life Insurance [address] [address] [place] [address] [id number] SingletonRoro Self - patient is the insured [...]
--- OUTSIDE RECORDS SUMMARY | 2025-05-11 08:54 | XMS_ITS | Clinical Summary ---
Author Organization [facility] Address [address] [place] [address] Care Team Providers Care Printed Circuit Boards Plasma Etcher Name Role Phone Sergey Stout MD Primary Care Provider [phone] Allergies Active Allergy Reactions Criticality Noted Date [...] a day with meals. Active fish oil ([place]-3) 500 MG capsule Take 500 mg by [...] [facility]-Bone Density Scan 1942 [facility]-Depression Screening 1942 [facility]-/Child/Adol SDOH Screenings 1942 [facility]- SDOH Screenings 02/16/1960 [facility]-Adult SDOH Screenings 02/16/1960 [facility]-Zoster Vaccines (2 of 3) 09/27/2014 08/02/2014 [facility]-RSV Vaccine: 60+ Years or (1 - 1-dose 75+ series) 2017 [facility]-DTaP,Tdap,and Td Vaccines (2 - Td or Tdap) 02/25/2024 02/24/2014 [id number] Vaccine (3 - season) 2025 11/24/2020, 10/27/2020 [...] age to complete this topic Insurance MEDICARE [employer] Care Teams Printed Circuit Boards Plasma Etcher Relationship Specialty Start Date End Date Sergey Stout MD [address] [place] [address] [place] [address] PCP - General 12/16/20
== END 2025-05-11 23:59 | disposition home or self-care (01) ==
LOC: RAD 08:42
PROVIDERS: PCP Family Medicine; Visit Provider Nurse Practitioner
DX: S92.422D Displaced fracture of distal phalanx of left great toe, subsequent encounter for fracture with routine healing (principal); X58.XXXD Exposure to other specified factors, subsequent encounter; M19.072 Primary osteoarthritis, left ankle and foot
CPT/HCPCS: 73630

== ENCOUNTER 2025-06-16 10:26 | Outpatient (CLI) | payer MEDICARE, BC, SELFPAY ==
--- OUTSIDE RECORDS SUMMARY | 2024-11-07 16:30 | XMS_ITS ---
Author Organization [facility] D [facility] Address [address] [facility] [address] [place] [address] Care Team Providers Care Strapper Operator Name Role Phone CucaamandaSergey Primary Care Provider [phone] Migration, Provider Unavailable Unavailable Allergies Allergen (clinical drug ingredient) Drug/Non Drug Allergy documented on EMR Reaction Allergy Type Onset Date Status SULFA (uncoded) Unknown Allergy Acti ve REASON FOR VISIT [facility] To [facility] Conversion Encounter Medications Medication SIG (Take, Route, Frequency, Duration) Notes Start Date End Date Status Cetirizine HCl 10 MG 1 tab(s) orally once a day; Duration: 30 day(s) 12/11/2021 Active Fluticasone Propionate 50 MCG/ACT 1 spray(s) in each nostril once a day; Duration: 30 day(s) 12/11/2021 Active Alendronate Sodium 70 MG 1 tab(s) orally once a week; Duration: 28 day(s) 12/09/2020 Active DULoxetine HCl 60 MG 1 cap(s) orally once a day; Duration: 90 days Active buPROPion HCl ER (SR) 150 MG 1 tab(s) orally once a day (in the morning); Duration: 90 day(s) Active NIGHTIME SLEEPAID 1 CAP(S) ORALLY EVERY NIGHT *Please review for potential replacement for e-prescription and drug interaction check* Active MIRALAX (OBSOLETE) ORALLY DAILY *Please revie w for potential replacement for e-prescription and drug interaction check* Active Atorvastatin Calcium 80 MG 1 tab(s) orally once a day; Duration: 90 days Active Voltaren 1 % 2 g applied topically 4 times a day; Duration: 30 day(s) 10/10/2021 Active Metamucil Smooth Texture 58.6 % as directed orally 3 times a day; Duration: 7 day(s) Active Fish Oil 1000 MG DIRECTED PO QD 300mg *Please review and pick correct strength-formulatio n from [employer] options. If intended option is not shown, discontinue and re-order from Quick Search* 11/19/2013 Active Aspirin 81 MG 1 tab(s) orally bid Active Gabapentin 300 MG 1 cap(s) orally 3 times a day; Duration: 90 days 04/03/2022 Active Calcium 600 + D 600 MG-800 INTL UNITS 1 TAB(S) ORALLY 2 TIMES A DAY *Please review and pick correct strength-formulatio n from [employer] options. If intended option is not shown, discontinue and re-order from Quick Search* Active Vitamin D (Ergocalciferol) 2000 MG 1 CAP(S) ORALLY DAILY; Duration: 90 DAYS *Please review and pick correct strength-formulatio n from [employer] options. If intended option is not shown, discontinue and re-order from Quick Search* Active Multivitamin 1 TAB ONCE A DAY *Please review and pick correct strength-formulatio n from [employer] options. If intended option is not shown, discontinue and re-order from Quick Search* Active Encounters Encounter Location Date Provider Diagnosis [facility] [address] [facility] [address] [place] [address] 11/07/2024 Provider Migration Mechanical low back pain M54.59 and Persistent cough R05.3 Assessments Encounter Date Diagnosis (ICD Code) Assessment Notes Treatment Notes Treatment Clinical Notes Section Notes 11/07/2024 Mechanical low back pain (ICD-10 - M54.59) 11/07/2024 Persistent cough (ICD-10 - R05.3) Plan Of Treatment Medication Medication Name Sig Start Date Stop Date Notes Cetirizine HCl 10 MG 1 tab(s) orally onc e a day; Duration: 30 day(s) 12/11/2021 Alendronate Sodium 70 MG 1 tab(s) orally once a week; Duration: 28 day(s) 12/09/2020 DULoxetine HCl 60 MG 1 cap(s) orally onc e a day; Duration: 90 days buPROPion HCl ER (SR) 150 MG 1 tab(s) or ally once a day (in the morning); Duration: 90 day(s) Atorvastatin Calcium 80 MG 1 tab(s) oral ly once a day; Duration: 90 days Gabapentin 300 MG 1 cap(s) orally 3 ti mes a day; Duration: 90 days 04/03/2022 Progress Notes * Roro CANCHOLA HDOB:1940 (85 yo F)Acc No.[id number]:11/07/2024 Patient: Roro KIMBROUGH Provider: Aris hagan Migration :1940 A ge:84 Y S ex:Female Date:11/07/2024 Address:[address], [place], [id number] Pcp:Sergey Stout Subjective: * Chief Complaints: * [facility] * Medical History: * Medications: T aking Multivitamin 1 TAB ONCE A DAY , Notes to Pharmacist: *Please review and pick correct strength-formulation from [employer] options. If intended option is not shown, discontinue and re-order from Quick Search*, Taking Calcium 600 + D 600 MG-800 INTL UNITS TABLET 1 TAB(S) ORALLY 2 TIMES A DAY , Notes to Pharmacist: *Please review and pick correct strength-formulation from [employer] options. If intended option is not shown, discontinue and re-order from Quick Search*, Taking Vitamin D (Ergocalciferol) 2000 MG CAPSULE 1 CAP(S) ORALLY DAILY , Notes to Pharmacist: *Please review and pick correct strength-formulation from [employer] options. If intended option is not shown, discontinue and re-order from Quick Search*, Taking Fish Oil 1000 MG DIRECTED PO QD , Notes to Pharmacist: 300mg *Please review and pick correct strength- formulation from [employer] options. If intended option is not shown, discontinue and re-order from Quick Search*, Taking Aspirin 81 MG Tablet Delayed Release 1 tab(s) orally bid , Taking NIGHTIME SLEEPAID 1 CAP(S) ORALLY EVERY NIGHT , Notes to Pharmacist: *Please review for potential replacement for e-prescription and drug interaction check*, Taking MIRALAX (OBSOLETE) ORALLY DAILY , Notes to Pharmacist: *Please review for potential replacement for e-prescription and drug interaction check*, Taking Metamucil Smooth Texture 58.6 % Powder as directed orally 3 times a day , Taking Voltaren 1 % Gel 2 g applied topically 4 times a day , Taking Fluticasone Propionate 50 MCG/ACT Suspension 1 spray(s) in each nostril once a day * Allergies: S ULFA. Objective: * Vitals: Assessment: * Assessment: 1. M echanical low back pain - M54.59 2 . P ersistent cough - R05.3 ? Plan: * Treatment: 2. P ersistent cough Continue Cetirizine HCl Tablet, 10 MG, 1 tab(s), orally, once a day, 30 day(s), 30 Tablet, Refills 5. 3. O thers Refill Alendronate Sodium Tablet, 70 MG, 1 tab(s), orally, once a week, 28 day(s), 4.93010, Refills 2; S tart buPROPion HCl ER (SR) Tablet Extended Release 12 Hour, 150 MG, 1 tab(s), orally, once a day (in the morning), 90 day(s), 90, Refills 3; S tart DULoxetine HCl Capsule Delayed Release Particles, 60 MG, 1 cap(s), orally, once a day, 90 days, 90 Capsule, Refills 1; S tart Atorvastatin Calcium Tablet, 80 MG, 1 tab(s), orally, once a day, 90 days, 90, Refills 3. * * Electronic signature of Prov ider Migration on 06/17/2025 at 10:42 AM EST Sign off status: Pending * Provider: Aris hagan Migration Date: 0 11/07/2024 Generated for New rodriguez/Shani/Joneitting on: 1 08/17/2024 10:42 AM EST
[2025-06-16 17:06] LABS: Hematocrit 36.0 % (37.0-47.0); Hemoglobin 11.4 g/dL (12.2-16.2); Immature Granulocytes % 1.2 %; Mean Corpuscular HGB Conc 31.7 g/dL (31.8-35.4); Mean Corpuscular Hemoglobin 31.6 pg (27.0-31.2); Mean Corpuscular Volume 99.7 fl (81-99); Nucleated Red Blood Cells % 0 %; Platelet Count 228 K/mm3 (142-424); Red Blood Count 3.61 M/mm3 (4.20-5.40); Red Cell Distribution Width-SD 47.4 fL; White Blood Count 5.9 K/mm3 (4.8-10.8)
[2025-06-16 18:09] LABS: Alanine Aminotransferase 24 U/L (12-78); Albumin Level 4.2 g/dl (3.5-5.0); Albumin/Globulin Ratio 1.6 (1.1-1.8); Alkaline Phosphatase 67 U/L (38-126); Anion Gap 10.6 mEq/L (5-15); Aspartate Amino Transferase 37 U/L (14-36); Bilirubin,Total 0.6 mg/dl (0.2-1.3); Blood Urea Nitrogen 20 mg/dl (7-17); Calcium 9.6 mg/dl (8.4-10.2); Carbon Dioxide 27 mmol/L (22.0-30.0); Chloride 105 mmol/L (98-107); Cholesterol 148 mg/dl (140-200); Creatinine,Serum 1.10 mg/dl (0.52-1.04); Estimated Glomerular Filt Rate 47 ml/min (>60); GFR (African American) 57 ML/MIN (>60); Globulin 2.6 g/dL (1.3-3.2); Glucose 78 mg/dl (74-100); HDL Cholesterol 67 mg/dl (40-60); Potassium 4.6 mmoL/L (3.5-5.1); Sodium 138 mmol/L (136-145); Total Protein,Serum 6.8 g/dl (6.3-8.2); Triglycerides 122 mg/dl (30-150)
[2025-06-16 18:39] LABS: Thyroid Stimulating Hormone 2.34 uIU/mL (0.465-4.68)
--- OUTSIDE RECORDS SUMMARY | 2025-06-17 10:42 | XMS_ITS | Clinical Summary ---
Author Organization [facility] Address [address] [place] [address] Care Team Providers Care Machine Tool Electrician Name Role Phone Sergey Stout MD Primary Care Provider [phone] Allergies Active Allergy Reactions Criticality Noted Date [...] a day with meals. Active fish oil (Royal-3) 500 MG capsule Take 500 mg by [...] (2 - Td or Tdap) 02/25/2024 02/24/2014 [id number] Vaccine (3 - season) 2025 11/24/2020, 10/27/2020 [...] age to complete this [place] [address] [employer] Care Teams Machine Tool Electrician Relationship Specialty Start Date End Date Sergey Stout MD [address] [place] [address] [place] [address] PCP - General 12/16/20
--- OUTSIDE RECORDS SUMMARY | 2025-06-17 10:42 | XMS_ITS | Patient Health Record ---
Author Organization [facility] Address [address] [facility] [address] [place] [address] Care Team Providers Care Auto Phone Installer Name Role Phone Sergey Stout Primary Care Provider [phone] Migration, Provider Unavailable Unavailable Allergies Allergen (clinical [...] review and pick correct strength-formulatio n from Peel-Works options. If intended option is not shown, discontinue and re-order from Quick Search* Active DULoxetine HCl 60 MG 1 cap(s) orally once a day; Duration: 90 days Active Vitamin D (Ergocalciferol) 2000 MG 1 CAP(S) ORALLY DAILY; Duration: 90 DAYS *Please review and pick correct strength-formulatio n from Pe[employer]-Works options. If intended option is not shown, discontinue and re-order from Quick Search* Active buPROPion HCl ER (SR) 150 MG 1 tab(s) orally once a day (in the morning); Duration: 90 day(s) Active Multivitamin 1 TAB ONCE A DAY *Please review and pick correct strength-formulatio n from Peel-Works options. If intended option is not shown, discontinue and re-order from Quick Search* Active Immunizations Vaccine Route Administration Date Status Comme nts Fluvirin--Influenza vaccine 3+ year Unknown 05/14/2007 Administered Fluvirin--Influenza vaccine 3+ year Unknown 05/18/2008 Administered Fluvirin--Influenza vaccine 3+ year Unknown 05/03/2009 Administered Fluvirin--Influenza vaccine 3+ year IM Intramuscular 05/17/2010 Administered Fluvirin--Influenza vaccine 3+ year Unknown 05/30/2011 Administered Fluzone High Dose IM Intramuscular 04/22/2018 Administered Fluzone High Dose IM Intramuscular 05/05/2019 Administered Fluzone High Dose IM Intramuscular 04/19/2020 Administered Fluzone High Dose IM Intramuscular 04/11/2021 Administered Influenza (Fluzone)--Medicare only IM Intramuscular 06/28/2015 Administered Influenza (Fluzone)--Medicare only IM Intramuscular 06/05/2016 Administered Influenza (Fluzone)--Medicare only IM Intramuscular 05/14/2017 Administered Pneumococcal Vaccine Unknown 08/27/2007 Administered Prevnar PCV-13 (Pneumococcal conjugate 13) IM Intramuscular 06/05/2016 Administered Zostavax (Shingles) SC Subcutaneous 08/02/2014 Administere d Social History Tobacco Use: Social History Observation Description Date Details (start date - stop date) Never Smoker NA - NA Smoking: Question Answer Notes Are you a: nonsmoker Additional Findings: Tobacco Non-User Current no n-smoker Problems Problem Type SNOMED Code ICD Code Onset Dates Problem Status W/U Status Risk Notes Problem Mild major depression, single episode (99863567) Major depressive disorder, single episode, mild (F32.0) Active confirmed Problem Seasonal allergic rhinitis (672714715) Other seasonal allergic rhinitis (J30.2) Active confirmed Problem Allergic rhinitis (08069307) Other allergic rhinitis (J30.89) Active confirmed Problem Vitamin D deficiency (65584402) Vitamin D deficiency (E55.9) Active confirmed Problem Hyperlipidemia (29572952) Hyperlipemia, 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 Problem Essential hypertension (12375680) Hypertension, essential (I10) Active confirmed Problem Osteoarthritis of knee (259242543) Primary osteoarthritis of left knee (M17.12) Active confirmed Problem Abnormal mammogram (734531272) Abnormal mammogram (R92.8) Active confirmed Problem Family History of Cancer of Colon (Situation) (598789006) Family history of colon cancer (Z80.0) Active confirmed Problem Sciatica (40965780) Sciatica of right side (M54.31) Active confirmed Problem Sciatica (03821575) Sciatica of left side (M54.32) Active confirmed Problem Left rotator cuff syndrome (398223673697985) Rotator cuff syndrome of left shoulder (M75.102) Active confirmed Problem Personal history of primary malignant neoplasm of breast (473064921) History of left breast cancer (Z85.3) Active confirmed Problem Osteoarthritis (078294222) Osteoarthritis involving multiple joints on both sides of body (M15.9) Active confirmed Problem Macrocytosis (14033057) Macrocytosis (D75.89) Active confirmed Problem History of iron deficiency (719688253) History of iron deficiency (Z86.39) Active confirmed Problem Lymphedema (013976105) Lymphedema of left arm (I89.0) Active confirmed Encounters Encounter Location Date Provider Diagnosis [facility] [address] [place] [address] 11/07/2024 Provider Migration Mechanical low back pain [...] End Date [place] [place] [address] [id number] Roro Singleton Self - patient is the insured [facility] Health and Life Insurance [address] [address] [place] [address] [id number] SingletonRoro Self - patient is the insured [...]
--- OUTSIDE RECORDS SUMMARY | 2025-06-17 10:43 | XMS_ITS | Clinical Summary ---
Author Organization [facility] Address [address] [place] [address] Care Team Providers Care Food Truck Caterer Name Role Phone Pool Brown MD Primary Care Provider [phone] Allergies Active Allergy Reactions Criticality Noted Date [...] Take 1 tablet by mouth Daily. Active [place]-3 Fatty Acids ([place]-3 Fish Oil) 500 MG capsule Take 500 [...] (1 - 1- dose 75+ series) 2017 COVID-19 Vaccine (3 - Modern a risk series) 08/28/2021 07/31/2021, 11/24/2020, 10/27/2020 ANNUAL WELLNESS VISIT 06/26/2022 TDAP/TD VACCINES (2 - Td or Tdap) 02/25/2024 014 INFLUENZA VACCINE 03/05/2025 05/10/2022, , 04/19/2020, Additional history exists Insurance MEDICARE A & B [facility] [employer] [facility] Care Teams Food Truck Caterer Relationship Specialty Start Date End Date Pool Brown MD PCP - General Family Medicine 06/26/22
== END 2025-06-16 23:59 ==
LOC: LAB.DROPOF 06-17 10:18
PROVIDERS: PCP Family Medicine; Visit Provider Family Medicine
DX: E78.5 Hyperlipidemia, unspecified (principal); F41.9 Anxiety disorder, unspecified
CPT/HCPCS: 80053; 80061; 84443; 85025